=== PATIENT | male | born 1955 | race Two or more races ===

== ENCOUNTER 2020-12-28 08:35 | Outpatient (REF) | payer MEDICARE, MEDICAID, SELFPAY ==
--- NOTE | ~2020-12-28 | US_ITS ---
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 COMPARISON: Ultrasound abdomen 01/13/2020, 06/21/2017 TECHNIQUE: Real-time imaging of the abdominal viscera. Noninvasive ultrasound liver fibrosis assessment is performed using Marvel ElastPQ point quantification shear wave elastography (pSWE) with a 5 MHz transducer. Multiple elastography samples are obtained. FINDINGS: PANCREAS: The visualized pancreas is normal in size and echogenicity. There is no pancreatic ductal distention or retroperitoneal effusion. Portion distal body and tail are obscured by bowel gas and not completely imaged. ABDOMINAL AORTA: The proximal, middle, and distal aortic segments are normal in caliber. INFERIOR VENA CAVA: Visualized portions are normal. LIVER: The liver is normal in size and smooth in contour. There is mild coarsening of the hepatic parenchymal echotexture. There is mild increased hepatic parenchymal echogenicity consistent with mild hepatic steatosis. No focal hepatic parenchymal lesion or intrahepatic ductal dilatation. The right lobe measures 11.1 cm in length. The left lobe measures 9.1 cm in length. Portal flow is towards the liver (hepatopetal). Shear wave liver elastography median stiffness is 2.07 m/s (reference: normal median stiffness is 1.3 m/s or less). IQR/median stiffness to assess sampling precision is 0.29 (reference: optimal IQR/median stiffness is 0.15 or less). GALLBLADDER: The gallbladder is distended normally. There is no intraluminal stone or sludge or focal wall thickening. A few small echogenic foci are seen within the gallbladder wall with twinkling artifact on color Doppler suggesting mild cholesterolosis. COMMON BILE DUCT: Normal in caliber measuring 0.3 cm in diameter. RIGHT KIDNEY: Normal. No hydronephrosis. No renal calculi or focal parenchymal lesions. The kidney measures 10.0 cm in maximum dimension. LEFT KIDNEY: Normal. No hydronephrosis. No renal calculi or focal parenchymal lesions. The kidney measures 10.9 cm in maximum dimension. Small left renal cyst noted on prior exam is not demonstrated on current study. SPLEEN: Normal. The spleen measures 9.2 cm in maximum dimension. There is an incidental 1 cm splenule left upper quadrant. FREE FLUID: None. US/US abdomen comp w elastography IMPRESSION: 1. Liver normal in size. Mild hepatic steatosis. No focal parenchymal lesion. Portal flow towards the liver. Spleen normal in size. No ascites. 2. Liver elastography: Although measurements are consistent with compensated advanced chronic liver disease, there is statistical variability of the sampling which decreases accuracy. 3. Bowel gas obscures portions of distal body and tail pancreas. 4. Mild cholesterolosis gallbladder. No intraluminal stone, wall thickening, or sludge. No ductal dilatation.
== END 2020-12-28 08:36 | disposition home or self-care (01) ==
LOC: HO.US 08:35
PROVIDERS: PCP Internal Medicine; Visit Provider Internal Medicine
DX: K70.30 Alcoholic cirrhosis of liver without ascites (principal)
CPT/HCPCS: 76705; 76981

== ENCOUNTER 2021-07-23 08:31 | Outpatient (REF) | payer MEDICARE, MEDICAID, SELFPAY ==
--- NOTE | ~2021-07-23 | US_ITS ---
EXAMINATION: US ABDOMEN COMPLETE CLINICAL INFORMATION: Cirrhosis. COMPARISON: Ultrasound abdomen complete dated 01/13/2020 and 06/21/2017. TECHNIQUE: Real-time imaging of the abdominal viscera. FINDINGS: PANCREAS: Not well visualized. ABDOMINAL AORTA: Abdominal aorta is not well visualized. The proximal and distal abdominal aorta is normal in caliber. INFERIOR VENA CAVA: Visualized portions are normal. LIVER: The echotexture is heterogeneous and the contour of the liver is slightly irregular or scalloped suggestive of cirrhosis. No focal liver lesion is seen. There is no biliary duct dilatation. GALLBLADDER: Normal. The gallbladder is physiologically distended without evidence of stones, sludge, polyps, wall thickening or pericholecystic fluid. COMMON BILE DUCT: Normal in caliber measuring 0.35 cm in diameter. RIGHT KIDNEY: Normal. No hydronephrosis. No renal calculi or focal parenchymal lesions. The kidney measures 10.0 cm in maximum dimension. LEFT KIDNEY: Normal. No hydronephrosis. No renal calculi or focal parenchymal lesions. The kidney measures 10.4 cm in maximum dimension. SPLEEN: There is a 1 cm splenule. The spleen measures 9.3 cm in maximum dimension. FREE FLUID: None. US/US abdomen complete IMPRESSION: Mild cirrhotic changes of the liver. No focal liver lesion seen. Limited visualization of the pancreas and aorta.
== END 2021-07-23 08:32 | disposition home or self-care (01) ==
LOC: HO.US 08:31
PROVIDERS: PCP Internal Medicine; Visit Provider Internal Medicine
DX: R25.2 Cramp and spasm (principal); K70.30 Alcoholic cirrhosis of liver without ascites
CPT/HCPCS: 76700

== ENCOUNTER 2021-07-30 07:52 | Outpatient (REF) | payer MEDICARE, SELFPAY ==
[2021-07-30 09:28] LABS: MANUAL DIFF FLAG NO
[2021-07-30 09:30] LABS: Basophils Absolute Auto 0.1 X10*3/uL (0.0-0.2); Basophils Percent Auto 0.8 % (0-2); Eosinophils Absolute Auto 0.1 X10*3/uL (0.0-0.4); Eosinophils Percent Auto 1.2 % (0-4); Hematocrit 30.7 % (42-52); Hemoglobin 8.5 g/dl (14.0-18.0); Imm Gran Abs Auto 0.02 X10*3/uL (0.00-0.03); Imm Gran Pct Auto 0.3 % (0.0-0.4); Lymphocytes Absolute Auto 1.4 X10*3/uL (1.2-4.9); Lymphocytes Percent Auto 23.8 % (20-40); Mean Corpuscular HGB Conc 27.7 g/dl (31.0-36.0); Mean Corpuscular Hemoglobin 19.5 pg (27.0-33.0); Mean Corpuscular Volume 70.4 fL (80-98); Mean Platelet Volume 9.7 fL (9.4-12.4); Monocytes Absolute Auto 0.7 X10*3/uL (0.1-1.2); Neutrophils Absolute Auto 3.7 X10*3/uL (2.0-8.3); Neutrophils Percent Auto 62.9 % (45-73); Platelet Count 304 X10*3/uL (160-400); Red Blood Count 4.36 X10*6/uL (4.60-5.80); Red Cell Distribution Width 24.2 % (11.0-16.0); White Blood Count 5.9 X10*3/uL (4.8-10.8)
[2021-07-30 09:36] LABS: Ammonia 25 umol/L (13-55)
[2021-07-30 09:46] LABS: Alanine Aminotransferase 9 U/L (0-40); Albumin Level 4.4 g/dL (3.5-5.0); Alkaline Phosphatase 58 U/L (39-117); Anion Gap 11 (12-20); Aspartate Amino Transferase 16 U/L (5-37); Bilirubin Total 0.6 mg/dL (0.0-1.0); Blood Urea Nitrogen 7 mg/dL (9-16); Calcium 9.9 mg/dL (8.4-10.2); Carbon Dioxide 26 mmol/L (22-29); Chloride 108 mmol/L (96-108); Estimated Glomerular Filt Rate > 60; Glucose Random 101 mg/dL (60-115); Potassium 5.3 mmol/L (3.3-5.1); Sodium 140 mmol/L (135-145); Total Protein 7.2 g/dL (6.5-8.0)
[2021-07-30 10:08] LABS: Ferritin 20 ng/mL (20-250); HBS Num1 5.19 mIU/mL (0-7.99); HBc Num1 0.19 S/CO (0.00-0.79); HBsAGNum1 0.38 S/CO (0.00-0.99); HIV AB/AG Nonreactive (Nonreactive); HIV Num 1 0.17 S/CO (0.00-0.99); Hepatitis A Antibody IgM 0.46 Index (0-0.79); Hepatitis B Core Antibody Nonreactive (Nonreactive); Hepatitis B Surface Antigen Negative (Negative); TSH reflex Free T4 1.29 uIU/mL (0.32-4.0); ~HepC Num1 0.28 S/CO (0.00-0.79); ~Hepatitis A Antibody IgM Nonreactive (Nonreactive); ~Hepatitis B Surface Antibody NONREACTIVE (Nonreactive); ~Hepatitis C Antibody Nonreactive (Nonreactive)
[2021-07-30 10:21] LABS: Folate 7.6 ng/mL (> or = 4.0); Vitamin B12 928 pg/mL (200-900)
[2021-08-02 13:26] LABS: Alpha Fetoprotein 2.6 ng/mL (<6.1)
[2021-08-02 15:31] LABS: Mitochondrial Antibodies NEGATIVE (NEGATIVE)
[2021-08-03 12:46] LABS: Anti Nuclear Antibody Screen POSITIVE (NEGATIVE)
[2021-08-03 12:52] LABS: ANA Pattern 2 Nuclear, Speckled; ANA Titer 2 1:40 titer; Anti Nuclear Antibody Titer 1:40 titer
[2021-08-04 00:41] LABS: Smooth Muscle Antibody <20 U (<20)
[2021-08-04 14:45] LABS: Vitamin D 25-OH, D2 <4 ng/mL; Vitamin D 25-OH, D3 17 ng/mL; Vitamin D 25-OH, Total 17 ng/mL (30-100)
== END 2021-07-30 07:53 | disposition home or self-care (01) ==
LOC: HO.LAB 07:52
PROVIDERS: PCP Internal Medicine; Visit Provider Nurse Practitioner
DX: Z01.84 Encounter for antibody response examination (principal); Z11.4 Encounter for screening for human immunodeficiency virus [HIV]; K74.60 Unspecified cirrhosis of liver; R63.4 Abnormal weight loss; R25.2 Cramp and spasm; R53.83 Other fatigue
CPT/HCPCS: 36415; 80053; 82105; 82140; 82306; 82607; 82728; 82746; 84443; 85025; 86038; 86039; 86255; 86256; 86704; 86706; 86709; 86803; 87340; 87389; Q3014

== ENCOUNTER → 2021-08-04 13:49 | Outpatient (BNV) | payer MEDICARE, SELFPAY | PROVIDERS: PCP Internal Medicine; Referring Provider Internal Medicine; Visit Provider Internal Medicine | DX: D50.9 Iron deficiency anemia, unspecified (principal) | CPT/HCPCS: 99203; 99212; 99213; 99214; G2211 ==

== ENCOUNTER 2021-08-10 08:33 | Outpatient (REF) | payer MEDICARE, SELFPAY | END 2021-08-10 08:34 | disposition home or self-care (01) | LOC: HO.MDS 08:33 | PROVIDERS: PCP Internal Medicine; Visit Provider Internal Medicine | DX: D50.9 Iron deficiency anemia, unspecified (principal) | CPT/HCPCS: 96365; 96366; J1200; J1750; Q0163 ==

== ENCOUNTER → 2021-09-10 08:50 | Outpatient (BNVA) | payer MEDICARE, SELFPAY | PROVIDERS: PCP Internal Medicine; Referring Provider Internal Medicine; Visit Provider Nurse Practitioner | DX: K74.60 Unspecified cirrhosis of liver (principal); R63.4 Abnormal weight loss; R53.83 Other fatigue | CPT/HCPCS: 99212 ==

== ENCOUNTER 2021-10-11 09:34 | Day surgery (SDC) | payer MEDICARE, SELFPAY ==
[2021-10-05 11:52] VITALS: BMI 18.9
--- NOTE | 2021-10-08 11:00 | HO.ANESPROP2 ---
Documented by User: Abby Kennedy NP 10/08/21 11:02 HPI - Anesthesia Eval Consult details Narrative: 66yo M for Colonoscopy ETOH cirrhosis, but no ETOH x 10years PMFSH Active Problems Active Problems: All Active Problems (Updated 10/05/21 @ 11:54 by Angela Medley RN) Cirrhosis (Acute) Weight loss (Acute) Leg cramps (Acute) Fatigue (Acute) Iron deficiency anemia (Acute) Past Medical History Medical History (Updated 10/05/21 @ 11:54 by Angela Medley RN) COPD (chronic obstructive pulmonary disease) HTN (hypertension) Iron deficiency anemia Family History Family History Sister HTN (hypertension) Surgical History Surgical History (Updated 10/05/21 @ 11:51 by Angela Medley RN) Hx of elbow surgery Hx of hernia repair Social History Social History (Updated 10/05/21 @ 11:50 by Angela Medley RN) Alcohol intake: former Patient Tobacco Use Status: Current everyday Tobacco user Tobacco use type: Cigarette Cigarettes Per Day: 7 Years Smoked: 51 Smoked in Last 30 Days: Yes Use of substances other than those prescribed or required for medical reasons: No Are you DNR?: No Advance Directives: No Advance Directives Information Provided: Yes Advance Directives on File: No Recently lost weight without trying: Yes How much weight loss: 2-13 pounds Poor oral hygiene: No Meds Allergies Allergy/AdvReac Type Severity Reaction Status Date / Time acetaminophen [From TYLENOL] Allergy Unknown LIVER Verified 10/05/21 11:48 PROBLEMS Home Medications Medication Instructions Recorded Confirmed Last Taken Type cyanocobalamin (vitamin B-12) 1,000 mcg PO DAILY 07/30/21 10/05/21 Unknown History 1,000 mcg tablet ipratropium 20 mcg-albuterol 100 1 puff INHALATION QID PRN 07/30/21 10/05/21 Unknown History mcg/actuation mist for inhalation (Combivent Respimat) omeprazole 20 mg capsule,delayed 20 mg PO BID 07/30/21 10/05/21 Unknown History release propranolol 10 mg tablet 10 mg PO BID 07/30/21 10/05/21 Unknown History Exam Exam Date and Time: October 08, 2021 1100 Height,Weight and Vital Signs: Height 5 ft 5 in Weight 51.71 kg Pertinent Lab Results Pertinent Lab Results: Laboratory Tests 07/30/21 08/04/21 09:18 14:42 WBC 6.2 Hgb 8.0 L Hct 28.8 L Plt Count 278 Sodium 140 Potassium 5.3 H Chloride 108 Carbon Dioxide 26 BUN 7 L Creatinine 1.13 Assessment and Plan Assessment Anesthesia Assessment: Chart Reviewed Documented by User: Caitlyn Boss MD 10/11/21 10:28 [facility] Past Medical History Medical History (Updated 10/05/21 @ 11:54 by Angela Medley RN) COPD (chronic obstructive pulmonary disease) HTN (hypertension) Iron deficiency anemia Family History Family History Sister HTN (hypertension) Family history of problems with anesthesia: No Surgical History Surgical History (Updated 10/05/21 @ 11:51 by Angela Medley RN) Hx of elbow surgery Hx of hernia repair History of Problems with Anesthesia: No Social History Social History (Updated 10/05/21 @ 11:50 by Angela Medley RN) Alcohol intake: former Patient Tobacco Use Status: Current everyday Tobacco user Tobacco use type: Cigarette Cigarettes Per Day: 7 Years Smoked: 51 Smoked in Last 30 Days: Yes Use of substances other than those prescribed or required for medical reasons: No Are you DNR?: No Advance Directives: No Advance Directives Information Provided: Yes Advance Directives on File: No Recently lost weight without trying: Yes How much weight loss: 2-13 pounds Poor oral hygiene: No Meds Allergies Allergy/AdvReac Type Severity Reaction Status Date / Time acetaminophen [From TYLENOL] Allergy Unknown LIVER Verified 10/05/21 11:48 PROBLEMS Home Medications Medication Instructions Recorded Confirmed Last Taken Type cyanocobalamin (vitamin B-12) 1,000 mcg PO DAILY 07/30/21 10/05/21 Unknown History 1,000 mcg tablet ipratropium 20 mcg-albuterol 100 1 puff INHALATION QID PRN 07/30/21 10/05/21 Unknown History mcg/actuation mist for inhalation (Combivent Respimat) omeprazole 20 mg capsule,delayed 20 mg PO BID 07/30/21 10/05/21 Unknown History release propranolol 10 mg tablet 10 mg PO BID 07/30/21 10/05/21 Unknown History Exam Airway Mallampati Class: II Neck ROM: Full Denture: Upper Loose/Missing/Broken Teeth: Yes (Missing multiple teeth, denies any loose, poor dentition) Heart: rrr Lungs: cta Assessment and Plan Assessment Anesthesia Assessment: Anesthesia Plan Discussed and Chart Reviewed Final Anesthetic Review Family History of Problems with Anesthesia: No History of Problems with Anesthesia: No NPO: Yes (Sip water with med) ASA Class: III Final Preanesthetic Review: No Changes in Pt Med Stat, Meds/Allgs Chart Reviewed and Consent Obtained/Reviewed Patient Risk: Intermediate Procedure Risk: Intermediate Anesthetic Plan Anesthetic Plan: MAC: Disposition: Standard PACU
--- NOTE | 2021-10-11 10:37 | MHC.SHP ---
Pre-Procedural Eval Section A Date of Service: 10/11/21 The patient is an INPATIENT: No The History & Physical has been completed within 30 days and I have reviewed it.: No Section B Chief Complaint: Colon cancer screening, iron def anemia, cirrhosis Details of Present Illness: Colon cancer screening, EVERETT Relevant Family History (Specify if Yes): No Relevant Social History: Tobacco Use Present Medications: see Short Stay Collaborative assessment Medical History: Significant History (Iron deficiency anemia, cirrhosis) History of Previous Operations: Relevant previous surgery/procedure and date(s) (Hx of elbow surgery Hx of hernia repair) Allergies: Allergies Allergy/AdvReac Type Severity Reaction Status Date / Time acetaminophen [From TYLENOL] Allergy Unknown LIVER Verified 10/05/21 11:48 PROBLEMS Review of Systems Sugical H&P ROS: Negative: Constitution, Cardiovascular, Respiratory and Gastrointestinal Exam Surgical H&P Exam: Normal: Heart, Normal: Lungs, Normal: Extremities and Normal: Abdomen Plan Diagnosis/Plan: Change (Add EGD for evaluation of EVERETT) I have reviewed the history and physical and performed a pertinent physical examination on my patient. No changes have occurred unless specified.
[2021-10-11 10:40] VITALS: BP 116/58; PULSE 58; RESP 18; TEMP 36.4; O2SAT 100
[2021-10-11] MEDS: Lactated Ringers 1,000 ML 100 ML IVCONT (10:45)
--- NOTE | 2021-10-11 10:50 | P.BOP_ITS ---
Brief Operative Note Date of Service: 10/11/21 Pre-op diagnosis: Colon cancer screening, iron deficiency anemia Post-op diagnosis: other (Gastritis, hiatal hernia, duodenal AVM) Procedure: FLEXIBLE TRANSORAL UPPER GASTROINTESTINAL ENDOSCOPY WITH BIOPSIES AND APC OF DUODENAL AVM AND COLONOSCOPY TILL CECUM WITH SNARE POLYPECTOMY AND SUBMUCOSAL INJECTION UPPER ENDOSCOPY Consent: Indications for the procedure and potential complications of bleeding, perforation, reaction to medications and missed diagnosis were discussed with the patient and informed consent was obtained. Instrument: Olympus GIF H 190 mid size upper endoscope Monitoring: Vital signs and clinical assessment, continuous EKG monitoring, Pulse oximetry, Carbon Dioxide monitoring and blood pressure monitoring were done throughout the procedure. Procedure: The patient was placed in the left lateral decubitis position and pre-procedure medications were administered and a bite block was placed. The endoscope was inserted into the mouth and advanced under direct vision to the third part of duodenum. A careful inspection was made as the upper endoscope was withdrawn including a retroflexed examination of the proximal stomach; Findings and interventions are described below. Findings: Larynx: Normal Esophagus: GE junction at 36 cms, small hiatal hernia 36 to 38 cms. No esophagitis or Napoles's. Stomach: Moderate diffuse gastric erythema with nodular appearing mucosa in the body and fundus. One small erosion in the antrum. Biopsies were obtained. Grade 2 flap valve on retroflexed examination of the cardia. Duodenum: Normal bulb and descending duodenum. Biopsies were obtained from 3rd part of duodenum to check for celiac sprue. 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 Intervention: Biopsies as noted above COLONOSCOPY PROCEDURE NOTE Consent: Indications for the procedure and potential complications of bleeding, perforation, reaction to medications and missed diagnosis were discussed with the patient and informed consent was obtained. Instrument: Olympus PCF H 190 L variable stiffness pediatric colonoscope Monitoring: Vital signs and clinical assessment, intermittent blood pressure monitoring, continuous EKG monitoring, Pulse oximetry and Carbon Dioxide monitoring were done throughout the procedure. Colon withdrawl time was 21 minutes. Procedure: The patient was placed in the left lateral decubitis position and pre-procedure medications were administered. After a digital rectal examination of the ano-rectum, the video colonoscope was inserted into the rectum and advanced through the colon to the cecum. The colonoscope was slowly withdrawn in a retrograde panoramic fashion and the colon mucosa was carefully examined including a retroflexed view of the rectum. Findings and interventions are described below. Procedure Difficulty: : Without difficulty Findings: Terminal Ileum: Not evaluated Cecum: Normal Ascending Colon: Normal Transverse Colon: Two 10 to 15 mm sessile polyps removed with a hot snare. A 2 cms sessile polyp raised with 4 cc of normal saline and removed with a hot snare. Descending Colon: Normal Sigmoid Colon: A 10-12 mm sessile polyp removed with a hot snare. Mild diverticulosis Rectum: Normal Ano-rectum: Large non-bleeding internal hemorrhoids Colon preparation: Good Impression and Post Procedure Diagnosis: Endoscopy Findings: ESOPHAGUS: Small hiatal hernia STOMACH: Moderate diffuse gastric erythema with nodular appearing mucosa in the body and fundus. One small erosion in the antrum DUODENUM: Biopsies were obtained from 3rd part of duodenum to check for celiac sprue. 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 Colonoscopy Findings: Four medium sized polyps removed Mild diverticulosis seen in the sigmoid colon Large hemorrhoids on retroflexed exam. 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 Plan: Await pathology results Patient has an appointment on 10/25/21 in the GI Clinic with Mable Morgan NP. If patient has continued anemia, consider further evaluation with Capsule Endoscopy to check for additional small bowel AVMs. Repeat Colonoscopy interval based on path results - in 3 years if polyps are adenomatous and 10 years if polyps are hyperplastic. Above findings were reviewed with the patient and hiatal hernia, colon polyps and hemorrhoids handouts were given in the discharge area Surgeon: Giulia Acevedo MD Anesthesia: MAC (Debby Fernandez CRNA) Was an Heating And Blending Supervisor used for this Procedure?: Yes Heating And Blending Supervisor: Regi Bernal Estimated blood loss (mL): 0 Pathology: other (A. small bowel biopsies, R/O sprue B. gastric antrum biopsies, R/O H. pylori C. gastric body biopsies, R/O gastritis D. transverse colon polyps (3) E. sigmoid polyp) Condition: stable Disposition: PACU
--- NOTE | 2021-10-11 10:52 | W.PM.OPN ---
Operative Note Operative Note Date of Service: 10/11/21 Narrative: Pre-op diagnosis:?Colon cancer screening, iron deficiency anemia Post-op diagnosis:?other (Gastritis, hiatal hernia, duodenal AVM) Procedure:? FLEXIBLE TRANSORAL UPPER GASTROINTESTINAL ENDOSCOPY WITH BIOPSIES AND APC OF DUODENAL AVM AND COLONOSCOPY TILL CECUM WITH SNARE POLYPECTOMY AND SUBMUCOSAL INJECTION UPPER ENDOSCOPY Consent:?Indications for the procedure and potential complications of bleeding, perforation, reaction to medications and missed diagnosis were discussed with the patient and informed consent was obtained. Instrument:?Olympus GIF H 190 mid size upper endoscope Monitoring: Vital signs and clinical assessment, continuous EKG monitoring, Pulse oximetry, Carbon Dioxide monitoring and blood pressure monitoring were done throughout the procedure. Procedure:?The patient was placed in the left lateral decubitis position and pre-procedure medications were administered and a bite block was placed. The endoscope was inserted into the mouth and advanced under direct vision to the third part of duodenum. A careful inspection was made as the upper endoscope was withdrawn including a retroflexed examination of the proximal stomach; Findings and interventions are described below. Findings: Larynx:? Normal Esophagus:?GE junction at 36 cms, small hiatal hernia 36 to 38 cms. No esophagitis or Napoles's. Stomach:?Moderate diffuse gastric erythema with nodular appearing mucosa in the body and fundus. One small erosion in the antrum.? Biopsies were obtained. Grade 2 flap valve on retroflexed examination of the cardia. Duodenum:?Normal bulb and descending duodenum.? Biopsies were obtained from 3rd part of duodenum to check for celiac sprue. 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 Intervention:?Biopsies as noted above COLONOSCOPY PROCEDURE NOTE Consent:?Indications for the procedure and potential complications of bleeding, perforation, reaction to medications and missed diagnosis were discussed with the patient and informed consent was obtained. Instrument:?Olympus PCF H 190 L variable stiffness pediatric colonoscope Monitoring:?Vital signs and clinical assessment, intermittent blood pressure monitoring, continuous EKG monitoring, Pulse oximetry and Carbon Dioxide monitoring were done throughout the procedure. Colon withdrawl time was 21 minutes. Procedure:?The patient was placed in the left lateral decubitis position and pre-procedure medications were administered. After a digital rectal examination of the ano-rectum, the video colonoscope was inserted into the rectum and advanced through the colon to the cecum. The colonoscope was slowly withdrawn in a retrograde panoramic fashion and the colon mucosa was carefully examined including a retroflexed view of the rectum. Findings and interventions are described below. Procedure Difficulty:?: Without difficulty Findings: Terminal Ileum: Not evaluated Cecum:? Normal Ascending Colon:? Normal Transverse Colon:? Two 10 to 15 mm sessile polyps removed with a hot snare. A 2 cms sessile polyp raised with 4 cc of normal saline and removed with a hot snare. Descending Colon:? Normal Sigmoid Colon:? A 10-12 mm sessile polyp removed with a hot snare. Mild diverticulosis Rectum:? Normal Ano-rectum:? Large non-bleeding internal hemorrhoids Colon preparation:? Good? Impression and Post Procedure Diagnosis: Endoscopy Findings: ESOPHAGUS: Small hiatal hernia STOMACH: Moderate diffuse gastric erythema with nodular appearing mucosa in the body and fundus. One small erosion in the antrum DUODENUM:??Biopsies were obtained from 3rd part of duodenum to check for celiac sprue.? 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 Colonoscopy Findings: Four medium sized polyps removed Mild diverticulosis seen in the sigmoid colon Large hemorrhoids on retroflexed exam. 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 Plan: Await pathology results Patient has an appointment on 10/25/21 in the GI Clinic with? Mable Morgan NP. If patient has continued anemia, consider further evaluation with Capsule Endoscopy to check for additional small bowel AVMs. Repeat Colonoscopy interval based on path results - in 3 years if polyps are adenomatous and 10 years if polyps are hyperplastic. Above findings were reviewed with the patient and hiatal hernia, colon polyps and hemorrhoids handouts were given in the discharge area Surgeon:?Giulia Acevedo MD Anesthesia:?MAC (Debby Fernandez CRNA) Was an High School Library Media Specialist used for this Procedure?:?Yes High School Library Media Specialist:?Regi Bernal Estimated blood loss (mL):?0 Pathology:?other (A. small bowel biopsies, R/O sprue? B. gastric antrum biopsies, R/O H. pylori? C. gastric body biopsies, R/O gastritis? D. transverse colon polyps (3)? E. sigmoid polyp) Condition:?stable Disposition:?PACU
[2021-10-11 11:51] VITALS: BP 85/44; PULSE 59; RESP 16; TEMP 36.4; O2SAT 100
[2021-10-11 12:06] VITALS: BP 105/59; PULSE 58; RESP 17; TEMP 36.4; O2SAT 98
== END 2021-10-11 12:50 | disposition home or self-care (01) ==
PROVIDERS: PCP Internal Medicine; Visit Provider Internal Medicine Gastroenterology
PROC: 0DJD8ZZ Inspection of Lower Intestinal Tract, Via Natural or Artificial Opening Endoscopic (ICD-10-PCS; CPT 45378; principal; 2021-10-11 12:50)
DX: Z12.11 Encounter for screening for malignant neoplasm of colon (principal); D12.3 Benign neoplasm of transverse colon; D12.5 Benign neoplasm of sigmoid colon; K57.30 Diverticulosis of large intestine without perforation or abscess without bleeding; K64.8 Other hemorrhoids; D50.9 Iron deficiency anemia, unspecified; K74.60 Unspecified cirrhosis of liver; K31.819 Angiodysplasia of stomach and duodenum without bleeding; I10 Essential (primary) hypertension; J44.9 Chronic obstructive pulmonary disease, unspecified; K29.50 Unspecified chronic gastritis without bleeding; K44.9 Diaphragmatic hernia without obstruction or gangrene; R25.2 Cramp and spasm; R53.83 Other fatigue; R63.4 Abnormal weight loss; Z68.1 Body mass index [BMI] 19.9 or less, adult
CPT/HCPCS: 45385; 45381; 43270; 43239; 88305; 88342

== ENCOUNTER → 2021-10-25 12:33 | Outpatient (BNVA) | payer MEDICARE, SELFPAY | PROVIDERS: PCP Internal Medicine; Referring Provider Internal Medicine; Visit Provider Nurse Practitioner | DX: D12.6 Benign neoplasm of colon, unspecified (principal) | CPT/HCPCS: 99212 ==

== ENCOUNTER 2022-06-23 08:28 | Outpatient (REF) | payer MEDICARE, SELFPAY ==
--- NOTE | ~2022-06-23 | US_ITS ---
EXAMINATION: US ABDOMEN COMPLETE CLINICAL INFORMATION: Alcoholic cirrhosis. COMPARISON: Ultrasound abdomen complete 07/23/2021 and 12/28/2020. TECHNIQUE: Real-time imaging of the abdominal viscera. FINDINGS: PANCREAS: Visualized portions of the pancreas demonstrate heterogeneous echotexture nonspecific. The tail is not well visualized. ABDOMINAL AORTA: Atherosclerotic calcifications of the distal aorta. The remaining segments are unremarkable. INFERIOR VENA CAVA: Visualized portions are normal. LIVER: Calcification in the right hepatic lobe measuring 2 mm. Liver demonstrates a nodular contour with heterogeneous echotexture suggesting cirrhotic morphology. The liver is normal in size. No focal hepatic lesion. There is no intrahepatic biliary duct dilatation seen. GALLBLADDER: Gallbladder is mildly contracted with a region of focal thickening measuring up to 7 mm with twinkle artifact nonspecific though may represent an element of adenomyomatosis the proper clinical setting. No evidence of calculi, pericholecystic fluid. Sonographic Harper sign is negative. COMMON BILE DUCT: Normal in caliber measuring 0.4 cm in diameter. RIGHT KIDNEY: Normal. No hydronephrosis. No renal calculi or focal parenchymal lesions. The kidney measures 10.3 cm in maximum dimension. LEFT KIDNEY: Normal. No hydronephrosis. No renal calculi or focal parenchymal lesions. The kidney measures 10.3 cm in maximum dimension. SPLEEN: Splenule noted measuring up to 1.0 cm. The spleen measures 10.5 cm in maximum dimension. FREE FLUID: None. US/US abdomen complete IMPRESSION: 1. Calcification in the right hepatic lobe measuring 2 mm. 2. Liver demonstrates a nodular contour with heterogeneous echotexture suggesting cirrhotic morphology. 3. Gallbladder is mildly contracted with a region of focal thickening measuring up to 7 mm with twinkle artifact nonspecific though may represent an element of adenomyomatosis in the proper clinical setting. 4. Splenule noted measuring up to 1.0 cm.
== END 2022-06-23 08:29 | disposition home or self-care (01) ==
LOC: HO.US 08:28
PROVIDERS: Visit Provider Internal Medicine
DX: K70.30 Alcoholic cirrhosis of liver without ascites (principal)
CPT/HCPCS: 76700

== ENCOUNTER 2022-07-19 11:27 | Outpatient (REF) | payer OTHER, SELFPAY | END 2022-07-19 11:28 | disposition home or self-care (01) | LOC: HO.MDS 11:27 | PROVIDERS: Visit Provider Internal Medicine | DX: D50.9 Iron deficiency anemia, unspecified (principal) | CPT/HCPCS: 96365; J1756 ==

== ENCOUNTER 2022-07-29 09:32 | Outpatient (REF) | payer OTHER, SELFPAY | END 2022-07-29 09:33 | disposition home or self-care (01) | LOC: HO.MDS 09:32 | PROVIDERS: Visit Provider Internal Medicine | DX: D50.9 Iron deficiency anemia, unspecified (principal) | CPT/HCPCS: 96365; J1756 ==

== ENCOUNTER 2022-08-04 08:28 | Outpatient (REF) | payer OTHER, SELFPAY | END 2022-08-04 08:29 | disposition home or self-care (01) | LOC: HO.MDS 08:28 | PROVIDERS: Visit Provider Internal Medicine | DX: D50.9 Iron deficiency anemia, unspecified (principal) | CPT/HCPCS: 96365; J1756 ==

== ENCOUNTER → 2022-12-07 08:34 | Outpatient (BNVA) | payer OTHER, SELFPAY | PROVIDERS: Visit Provider Surgery | DX: R10.32 Left lower quadrant pain (principal) | CPT/HCPCS: 99202 ==

== ENCOUNTER 2023-02-23 08:26 | Outpatient (REF) | payer OTHER, SELFPAY | END 2023-02-23 08:27 | disposition home or self-care (01) | LOC: HO.MDS 08:26 | PROVIDERS: Visit Provider Internal Medicine | DX: D50.9 Iron deficiency anemia, unspecified (principal) | CPT/HCPCS: 96365; J1756 ==

== ENCOUNTER 2023-03-02 09:05 | Outpatient (REF) | payer OTHER, SELFPAY | END 2023-03-02 09:06 | disposition home or self-care (01) | LOC: HO.MDS 09:05 | PROVIDERS: Visit Provider Internal Medicine | DX: D50.9 Iron deficiency anemia, unspecified (principal) | CPT/HCPCS: 96365; J1756 ==

== ENCOUNTER 2023-03-09 08:26 | Outpatient (REF) | payer OTHER, SELFPAY | END 2023-03-09 08:27 | disposition home or self-care (01) | LOC: HO.MDS 08:26 | PROVIDERS: Visit Provider Internal Medicine | DX: D50.9 Iron deficiency anemia, unspecified (principal) | CPT/HCPCS: 96365; J1756 ==

== ENCOUNTER 2023-04-20 11:17 | Outpatient (REF) | payer OTHER, SELFPAY ==
[2023-04-20 11:28] LABS: MANUAL DIFF FLAG NO
[2023-04-20 12:47] LABS: Basophils Absolute Auto 0.1 X10*3/uL (0.0-0.2); Basophils Percent Auto 0.9 % (0-2); Eosinophils Absolute Auto 0.1 X10*3/uL (0.0-0.4); Eosinophils Percent Auto 1.5 % (0-4); Hemoglobin 12.2 g/dl (14.0-18.0); Imm Gran Abs Auto 0.01 X10*3/uL (0.00-0.03); Imm Gran Pct Auto 0.1 % (0.0-0.4); Lymphocytes Percent Auto 25.3 % (20-40); Mean Corpuscular HGB Conc 32.1 g/dl (31.0-36.0); Mean Corpuscular Hemoglobin 25.7 pg (27.0-33.0); Mean Platelet Volume 11.3 fL (9.4-12.4); Monocytes Absolute Auto 0.8 X10*3/uL (0.1-1.2); Monocytes Percent Auto 10.4 % (2-11); Neutrophils Absolute Auto 4.9 x10*3/uL (2.0-8.3); Neutrophils Percent Auto 61.8 % (45-73); Platelet Count 191 X10*3/uL (160-400); Red Blood Count 4.75 X10*6/uL (4.60-5.80); Red Cell Distribution Width 18.6 % (11.0-16.0); White Blood Count 7.9 X10*3/uL (4.8-10.8)
[2023-04-20 13:16] LABS: Alanine Aminotransferase 11 U/L (0-40); Albumin Level 4.4 g/dL (3.5-5.0); Alkaline Phosphatase 63 U/L (39-117); Anion Gap 12 (12-20); Aspartate Amino Transferase 17 U/L (5-37); Bilirubin Total 0.6 mg/dL (0.0-1.0); Blood Urea Nitrogen 4 mg/dL (9-16); Calcium 9.6 mg/dL (8.4-10.2); Carbon Dioxide 27 mmol/L (22-29); Chloride 103 mmol/L (96-108); Cholesterol 127 mg/dL; Estimated Glomerular Filt Rate > 60; Glucose Fasting 81 mg/dL (60-99); HDL Cholesterol 39 mg/dL; LDL Cholesterol Calculated 71 mg/dl; Potassium 4.1 mmol/L (3.3-5.1); Sodium 138 mmol/L (135-145); Total Protein 7.6 g/dL (6.5-8.0); Triglycerides 88 mg/dL
[2023-04-20 13:33] LABS: Vitamin D 25-OH Total 12.4 ng/mL (>30)
== END 2023-04-20 11:18 | disposition home or self-care (01) ==
LOC: HO.LAB 11:17
PROVIDERS: PCP Internal Medicine; Visit Provider Internal Medicine
DX: I10 Essential (primary) hypertension (principal); D50.9 Iron deficiency anemia, unspecified; E55.9 Vitamin D deficiency, unspecified; E78.00 Pure hypercholesterolemia, unspecified
CPT/HCPCS: 36415; 80053; 80061; 82306; 85025

== ENCOUNTER 2023-04-28 09:25 | Outpatient (REF) | payer OTHER, SELFPAY ==
[2023-04-28 10:55] LABS: Appearance Urine Clear; Color Urine Yellow; Glucose Urine UA Negative (Negative); Leukocyte Esterase Urine Negative (Negative); Nitrite Urine Negative (Negative); Specific Gravity - Urine <= 1.005 (1.005-1.025); Urine Blood Negative (Negative); Urine Ketones Negative (Negative); Urine Protein Negative (Neg-Trace)
== END 2023-04-28 09:26 | disposition home or self-care (01) ==
LOC: HO.LAB 09:25
PROVIDERS: PCP Internal Medicine; Visit Provider Internal Medicine
DX: R30.0 Dysuria (principal)
CPT/HCPCS: 81003

== ENCOUNTER 2023-07-25 10:26 | Outpatient (REF) | payer OTHER, SELFPAY ==
[2023-07-25 10:52] LABS: MANUAL DIFF FLAG NO
[2023-07-25 11:52] LABS: Basophils Absolute Auto 0.1 X10*3/uL (0.0-0.2); Basophils Percent Auto 1.3 % (0-2); Eosinophils Absolute Auto 0.1 X10*3/uL (0.0-0.4); Eosinophils Percent Auto 1.7 % (0-4); Hematocrit 35.1 % (42.0-52.0); Hemoglobin 11.3 g/dl (14.0-18.0); Imm Gran Abs Auto 0.02 X10*3/uL (0.00-0.03); Imm Gran Pct Auto 0.4 % (0.0-0.4); Lymphocytes Absolute Auto 1.9 X10*3/uL (1.2-4.9); Lymphocytes Percent Auto 35.2 % (20-40); Mean Corpuscular HGB Conc 32.2 g/dl (31.0-36.0); Mean Corpuscular Hemoglobin 25.8 pg (27.0-33.0); Mean Corpuscular Volume 80.1 fL (80.0-98.0); Mean Platelet Volume 11.2 fL (9.4-12.4); Monocytes Absolute Auto 0.6 X10*3/uL (0.1-1.2); Monocytes Percent Auto 11.1 % (2-11); Neutrophils Absolute Auto 2.7 x10*3/uL (2.0-8.3); Neutrophils Percent Auto 50.3 % (45-73); Platelet Count 205 X10*3/uL (160-400); Red Blood Count 4.38 X10*6/uL (4.60-5.80); White Blood Count 5.3 X10*3/uL (4.8-10.8)
[2023-07-25 11:55] LABS: Appearance Urine Clear; Color Urine Yellow; Glucose Urine UA Negative (Negative); Leukocyte Esterase Urine Negative (Negative); Nitrite Urine Negative (Negative); PH 6.5 (5.0-9.0); Specific Gravity - Urine 1.015 (1.005-1.025); Urine Blood Negative (Negative); Urine Ketones Negative (Negative); Urine Protein Negative (Neg-Trace)
[2023-07-25 14:50] LABS: Alanine Aminotransferase 10 U/L (0-40); Albumin Level 4.2 g/dL (3.5-5.0); Alkaline Phosphatase 58 U/L (39-117); Anion Gap 8 (12-20); Aspartate Amino Transferase 16 U/L (5-37); Bilirubin Total 0.6 mg/dL (0.0-1.0); Blood Urea Nitrogen 7 mg/dL (9-16); Calcium 9.4 mg/dL (8.4-10.2); Carbon Dioxide 28 mmol/L (22-29); Chloride 106 mmol/L (96-108); Cholesterol 187 mg/dL (<200); Estimated Glomerular Filt Rate > 60; Glucose Fasting 84 mg/dL (60-99); HDL Cholesterol 31 mg/dL (>40); LDL Cholesterol Calculated 135 mg/dL (<100); Potassium 4.4 mmol/L (3.3-5.1); Sodium 138 mmol/L (135-145); Total Protein 7.4 g/dL (6.5-8.0); Triglycerides 107 mg/dL (<150)
[2023-07-25 14:52] LABS: TSH reflex Free T4 1.64 uIU/mL (0.32-4.0); Vitamin D 25-OH Total 17.9 ng/mL (>30)
== END 2023-07-25 10:27 | disposition home or self-care (01) ==
LOC: HO.LAB 10:26
PROVIDERS: PCP Internal Medicine; Visit Provider Internal Medicine
DX: D50.9 Iron deficiency anemia, unspecified (principal); I10 Essential (primary) hypertension; E55.9 Vitamin D deficiency, unspecified; R30.0 Dysuria; E78.00 Pure hypercholesterolemia, unspecified
CPT/HCPCS: 36415; 80053; 80061; 81003; 82306; 84443; 85025

== ENCOUNTER 2023-07-26 10:37 | Outpatient (AMB) | payer OTHER, SELFPAY ==
--- NOTE | 2023-07-26 10:45 | A.OFFPC_ITS ---
Vital Signs 07/26/23 10:46 Height 5 ft 5 in Weight 117 lb 2 oz BMI 19.5 BP 110/78 Blood Pressure Location Lt brachial Position Sitting Pulse 57 Pulse Source Pulse Oximeter Pulse Oximetry (%) 98 Oxygen Delivery Method Room Air Intake Visit Reasons: hyperlipidemia, anemia, GI bleed Sheet Ironworker Required: No Accompanied by: Self / Same As Patient Allergies iron Adverse Reaction (Severe, Verified 07/26/23 11:21) abdominal pain and severe constipation acetaminophen [From TYLENOL] Adverse Reaction (Unknown, Verified 07/26/23 11:21) Liver problems Medication List - Last Reconciled 07/26/23 by Scar Espinoza MD cyanocobalamin (vitamin B-12) 1,000 mcg PO DAILY ipratropium-albuterol 20-100 mcg/actuation (Combivent Respimat) 1 puff inhalation QID PRN omeprazole 20 mg PO BID propranolol 10 mg PO BID rosuvastatin 5 mg PO DAILY Tobacco use date assessed: 07/26/23 Fall risk assessment: No Falls in past year Last assessed Fall Risk: 07/26/23 Dental Screening Dental Screen Date: 07/26/23 Did you have a dental visit in the last 12 months?: No Did you have a dental problem in the last 6 months where you did not have access to dental care?: No Was dental information given to patient?: No HPI hyperlipidemia, anemia, GI bleed HPI Details Patient comes in today for his follow up visit States that he feels okay Relates that he has been out of his Rosuvastatin Rx for over a week now; states that he tried to call in for his refill but that it did not sound like the person he talked to on the phone understood which medicine he needed refills on He denies any headaches or dizziness Denies any chest pains, no SOB No nausea/vomiting, no abdominal pain No change in bowel habits noted He continues to follow up with Dr. Ventura for his anemia (iron deficiency) and gets IV iron infusion as needed Had his follow up labs done yesterday - to discuss his results Patient was also recently seen reportedly by an insurance health intensive care ambulance paramedic and was advised to speak with his PCP about some screening procedures and to get his vaccinations updated - these include a low dose CT lung screening as well as his influenza and pneumonia and flu vaccinations [facility] Medical History (Updated 07/26/23 @ 11:50 by Scar Espinoza MD) Benign essential hypertension COPD (chronic obstructive pulmonary disease) Duodenal arteriovenous malformation Gastritis HTN (hypertension) Influenza vaccination given (~10/19/22) Iron deficiency anemia Left inguinal pain Pure hypercholesterolemia Smoker Vitamin D deficiency Surgical History (Updated 07/26/23 @ 11:45 by Scar Espinoza MD) History of colonoscopy (~10/11/21) History of esophagogastroduodenoscopy (EGD) (~10/11/21) Hx of elbow surgery Hx of hernia repair Family History Sister HTN (hypertension) Social History Household Members: [facility] Are you a primary health care coach to a significant other at home: No Do you presently have visiting nurse or other home services: No Alcohol intake: former Patient Tobacco Use Status: Current everyday Tobacco user Tobacco use type: Cigarette Years Smoked: 51 e-Cigarette/Vaping Use: Never Used service: No Current occupational status: disabled Cognitive needs: No Hearing needs: No Vision needs: No Questionnaire PHQ-9 Over the last 2 weeks, how often have you been bothered by any of the following problems? 1. Little interest or pleasure in doing things: not at all 2. Feeling down, depressed, or hopeless: not at all 3. Trouble falling or staying asleep, or sleeping too much: not at all 4. Feeling tired or having little energy: not at all 5. Poor appetite or overeating: not at all 6. Feeling bad about yourself - or that you are a failure or have let yourself or your family down: not at all 7. Trouble concentrating on things, such as reading the newspaper or watching television: not at all 8. Moving or speaking so slowly that other people could have noticed. Or the opposite - being so fidgety or restless that you have been moving around a lot more than usual: not at all 9. Thoughts that you would be better off or of hurting yourself in some way: not at all Total score: 0 Depression Screening Interpretation: Negative 00533 - PHQ-9 Billing: Yes Source: Developed by Drs. Abdirashid Nava, Cara Benson, Qamar Kan and colleagues, with an educational atif from [employer]. Thrive Questionnaire Date Thrive assessed: 07/26/23 I am a: Patient What is your living situation today?: I have a steady place to live Within the past 12 months, did the food you bought not last and you didn't have the money to get more?: Never true Within the past 12 months, did you worry whether your food would run out before you got money to buy more?: Never true Do you have trouble paying for medicines?: No Do you have trouble getting transportation to medical appointments?: No Do you have trouble paying your heating and electricity bill?: No Do you have trouble taking care of your child, family member or friend?: No Do you have trouble with day-to-day activities such as bathing, preparing meals, shopping, managing finances, etc.?: No Are you currently unemployed and looking for a job?: No Are you interested in more education?: No Please select the resources that you would like help with: None Currently or been in a relationship where the following occur: no concerns reported AUDIT C Alcohol Use Questionnaire (AUDIT-C) 1. How often do you have a drink containing alcohol?: Never 3. How often do you have six or more drinks on one occasion?: Never Total Score: 0 Score Reviewed/Action Taken: Yes CHACHO-7 AMB Questionnaire CHACHO-7 Date CHACHO - 7 assessed: 07/26/23 Feeling nervous, anxious, or on edge: 0 = Not at all Not being able to stop or control worryin = Not at all Worrying too much about different things: 0 = Not at all Trouble relaxin = Not at all Being so restless that it is hard to sit still: 0 = Not at all Becoming easily annoyed or irritable: 0 = Not at all Feeling afraid as if something awful might happen: 0 = Not at all Total CHACHO-7 score (0-4 normal; 5-9 mild; 10-14 moderate; 15-21 severe): 0 Source: Developed by Drs. Abdirashid Nava, Cara Benson, Qamar Kan and colleagues, with an educational atif from [employer]. Review of Systems Const Denies chills, Denies fatigue, Denies fever(s) and Denies headache(s) ENT Denies dysphagia, Denies dizziness, Denies otalgia, Denies headache(s), Denies neck pain, Denies odynophagia and Denies sore throat Card Denies chest pain, Denies palpitations and Denies dyspnea Resp Denies cough and Denies dyspnea GI Denies abdominal pain, Denies constipation, Denies dysphagia, Denies heartburn, Denies diarrhea, Denies nausea, Denies odynophagia and Denies vomiting Denies dysuria, Denies nocturia and Denies urinary frequency Musc Denies neck pain Skin/Breast Denies rash Neuro Denies dizziness and Denies headache(s) Endo Denies fatigue and Denies palpitations Physical exam (Primary Care) Vital Signs: Last Vital Signs Pulse 57 07/26/23 10:46 BP 110/78 07/26/23 10:46 Pulse Ox 98 07/26/23 10:46 Oxygen Delivery Method Room Air 07/26/23 10:46 BMI result Body Mass Index 19.5 Tobacco/Smoking Status: Tobacco use Status Tobacco use date assessed 07/26/23 07/26/23 10:50 Patient Tobacco Use Status Current everyday Tobacco 07/26/23 10:50 Tobacco use type Cigarette 07/26/23 10:50 e-Cigarette/Vaping Use Never Used 07/26/23 10:50 PHQ-9: PHQ-9 Score PHQ-9: Total score 0 07/26/23 11:23 Depression Screening Interpretation: Negative Thrive Assessment: Date of Thrive Assessment Date Thrive assessed 07/26/23 07/26/23 10:50 Currently or been in a relationship where the following occur: no concerns reported Const General: no acute distress and alert HENMT Ears: TM's normal bilaterally and EAC's normal Throat: Yes posterior oropharynx normal and Yes tonsils normal (no TP congestion) Neck Neck: Yes no lymphadenopathy and Yes supple Resp Auscultation: clear to auscultation bilaterally, no rales and no wheezes Cardio Rate: regular rate Rhythm: regular rhythm Heart sounds: no murmurs GI Palpation (GI): Soft to palpation, nontender and No hepatosplenomegaly present Skin General skin exam: no rashes or lesions noted Extrem General: Yes no clubbing, cyanosis or edema Immunizations pneumoc 20-aspen conj-dip cr(PF) Performing Provider: Scar Espinoza MD Administered by: NOMI Harrell on 07/26/23 11:48 Dose Route Admin Location Lot Number Expiration Date [facility] Team Driver 0.5 mL IM Right Deltoid [id number] 09/08/24 1141-9907-97 WYETH/PFIZER VIS Given Date VIS Provided VIS Publication Date 07/26/23 Single Vaccine 21 Eligibility Eligibility Date Funding Source Not VFC Eligible 07/26/23 Private tetanus-diphtheria toxoids-Td Performing Provider: Scar Espinoza MD Administered by: NOMI Harrell on 07/26/23 11:46 Dose Route Admin Location Lot Number Expiration Date [facility] Team Driver 0.5 mL IM Left Deltoid [id number] 03/25/24 [address]-7 [employer] VIS Given Date VIS Provided VIS Publication Date 07/26/23 Single Vaccine 21 Eligibility Eligibility Date Funding Source Not VFC Eligible 07/26/23 State funds Results Reviewed Results Reviewed: Laboratory Tests 02/03/23 07/25/23 07/25/23 08:46 10:50 10:50 WBC 5.3 Hgb 11.3 L Hct 35.1 L Plt Count 205 Sodium Potassium Creatinine Estimated GFR Fasting Glucose Calcium Iron 22 L TIBC 321 % Saturation 7 L AST ALT Triglycerides Cholesterol LDL Cholesterol, Calc HDL Cholesterol 25-OH Vitamin D Total TSH Ur Specific [place] 1.015 Urine Protein Negative Urine Glucose (UA) Negative Urine Blood Negative 07/25/23 10:50 WBC Hgb Hct Plt Count Sodium 138 Potassium 4.4 Creatinine 1.11 Estimated GFR > 60 Fasting Glucose 84 Calcium 9.4 Iron TIBC % Saturation AST 16 ALT 10 Triglycerides 107 Cholesterol 187 LDL Cholesterol, Calc 135 H HDL Cholesterol 31 L 25-OH Vitamin D Total 17.9 TSH 1.64 Ur Specific [place] Urine Protein Urine Glucose (UA) Urine Blood Assessment and Plan Assessment & Plan (1) Pure hypercholesterolemia: Code(s): E78.00 - Pure hypercholesterolemia, unspecified Plan: Results of his labs done yesterday reviewed and discussed with patient - cautioned that his cholesterol level has increased significantly from previous Patient states that he has been out of his Rx for about a week or so and needs this refilled VANESSA - Rx refill sent to pharmacy Reinforced low cholesterol diet; will start back on/continue Rosuvastatin 5 mg QD Will recheck his fasting lipids and labs again in 3 months for follow up (2) Benign essential hypertension: Code(s): I10 - Essential (primary) hypertension Plan: Reinforced low sodium diet - goal is systolic BP of 120 to 130 mm or less Continue Propranolol 10 mg BID (3) COPD (chronic obstructive pulmonary disease): Code(s): J44.9 - Chronic obstructive pulmonary disease, unspecified Qualifiers: COPD type: unspecified COPD Qualified Code(s): J44.9 - Chronic obstructive pulmonary disease, unspecified Plan: Currently appears stable Continue Combivent Respimat 20-100 mcg 1 inhalation QID (4) Gastritis: Comment: EGD in September 2021 revealed (+) gastric erosion and erythema Code(s): K29.70 - Gastritis, unspecified, without bleeding Qualifiers: Gastritis type: unspecified gastritis Chronicity: chronic Gastritis bleeding: without bleeding Qualified Code(s): K29.50 - Unspecified chronic gastritis without bleeding Plan: Continue Omeprazole 20 mg BID Follow up with GI as scheduled (5) Duodenal arteriovenous malformation: Comment: seen on EGD done in September 2021 - s/p ablation with APC Code(s): K31.819 - Angiodysplasia of stomach and duodenum without bleeding Plan: (+) Hx of GI bleed due to AVMs Has had no issues with GI bleeding lately Follow up with GI as scheduled (6) Iron deficiency anemia: Code(s): D50.9 - Iron deficiency anemia, unspecified Qualifiers: Iron deficiency anemia type: unspecified iron deficiency Qualified Code(s): D50.9 - Iron deficiency anemia, unspecified Plan: Is unable to tolerate oral iron tablets/supplements due to abdominal pain and severe constipation Has been receiving IV iron infusion when needed Follow up with hematology (Dr. Ventura) as scheduled (7) Vitamin D deficiency: Code(s): E55.9 - Vitamin D deficiency, unspecified Plan: Advised that his Vitamin D level was very low on his recent labs Will start him on Vitamin D3 2000 units QD (8) Smoker: Code(s): F17.200 - Nicotine dependence, unspecified, uncomplicated Plan: Counseled on smoking cessation Will refer to thoracic surgery for low dose CT lung cancer screening Plan He will also be given his Td booster and pneumovax-23 in the office today Is advised to try getting his flu shot at his local pharmacy as soon as he can, as we currently do not have the flu vaccine in the office yet; advised that he can also call back to find out when we have the vaccine and he can get it here when it is available Follow up in 3 months Orders: Orders Comprehensive [place]. Panel Fast 3 Months E78.00 - Pure hypercholesterolemia, unspecified Lipid Panel 3 Months E78.00 - Pure hypercholesterolemia, unspecified Vitamin D 25-OH Total 3 Months E55.9 - Vitamin D deficiency, unspecified Pneumococcal 20 Immunization Today Z23 - Encounter for immunization Td State Immunization Today Z23 - Encounter for immunization Vitamin B12 and Folate 3 Months E53.8 - Deficiency of other specified B group vitamins Complete Blood Count Auto Diff 3 Months I10 - Essential (primary) hypertension UA CC w/rflx Micro + Cult 3 Months R30.0 - Dysuria Referrals Thoracic Surgery Referral Z12.2 - Encounter for screening for malignant neoplasm of respiratory organs Medications: New cholecalciferol (vitamin D3) 50 mcg PO DAILY 90 caps 3RF 90 days E55.9 - Vitamin D deficiency, unspecified Changed From rosuvastatin 5 mg PO DAILY To rosuvastatin 5 mg PO DAILY 90 tabs 1RF 90 days Coding Level of Care Code Est Pt Level 4 (65493) Diagnoses Pure hypercholesterolemia E78.00 Benign essential hypertension I10 COPD (chronic obstructive pulmonary disease) J44.9 COPD type: unspecified COPD Gastritis K29.50 Gastritis type: unspecified gastritis Chronicity: chronic Gastritis bleeding: without bleeding Duodenal arteriovenous malformation K31.819 Iron deficiency anemia D50.9 Iron deficiency anemia type: unspecified iron deficiency Vitamin D deficiency E55.9 Smoker F17.200
[2023-07-26 10:46] VITALS: BP 110/78; PULSE 57; O2SAT 98; BMI 19.5
== END 2023-07-26 11:43 | disposition home or self-care (01) ==
PROVIDERS: PCP Internal Medicine; Visit Provider Internal Medicine
DX: I10 Essential (primary) hypertension (principal); J44.9 Chronic obstructive pulmonary disease, unspecified; K29.50 Unspecified chronic gastritis without bleeding; E55.9 Vitamin D deficiency, unspecified; Z23 Encounter for immunization; E78.00 Pure hypercholesterolemia, unspecified; K31.819 Angiodysplasia of stomach and duodenum without bleeding; D50.9 Iron deficiency anemia, unspecified; F17.200 Nicotine dependence, unspecified, uncomplicated
CPT/HCPCS: 90471; 90472; 90677; 90714; 99214

== ENCOUNTER 2023-09-22 12:31 | Outpatient (AMB) | payer OTHER, SELFPAY ==
--- NOTE | 2023-09-22 10:04 | MHC.OFFVIS ---
Intake Intake Visit Reasons: LDCT SD Allergies iron Adverse Reaction (Severe, Verified 07/26/23 11:21) abdominal pain and severe constipation acetaminophen [From TYLENOL] Adverse Reaction (Unknown, Verified 07/26/23 11:21) Liver problems HPI LDCT SD HPI Details Initial visit for this 67yo smoker with a 25+PYH. Patient has been smoking since age 14 for 53 years at 1/2ppd. . Denies marijuana use. Denies second hand smoke exposure. Denies exposure to chemicals or substances like asbestos. . Denies known family history of lung cancer. Denies personal history of cancers. . Denies chest CT in last year. Prior chest CT done 11/12/18 noted centrilobular emphysema, tree-in-bud appearance in RML, healing right 9th/10 rib fractures. No suspicious nodules. . Denies recent travel outside the [place]. Denies recent respiratory illness or recent hospitalization for respiratory issues. Denies testing positive for COVID. Admits receiving COVID Vaccine. x 3 . Denies fever, chills, new/worsening cough, hemoptysis, hoarseness or dysphagia. Denies significant chest pain, significant dyspnea or unintentional weight loss. Patient Lung Cancer Screening Questionnaire reviewed with patient by provider. . Shared Decision Making Completed. Patient meets criteria. Discussed in detail with patient, the risk vs benefit of LDCT screening. Patient consents to proceed with scan. Discussed smoking cessation. [facility] Medical History (Updated 09/22/23 @ 13:24 by Jackie Haq PA-C) Benign essential hypertension Pure hypercholesterolemia COPD (chronic obstructive pulmonary disease) Nicotine dependence, cigarettes, uncomplicated Iron deficiency anemia Vitamin D deficiency Duodenal arteriovenous malformation Gastritis Tubular adenoma of colon (~2020) Left inguinal pain Influenza vaccination given (~10/19/22) Surgical History (Updated 09/22/23 @ 13:21 by Jackie Haq PA-C) History of elbow surgery History of left inguinal hernia repair (~2009) History of esophagogastroduodenoscopy (EGD) (~2020) History of colonoscopy (~2020) Family History Sister HTN (hypertension) Social History (Updated 09/22/23 @ 13:24 by Jackie Haq PA-C) Household Members: [facility] Are you a primary career and transition teacher to a significant other at home: No Do you presently have visiting nurse or other home services: No Alcohol intake: former Patient Tobacco Use Status: Current everyday Tobacco user Tobacco use type: Cigarette Cigarette Packs Per Day: 0.5 Years Smoked: (onset 14yo, 1/2ppd x 53yrs, 25+PYH) e-Cigarette/Vaping Use: Never Used service: No Current occupational status: disabled Cognitive needs: No Hearing needs: No Vision needs: No Assessment & Plan Assessment & Plan (1) Nicotine dependence, cigarettes, uncomplicated: Comment: (current smoker - onset 14yo, 1/2ppd x 53yrs, 25+PYH) Code(s): F17.210 - Nicotine dependence, cigarettes, uncomplicated Plan: - SDM visit completed today in office. - Patient meets criteria for LDCT for lung cancer screening purposes and is asymptomatic. - Smoking cessation counseling offered. Patients can always call [phone]. - Will arrange for a LDCT scan of the chest for screening purposes at [facility]. - Risks, benefits, and alternatives were discussed in detail and the patient agrees to proceed. - Risks discussed include but are not limited to: radiation exposure, anxiety during testing and while awaiting results, false negatives, false positives and possibility of additional intervention such as further imaging or surgical procedures for benign disease. - Benefits are obviously detection of lung cancer at an early stage which can lead to improved outcomes. - Discussed the importance of screening program compliance with adherence to yearly LDCT scan as scheduled - or sooner interval scans for personalized screening regimen. - Discussed follow up plan. Our office will send a letter discussing results and if needed set up phone call and office visit based on CT findings. - Patient educated on results categorization and the management decisions for suspicious findings potentially found on the screening LDCT scan. Any patient with a Lung RADS score of 3 or 4 will be reviewed by a multidisciplinary team at [facility] to form a plan of action in regards to scan findings. - If further work up is warranted for a suspicious lung finding this will be followed by the Lung Cancer Screening program in conjunction with the Thoracic Surgery Department at [facility]. - A copy of the office note and LDCT will be sent to the patient's PCP - as well as documentation on any associated further plans of care. - Incidental findings on LDCT are the PCP's responsibility. These findings are indicated with an S finding on the LDCT Assessment. A note discussing the findings will be sent to the PCP who is then responsible for further management. - All questions answered.? Coding Level of Care Code Lung Cancer Screening [id number] Diagnoses Nicotine dependence, cigarettes, uncomplicated F17.210
== END 2023-09-22 14:42 | disposition home or self-care (01) ==
PROVIDERS: PCP Internal Medicine; Referring Provider Internal Medicine; Visit Provider Physician Assistant Medical
DX: F17.210 Nicotine dependence, cigarettes, uncomplicated (principal)
CPT/HCPCS: G0296

== ENCOUNTER 2023-09-22 13:23 | Outpatient (REF) | payer OTHER, SELFPAY ==
--- NOTE | ~2023-09-22 | CT_ITS ---
EXAMINATION: CT CHEST SCREENING CLINICAL INFORMATION: Current smoker. 53 pack year history. COMPARISON: Previous chest CT October 2018 and chest x-ray September 2019 TECHNIQUE: Multidetector volumetric CT imaging of the chest is performed without contrast using low dose technique. Additional 2D coronal and sagittal reformatted images and axial 3D maximum intensity projection (MIP) images are generated on the CT workstation. This CT examination was performed using dose optimization techniques as appropriate, variously including the following: *Automated exposure control *Adjustment of mA and/or kV according to patient size (this includes techniques or standardized protocols for targeted exams where dose is matched to indication/reason for exam; i.e. extremities or head) *Use of iterative reconstruction technique DLP: 40 mGy-cm FINDINGS: LUNGS: There is mild paraseptal emphysema. There is a 5 mm peripheral or subpleural nodule adjacent at the right lateral lung apex axial image 80 series 5. This is similar to 2018 exam. There are scattered areas of increased attenuation and increased markings throughout the lungs. Majority of these areas appear peripheral or subpleural.It is uncertain whether this could represent post infectious or inflammatory scarring, early interstitial lung disease or possibly airways disease. The lungs are otherwise clear. No bronchiectasis. No endobronchial or endotracheal lesion. MEDIASTINUM: Small partially calcified mediastinal lymph nodes similar to previous exam. No enlarged lymph nodes. Normal heart size. No pericardial effusion. Normal caliber thoracic aorta. CORONARY ARTERY CALCIFICATION: Mild PLEURA: No pleural effusion. AXILLA: No lymphadenopathy. UPPER ABDOMEN: Small liver calcification probably related to old granulomatous disease. Small right renal stone. OSSEOUS STRUCTURES: Unremarkable. CT/CT lung screening IMPRESSION: Mild emphysema. Stable 5 mm right upper lobe nodule from 2018. Scattered faint areas of increased markings and attenuation throughout the lungs, question postinfectious or inflammatory scarring, early interstitial lung disease or airways disease. ASSESSMENT: Lung-RADS category 2: Benign RECOMMENDATION: Annual low-dose chest CT follow-up in one year recommended
== END 2023-09-22 13:24 | disposition home or self-care (01) ==
LOC: HO.CT 13:23
PROVIDERS: PCP Internal Medicine; Visit Provider Physician Assistant Medical
DX: Z12.2 Encounter for screening for malignant neoplasm of respiratory organs (principal); F17.210 Nicotine dependence, cigarettes, uncomplicated
CPT/HCPCS: 71271; G0296

== ENCOUNTER 2023-11-09 10:03 | Outpatient (AMB) | payer OTHER, SELFPAY ==
[2023-11-09 10:19] VITALS: BP 126/84; PULSE 60; O2SAT 98; BMI 20.2
--- NOTE | 2023-11-09 10:19 | A.OFFPC_ITS ---
Vital Signs 11/09/23 10:19 Height 5 ft 5 in Weight 121 lb 2 oz BMI 20.2 BP 126/84 Blood Pressure Location Lt brachial Position Sitting Pulse 60 Pulse Source Pulse Oximeter Pulse Oximetry (%) 98 Oxygen Delivery Method Room Air Intake Visit Reasons: Annual Physical Info Print Press Operator Required: No Accompanied by: Self / Same As Patient Allergies iron Adverse Reaction (Severe, Verified 11/09/23 11:27) abdominal pain and severe constipation acetaminophen [From TYLENOL] Adverse Reaction (Unknown, Verified 11/09/23 11:27) Liver problems Medication List - Last Reconciled 11/09/23 by Scar Espinoza MD cholecalciferol (vitamin D3) 50 mcg PO DAILY 90 days cyanocobalamin (vitamin B-12) 1,000 mcg PO DAILY ipratropium-albuterol 20-100 mcg/actuation (Combivent Respimat) 1 puff inhalation QID PRN omeprazole 20 mg PO BID propranolol 10 mg PO BID rosuvastatin 5 mg PO DAILY 90 days Tobacco use date assessed: 11/09/23 Fall risk assessment: No Falls in past year Last assessed Fall Risk: 11/09/23 Dental Screening Dental Screen Date: 11/09/23 Did you have a dental visit in the last 12 months?: No Did you have a dental problem in the last 6 months where you did not have access to dental care?: No Was dental information given to patient?: No HPI Annual Physical HPI Details Patient comes in today for his annual physical examination States that he has been experiencing recurrent cramping pain in the toes of both his feet (but more commonly on the left foot) for a few months now and he has been having trouble sleeping at night because of his cramps Adds that he has also been experiencing urinary frequency, especially at night, for months now; he denies any pain or burning sensation on urination States that he feels okay otherwise He denies any headaches or dizziness Denies any chest pains, no shortness of breath No nausea / vomiting, no abdominal pain No change in bowel habits noted Had his last colonoscopy done a couple of years ago in [address] Acevedo - he had some tubular adenomas removed and was recommended to have a repeat colonoscopy done in 3 years (2023) Needs all of his Rx refilled PFSH Medical History Benign essential hypertension Pure hypercholesterolemia COPD (chronic obstructive pulmonary disease) Nicotine dependence, cigarettes, uncomplicated Iron deficiency anemia Vitamin D deficiency Duodenal arteriovenous malformation Gastritis Tubular adenoma of colon (~2020) Left inguinal pain Influenza vaccination given (~10/19/22) Surgical History History of elbow surgery History of left inguinal hernia repair (~2009) History of esophagogastroduodenoscopy (EGD) (~2020) History of colonoscopy (~2020) Family History Sister HTN (hypertension) Social History Household Members: Family [facility] Are you a primary college and career counselor to a significant other at home: No Do you presently have visiting nurse or other home services: No Alcohol intake: former Patient Tobacco Use Status: Current everyday Tobacco user Tobacco use type: Cigarette Cigarette Packs Per Day: 0.5 Years Smoked: (onset 14yo, 1/2ppd x 53yrs, 25+PYH) e-Cigarette/Vaping Use: Never Used service: No Current occupational status: disabled Cognitive needs: No Hearing needs: No Vision needs: No Questionnaire PHQ-9 Over the last 2 weeks, how often have you been bothered by any of the following problems? 1. Little interest or pleasure in doing things: not at all 2. Feeling down, depressed, or hopeless: not at all 3. Trouble falling or staying asleep, or sleeping too much: not at all 4. Feeling tired or having little energy: not at all 5. Poor appetite or overeating: not at all 6. Feeling bad about yourself - or that you are a failure or have let yourself or your family down: not at all 7. Trouble concentrating on things, such as reading the newspaper or watching television: not at all 8. Moving or speaking so slowly that other people could have noticed. Or the opposite - being so fidgety or restless that you have been moving around a lot more than usual: not at all 9. Thoughts that you would be better off or of hurting yourself in some way: not at all Total score: 0 Depression Screening Interpretation: Negative Depression Screening Done: Yes [id number] - PHQ-9 Billing: Yes Source: Developed by Drs. Abdirashid Nava, Cara Benson, Qamar Kan and colleagues, with an educational atif from [employer]. Thrive Questionnaire Date Thrive assessed: 11/09/23 I am a: Patient What is your living situation today?: I have a steady place to live Within the past 12 months, did the food you bought not last and you didn't have the money to get more?: Never true Within the past 12 months, did you worry whether your food would run out before you got money to buy more?: Never true Do you have trouble paying for medicines?: No Do you have trouble getting transportation to medical appointments?: No Do you have trouble paying your heating and electricity bill?: No Do you have trouble taking care of your child, family member or friend?: No Do you have trouble with day-to-day activities such as bathing, preparing meals, shopping, managing finances, etc.?: No Are you currently unemployed and looking for a job?: No Are you interested in more education?: No Please select the resources that you would like help with: None Currently or been in a relationship where the following occur: no concerns reported AUDIT C Alcohol Use Questionnaire (AUDIT-C) 1. How often do you have a drink containing alcohol?: Never 3. How often do you have six or more drinks on one occasion?: Never Total Score: 0 Score Reviewed/Action Taken: Yes CHACHO-7 AMB Questionnaire CHACHO-7 Date CHACHO - 7 assessed: 11/09/23 Feeling nervous, anxious, or on edge: 0 = Not at all Not being able to stop or control worryin = Not at all Worrying too much about different things: 0 = Not at all Trouble relaxin = Not at all Being so restless that it is hard to sit still: 0 = Not at all Becoming easily annoyed or irritable: 0 = Not at all Feeling afraid as if something awful might happen: 0 = Not at all Total CHACHO-7 score (0-4 normal; 5-9 mild; 10-14 moderate; 15-21 severe): 0 Source: Developed by Cara Garcia B.W. Marcelino, Qamar Kan and colleagues, with an educational atif from [employer]. Review of Systems Const Denies chills, Reports difficulty sleeping, Denies fatigue, Denies fever(s), Denies headache(s), Denies malaise and Denies weakness Eyes Denies blurry vision, Denies change in vision, Denies irritation and Denies itchy eyes ENT Denies dysphagia, Denies dizziness, Denies otalgia, Denies headache(s), Denies nasal congestion, Denies neck pain, Denies odynophagia and Denies sore throat Card Denies chest pain, Denies rapid heart rate, Denies irregular heart rhythm, Denies palpitations and Denies dyspnea Resp Denies chest congestion, Denies cough, Denies dyspnea and Denies wheezing GI Denies abdominal pain, Denies bloating, Denies constipation, Denies dysphagia, Denies heartburn, Denies diarrhea, Denies nausea, Denies odynophagia and Denies vomiting Denies hematuria, Denies difficulty urinating, Denies dysuria, Reports nocturia, Reports urinary frequency and Denies urinary urgency Musc Denies back pain, Denies arthralgias, Denies joint swelling, Reports muscle cramps (in toes of both feet at night, worse on left side), Denies muscle weakness and Denies neck pain Skin/Breast Denies change in pigmentation, Denies lesions, Denies rash and Denies unusual bruising Neuro Denies dizziness, Denies headache(s), Denies paresthesias and Denies weakness Endo Denies fatigue and Denies palpitations Aller/Immun Denies itchy eyes and Denies wheezing Physical exam (Primary Care) Vital Signs: Last Vital Signs Pulse 60 11/09/23 10:19 BP 126/84 11/09/23 10:19 Pulse Ox 98 11/09/23 10:19 Oxygen Delivery Method Room Air 11/09/23 10:19 BMI result Body Mass Index 20.2 Tobacco/Smoking Status: Tobacco use Status Tobacco use date assessed 11/09/23 11/09/23 10:23 Patient Tobacco Use Status Current everyday Tobacco 11/09/23 10:23 Tobacco use type Cigarette 11/09/23 10:23 e-Cigarette/Vaping Use Never Used 11/09/23 10:23 PHQ-9: PHQ-9 Score PHQ-9: Total score 0 11/09/23 11:29 Depression Screening Interpretation: Negative Thrive Assessment: Date of Thrive Assessment Date Thrive assessed 11/09/23 11/09/23 10:23 Currently or been in a relationship where the following occur: no concerns reported Const General: no acute distress, alert and awake Orientation/consciousness: patient oriented x3 HENMT Head: Yes normocephalic and Yes atraumatic Ears: external ears normal, TM's normal bilaterally and EAC's normal General nose exam: No nasal discharge present Face and sinus: Yes normal facial exam and Yes sinuses nontender Teeth and gingiva: dentition normal Throat: Yes posterior oropharynx normal and Yes tonsils normal (no TP congestion) Eyes Eyelids: Yes eyelids normal Conjunctivae: conjunctivae normal Pupils: Equal, round and reactive pupils present EOM: EOMs intact bilaterally Neck Neck: Yes no lymphadenopathy and Yes supple Thyroid: Thyroid normal Resp Auscultation: clear to auscultation bilaterally, no rales and no wheezes Cardio Rate: regular rate Rhythm: regular rhythm Heart sounds: no murmurs GI Palpation (GI): Soft to palpation, nontender and No hepatosplenomegaly present Auscultation: normal bowel sounds General: Yes no CVA tenderness Back/Spine/Pelvis Back: no CVA tenderness Thoracic/Lumbar Spine: thoracic and lumbar spine normal to inspection Skin Lesions: no lesions Rashes: no rashes Neuro General: patient oriented x3, moves all extremities, no focal motor deficits and CN's II-XI intact bilaterally Cranial nerves: Yes Equal, round and reactive pupils present Cognition (Neuro): normal cognition Gait exam (Neuro): Normal gait present Extrem General: Yes no clubbing, cyanosis or edema Assessment and Plan Assessment & Plan (1) Annual physical exam: Code(s): Z00.00 - Encounter for general adult medical examination without abnormal findings Plan: Check labs Patient is up-to-date with his cancer screenings; will be due for repeat colonoscopy in the fall of 2023 (2) Leg cramps: Code(s): R25.2 - Cramp and spasm Plan: Will send patient for some labs VANESSA for further evaluation Advised that certain conditions, like anemia, are sometimes associated with nocturnal leg cramping Will start him for now on Baclofen 20 mg Q HS PRN (3) Iron deficiency anemia: Code(s): D50.9 - Iron deficiency anemia, unspecified Qualifiers: Iron deficiency anemia type: unspecified iron deficiency Qualified Code(s): D50.9 - Iron deficiency anemia, unspecified Plan: He has been receiving IV iron infusion when needed Is unable to tolerate oral iron tablets/supplements due to abdominal pain and severe constipation Follow up with hematology (Dr. Ventura) as scheduled (4) Gastritis: Comment: (EGD in September 2021 revealed (+) gastric erosion and erythema) Code(s): K29.70 - Gastritis, unspecified, without bleeding Qualifiers: Gastritis type: unspecified gastritis Chronicity: chronic Gastritis bleeding: without bleeding Qualified Code(s): K29.50 - Unspecified chronic gastritis without bleeding Plan: Continue Omeprazole 20 mg BID Follow up with GI as scheduled (5) Duodenal arteriovenous malformation: Comment: (seen on EGD done 09/2021 - s/p ablation with APC) Code(s): K31.819 - Angiodysplasia of stomach and duodenum without bleeding Plan: (+) Hx of GI bleed due to AVMs Has had no issues with GI bleeding lately Follow up with GI as scheduled (6) Pure hypercholesterolemia: Code(s): E78.00 - Pure hypercholesterolemia, unspecified Plan: Will recheck his fasting lipids VANESSA Reinforced low cholesterol diet Continue Rosuvastatin 5 mg QD Will recheck his fasting lipids and labs again in 3 months for follow up (7) Benign essential hypertension: Code(s): I10 - Essential (primary) hypertension Plan: Reinforced low sodium diet - goal is systolic BP of 120 to 130 mm or less Continue Propranolol 10 mg BID (8) COPD (chronic obstructive pulmonary disease): Code(s): J44.9 - Chronic obstructive pulmonary disease, unspecified Qualifiers: COPD type: unspecified COPD Qualified Code(s): J44.9 - Chronic obstructive pulmonary disease, unspecified Plan: Currently appears stable Continue Combivent Respimat 20-100 mcg 1 inhalation QID (9) Vitamin D deficiency: Code(s): E55.9 - Vitamin D deficiency, unspecified Plan: Continue Vitamin D3 2000 units QD Will recheck his Vitamin D level VANESSA for follow up (10) Smoker: Code(s): F17.200 - Nicotine dependence, unspecified, uncomplicated Plan: Counseled on smoking cessation Low dose lung CT done last month (for lung cancer screening) came out normal/negative Plan Follow up in 3 months Orders: Orders IRON PROFILE 11/09/23 D50.9 - Iron deficiency anemia, unspecified Prostate Specific Antigen 11/09/23 N40.0 - Benign prostatic hyperplasia without lower urinary tract symptoms Comprehensive [place]. Panel Fast 3 Months E78.00 - Pure hypercholesterolemia, unspecified UA CC w/rflx Micro + Cult 3 Months R30.0 - Dysuria Lipid Panel 3 Months E78.00 - Pure hypercholesterolemia, unspecified Vitamin D 25-OH Total 3 Months E55.9 - Vitamin D deficiency, unspecified Medications: New baclofen 20 mg PO BEDTIME 30 days 30 tabs 2RF muscle cramps ipratropium-albuterol 20-100 mcg/actuation (Combivent Respimat) 1 puff inhalation QID PRN 4 grams 5RF Wheezing Refilled rosuvastatin 5 mg PO DAILY 90 days 90 tabs 1RF propranolol 10 mg PO BID 180 tabs 1RF cyanocobalamin (vitamin B-12) 1,000 mcg PO DAILY 90 tabs 1RF cholecalciferol (vitamin D3) 50 mcg PO DAILY 90 days 90 caps 3RF E55.9 - Vitamin D deficiency, unspecified omeprazole 20 mg PO BID 180 caps 1RF K29.50 - Unspecified chronic gastritis without bleeding Coding Level of Care Code Est Pt Prev Care >65y(74097) Diagnoses Annual physical exam Z00.00 Leg cramps R25.2 Iron deficiency anemia, unspecified iron deficiency anemia type D50.9 Iron deficiency anemia type: unspecified iron deficiency Chronic gastritis without bleeding, unspecified gastritis type K29.50 Gastritis type: unspecified gastritis Chronicity: chronic Gastritis bleeding: without bleeding Duodenal arteriovenous malformation K31.819 Pure hypercholesterolemia E78.00 Benign essential hypertension I10 Chronic obstructive pulmonary disease, unspecified COPD type J44.9 COPD type: unspecified COPD Vitamin D deficiency E55.9 Smoker F17.200
== END 2023-11-09 11:37 | disposition home or self-care (01) ==
PROVIDERS: PCP Internal Medicine; Visit Provider Internal Medicine
DX: Z00.00 Encounter for general adult medical examination without abnormal findings (principal); J44.9 Chronic obstructive pulmonary disease, unspecified; R25.2 Cramp and spasm; F17.210 Nicotine dependence, cigarettes, uncomplicated; D50.9 Iron deficiency anemia, unspecified; K29.50 Unspecified chronic gastritis without bleeding; K31.819 Angiodysplasia of stomach and duodenum without bleeding; E78.00 Pure hypercholesterolemia, unspecified; I10 Essential (primary) hypertension; E55.9 Vitamin D deficiency, unspecified
CPT/HCPCS: 99397

== ENCOUNTER 2023-11-09 11:41 | Outpatient (REF) | payer OTHER, SELFPAY ==
[2023-11-09 12:24] LABS: MANUAL DIFF FLAG NO
[2023-11-09 13:42] LABS: Basophils Absolute Auto 0.1 X10*3/uL (0.0-0.2); Basophils Percent Auto 0.9 % (0-2); Eosinophils Absolute Auto 0.1 X10*3/uL (0.0-0.4); Eosinophils Percent Auto 1.7 % (0-4); Hematocrit 31.7 % (42.0-52.0); Hemoglobin 9.8 g/dl (14.0-18.0); Imm Gran Abs Auto 0.02 X10*3/uL (0.00-0.03); Imm Gran Pct Auto 0.3 % (0.0-0.4); Lymphocytes Absolute Auto 2.1 X10*3/uL (1.2-4.9); Lymphocytes Percent Auto 30.3 % (20-40); Mean Corpuscular HGB Conc 30.9 g/dl (31.0-36.0); Mean Corpuscular Hemoglobin 23.7 pg (27.0-33.0); Mean Corpuscular Volume 76.8 fL (80.0-98.0); Mean Platelet Volume 11.3 fL (9.4-12.4); Monocytes Absolute Auto 0.9 X10*3/uL (0.1-1.2); Monocytes Percent Auto 12.6 % (2-11); Neutrophils Absolute Auto 3.8 x10*3/uL (2.0-8.3); Neutrophils Percent Auto 54.2 % (45-73); Platelet Count 245 X10*3/uL (160-400); Red Blood Count 4.13 X10*6/uL (4.60-5.80); Red Cell Distribution Width 14.4 % (11.0-16.0)
[2023-11-09 14:18] LABS: Alanine Aminotransferase 13 U/L (0-40); Albumin Level 4.5 g/dL (3.5-5.0); Alkaline Phosphatase 63 U/L (39-117); Anion Gap 12 (12-20); Aspartate Amino Transferase 20 U/L (5-37); Bilirubin Total 0.4 mg/dL (0.0-1.0); Blood Urea Nitrogen 5 mg/dL (9-16); Calcium 9.5 mg/dL (8.4-10.2); Carbon Dioxide 24 mmol/L (22-29); Chloride 108 mmol/L (96-108); Cholesterol 120 mg/dL (<200); Estimated Glomerular Filt Rate > 60; Glucose Fasting 88 mg/dL (60-99); HDL Cholesterol 38 mg/dL (>40); Iron 24 mcg/dL (45-160); LDL Cholesterol Calculated 65 mg/dL (<100); Percent Iron Saturation 7 % (15-50); Potassium 4.7 mmol/L (3.3-5.1); Sodium 139 mmol/L (135-145); Total Iron Binding Capacity 330 mcg/dL (228-428); Total Protein 7.7 g/dL (6.5-8.0); Triglycerides 87 mg/dL (<150); Unsaturated Iron Binding 306 ug/dL
[2023-11-09 14:39] LABS: Vitamin D 25-OH Total 9.2 ng/mL (>30)
[2023-11-09 15:05] LABS: Prostate Specific Antigen 1.37 ng/mL (<0.05-4.0); Vitamin B12 1875 pg/mL (200-900)
[2023-11-09 15:24] LABS: Appearance Urine Clear; Color Urine Yellow; Glucose Urine UA Negative (Negative); Leukocyte Esterase Urine Negative (Negative); Nitrite Urine Negative (Negative); PH 7.5 (5.0-9.0); Specific Gravity - Urine <= 1.005 (1.005-1.025); Urine Blood Negative (Negative); Urine Ketones Negative (Negative); Urine Protein Negative (Neg-Trace)
== END 2023-11-09 11:42 | disposition home or self-care (01) ==
LOC: HO.LAB 11:41
PROVIDERS: PCP Internal Medicine; Visit Provider Internal Medicine
DX: Z12.5 Encounter for screening for malignant neoplasm of prostate (principal); R30.0 Dysuria; D50.9 Iron deficiency anemia, unspecified; N40.0 Benign prostatic hyperplasia without lower urinary tract symptoms; E55.9 Vitamin D deficiency, unspecified; I10 Essential (primary) hypertension; E53.8 Deficiency of other specified B group vitamins; E78.00 Pure hypercholesterolemia, unspecified
CPT/HCPCS: 36415; 80053; 80061; 81003; 82306; 82607; 82746; 83540; 84153; 85025

== ENCOUNTER 2024-01-12 08:30 | Outpatient (REF) | payer OTHER, SELFPAY | END 2024-01-12 08:31 | disposition home or self-care (01) | LOC: HO.MDS 08:30 | PROVIDERS: Visit Provider Internal Medicine | DX: D50.9 Iron deficiency anemia, unspecified (principal) | CPT/HCPCS: 96365; J1756 ==

== ENCOUNTER 2024-01-16 07:36 | Outpatient (REF) | payer OTHER, SELFPAY ==
[2024-01-16 07:54] VITALS: BP 129/63; PULSE 62; RESP 18; TEMP 36.6; O2SAT 100
[2024-01-16 07:56] VITALS: BMI 42.9
[2024-01-16] MEDS: Iron Sucrose Complex 200 MG in 0.9 % Sodium Chloride 100 ML 440 MG IV (08:08)
== END 2024-01-16 07:37 | disposition home or self-care (01) ==
LOC: HO.MDS 07:36
PROVIDERS: Visit Provider Internal Medicine
DX: D50.9 Iron deficiency anemia, unspecified (principal)
CPT/HCPCS: 96374; J1756

== ENCOUNTER 2024-01-23 07:47 | Outpatient (REF) | payer OTHER, SELFPAY ==
[2024-01-23 07:55] VITALS: BP 144/63; PULSE 64; RESP 18; TEMP 36.4
[2024-01-23] MEDS: Iron Sucrose Complex 200 MG in 0.9 % Sodium Chloride 100 ML 440 MG IV (08:03)
== END 2024-01-23 07:48 | disposition home or self-care (01) ==
LOC: HO.MDS 07:47
PROVIDERS: Visit Provider Internal Medicine
DX: D50.9 Iron deficiency anemia, unspecified (principal)
CPT/HCPCS: 96365; J1756

== ENCOUNTER 2024-01-30 07:41 | Outpatient (REF) | payer OTHER, SELFPAY ==
[2024-01-30 07:57] VITALS: BP 131/63; PULSE 57; RESP 18; TEMP 36.8; O2SAT 100
[2024-01-30] MEDS: Iron Sucrose Complex 200 MG in 0.9 % Sodium Chloride 100 ML 440 MG IV (08:04)
== END 2024-01-30 07:42 | disposition home or self-care (01) ==
LOC: HO.MDS 07:41
PROVIDERS: Visit Provider Internal Medicine
DX: D50.9 Iron deficiency anemia, unspecified (principal)
CPT/HCPCS: 96365; J1756

== ENCOUNTER 2024-02-06 07:46 | Outpatient (REF) | payer OTHER, SELFPAY ==
[2024-02-06 07:49] VITALS: BP 131/54; PULSE 57; RESP 16; TEMP 36.2; O2SAT 100
[2024-02-06] MEDS: Iron Sucrose Complex 200 MG in 0.9 % Sodium Chloride 100 ML 440 MG IV (08:01)
== END 2024-02-06 07:47 | disposition home or self-care (01) ==
LOC: HO.MDS 07:46
PROVIDERS: Visit Provider Internal Medicine
DX: D50.9 Iron deficiency anemia, unspecified (principal)
CPT/HCPCS: 96374; J1756

== ENCOUNTER 2024-05-01 08:33 | Outpatient (AMB) | payer OTHER, SELFPAY ==
[2024-05-01 08:36] VITALS: BP 112/62; PULSE 54; O2SAT 97; BMI 19.5
--- NOTE | 2024-05-01 08:36 | A.OFFPC_ITS ---
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 Allergies iron Adverse Reaction (Severe, Verified 05/01/24 09:48) abdominal pain and severe constipation acetaminophen [From TYLENOL] Adverse Reaction (Unknown, Verified 05/01/24 09:48) Liver problems Medication List - Last Reconciled 05/01/24 by Scar Espinoza MD baclofen 20 mg PO BEDTIME 30 days cholecalciferol (vitamin D3) 50 mcg PO DAILY 90 days cyanocobalamin (vitamin B-12) 1,000 mcg PO DAILY ipratropium-albuterol 20-100 mcg/actuation (Combivent Respimat) 1 puff inhalation QID PRN omeprazole 20 mg PO BID propranolol 10 mg PO BID rosuvastatin 5 mg PO DAILY 90 days Tobacco use date assessed: 05/01/24 Fall risk assessment: No Falls in past year Last assessed Fall Risk: 05/01/24 Dental Screening Dental Screen Date: 05/01/24 Did you have a dental visit in the last 12 months?: No Did you have a dental problem in the last 6 months where you did not have access to dental care?: No HPI 3 month follow up - see comments HPI Details Patient comes in today for his follow up visit States that he continues to experience frequent and recurrent bilateral leg and feet cramping States that his Baclofen Q HS helps with his symptoms temporarily Relates that he feels okay otherwise Is currently receiving IV iron infusion through Dr. Ventura and his anemia has been improving - he cannot tolerate oral iron supplements as they cause abdominal pain and severe constipation for him He denies any headaches or dizziness Denies any chest pains, no SOB No nausea/vomiting, no abdominal pain No change in bowel habits noted [facility] Medical History (Updated 05/01/24 @ 10:01 by Scar Espinoza MD) Benign essential hypertension Pure hypercholesterolemia COPD (chronic obstructive pulmonary disease) Nicotine dependence, cigarettes, uncomplicated Iron deficiency anemia Vitamin D deficiency Duodenal arteriovenous malformation Gastritis Tubular adenoma of colon (~2020) Left inguinal pain Influenza vaccination given (~10/19/22) Surgical History History of elbow surgery History of left inguinal hernia repair (~2009) History of esophagogastroduodenoscopy (EGD) (~2020) History of colonoscopy (~2020) Family History Sister HTN (hypertension) Social History Household Members: Family Housing: Condominium Are you a primary personal care assistant to a significant other at home: No Do you presently have visiting nurse or other home services: No Alcohol intake: former Patient Tobacco Use Status: Current everyday Tobacco user Tobacco use type: Cigarette Cigarette Packs Per Day: 0.5 Years Smoked: (onset 14yo, 1/2ppd x 53yrs, 25+PYH) e-Cigarette/Vaping Use: Never Used service: No Current occupational status: disabled Cognitive needs: No Hearing needs: No Vision needs: No Questionnaire PHQ-9 Over the last 2 weeks, how often have you been bothered by any of the following problems? 1. Little interest or pleasure in doing things: not at all 2. Feeling down, depressed, or hopeless: not at all 3. Trouble falling or staying asleep, or sleeping too much: not at all 4. Feeling tired or having little energy: not at all 5. Poor appetite or overeating: not at all 6. Feeling bad about yourself - or that you are a failure or have let yourself or your family down: not at all 7. Trouble concentrating on things, such as reading the newspaper or watching television: not at all 8. Moving or speaking so slowly that other people could have noticed. Or the opposite - being so fidgety or restless that you have been moving around a lot more than usual: not at all 9. Thoughts that you would be better off or of hurting yourself in some way: not at all Total score: 0 Depression Screening Interpretation: Negative Depression Screening Done: Yes 14675 - PHQ-9 Billing: Yes Source: Developed by Drs. Abdirashid Nava, Cara Benson, Qamar Kan and colleagues, with an educational atif from [employer]. Thrive Questionnaire Date Thrive assessed: 05/01/24 I am a: Patient What is your living situation today?: I have a steady place to live Within the past 12 months, did the food you bought not last and you didn't have the money to get more?: Never true Within the past 12 months, did you worry whether your food would run out before you got money to buy more?: Never true Do you have trouble paying for medicines?: No Do you have trouble getting transportation to medical appointments?: No Do you have trouble paying your heating and electricity bill?: No Do you have trouble taking care of your child, family member or friend?: No Do you have trouble with day-to-day activities such as bathing, preparing meals, shopping, managing finances, etc.?: No Are you currently unemployed and looking for a job?: No Are you interested in more education?: No Please select the resources that you would like help with: None Currently or been in a relationship where the following occur: no concerns reported THRIVE Score: 0 AUDIT C Alcohol Use Questionnaire (AUDIT-C) 1. How often do you have a drink containing alcohol?: Never 3. How often do you have six or more drinks on one occasion?: Never Total Score: 0 Score Reviewed/Action Taken: Yes CHACHO-7 AMB Questionnaire CHACHO-7 Date CHACHO - 7 assessed: 05/01/24 Feeling nervous, anxious, or on edge: 0 = Not at all Not being able to stop or control worryin = Not at all Worrying too much about different things: 0 = Not at all Trouble relaxin = Not at all Being so restless that it is hard to sit still: 0 = Not at all Becoming easily annoyed or irritable: 0 = Not at all Feeling afraid as if something awful might happen: 0 = Not at all Total CHACHO-7 score (0-4 normal; 5-9 mild; 10-14 moderate; 15-21 severe): 0 Source: Developed by Drs. Abdirashid Nava, Cara Benson, Qamar Kan and colleagues, with an educational atif from [employer]. Review of Systems Const Denies chills, Reports difficulty sleeping, Denies fatigue, Denies fever(s) and Denies headache(s) ENT Denies dysphagia, Denies dizziness, Denies otalgia, Denies headache(s), Denies neck pain, Denies odynophagia and Denies sore throat Card Denies chest pain, Denies irregular heart rhythm, Denies palpitations and Denies dyspnea Resp Denies cough, Denies dyspnea and Denies wheezing GI Denies abdominal pain, Denies constipation, Denies dysphagia, Denies heartburn, Denies diarrhea, Denies nausea, Denies odynophagia and Denies vomiting Denies difficulty urinating, Denies dysuria, Reports nocturia and Reports urinary frequency Musc Denies back pain, Denies arthralgias, Reports muscle cramps (in both legs but especially in toes of both feet, worse at night) and Denies neck pain Skin/Breast Denies rash Neuro Denies dizziness, Denies headache(s) and Denies paresthesias Endo Denies fatigue and Denies palpitations Aller/Immun Denies wheezing Physical exam (Primary Care) Vital Signs: Last Vital Signs Pulse 54 05/01/24 08:36 BP 112/62 05/01/24 08:36 Pulse Ox 97 05/01/24 08:36 Oxygen Delivery Method Room Air 05/01/24 08:36 BMI result Body Mass Index 19.5 Tobacco/Smoking Status: Tobacco use Status Tobacco use date assessed 05/01/24 05/01/24 08:37 Patient Tobacco Use Status Current everyday Tobacco 05/01/24 08:37 Tobacco use type Cigarette 05/01/24 08:37 e-Cigarette/Vaping Use Never Used 05/01/24 08:37 PHQ-9: PHQ-9 Score PHQ-9: Total score 0 05/01/24 09:16 Depression Screening Interpretation: Negative Thrive Assessment: Date of Thrive Assessment Date Thrive assessed 05/01/24 05/01/24 08:37 Currently or been in a relationship where the following occur: no concerns reported Const General: no acute distress and alert HENMT Ears: TM's normal bilaterally and EAC's normal Throat: Yes posterior oropharynx normal and Yes tonsils normal (no TP congestion) Neck Neck: Yes no lymphadenopathy and Yes supple Thyroid: Thyroid normal Resp Auscultation: clear to auscultation bilaterally, no rales and no wheezes Cardio Rate: regular rate Rhythm: regular rhythm Heart sounds: no murmurs GI Palpation (GI): Soft to palpation and nontender Auscultation: normal bowel sounds General: Yes no CVA tenderness Back/Spine/Pelvis Back: no CVA tenderness Skin Rashes: no rashes Extrem General: Yes no clubbing, cyanosis or edema Assessment and Plan Assessment & Plan (1) Bilateral leg cramps: Code(s): R25.2 - Cramp and spasm Plan: Continue Baclofen 20 mg Q HS for now Will send patient for some labs VANESSA for further evaluation, including serum electrolytes and magnesium level Is advised that we will check back with him with further recommendations or Rx once his lab results are available and we have more information on what may be causing his issues (2) Iron deficiency anemia: Code(s): D50.9 - Iron deficiency anemia, unspecified Qualifiers: Iron deficiency anemia type: unspecified iron deficiency Qualified Code(s): D50.9 - Iron deficiency anemia, unspecified Plan: Improving - he has been receiving IV iron infusion when needed as he is unable to tolerate oral iron tablets/supplements due to abdominal pain and severe constipation Follow up with hematology (Dr. Ventura) as scheduled (3) Gastritis: Comment: (EGD in September 2021 revealed (+) gastric erosion and erythema) Code(s): K29.70 - Gastritis, unspecified, without bleeding Qualifiers: Gastritis type: unspecified gastritis Chronicity: chronic Gastritis bleeding: without bleeding Qualified Code(s): K29.50 - Unspecified chronic gastritis without bleeding Plan: Continue Omeprazole 20 mg BID Follow up with GI as scheduled (4) Duodenal arteriovenous malformation: Comment: (seen on EGD done 09/2021 - s/p ablation with APC) Code(s): K31.819 - Angiodysplasia of stomach and duodenum without bleeding Plan: (+) Hx of GI bleed due to AVMs He has had no issues with GI bleeding for a few months now Follow up with GI as scheduled (5) Pure hypercholesterolemia: Code(s): E78.00 - Pure hypercholesterolemia, unspecified Plan: Reinforced low cholesterol diet Continue Rosuvastatin 5 mg QD Will recheck his fasting lipids and labs in 3 months for follow up (6) Benign essential hypertension: Code(s): I10 - Essential (primary) hypertension Plan: Reinforced low sodium diet - goal is systolic BP of 120 to 130 mm or less Continue Propranolol 10 mg BID although his Propranolol was initially prescribed more for his liver than his BP (7) COPD (chronic obstructive pulmonary disease): Comment: CT lung (screening) in 09/2023 revealed (+) findings of mild emphysema Code(s): J44.9 - Chronic obstructive pulmonary disease, unspecified Qualifiers: COPD type: unspecified COPD Qualified Code(s): J44.9 - Chronic obstructive pulmonary disease, unspecified Plan: Currently appears stable CT lung scan in September 2023 revealed (+) findings of mild emphysema Continue Combivent Respimat 20-100 mcg 1 inhalation QID (8) Vitamin D deficiency: Code(s): E55.9 - Vitamin D deficiency, unspecified Plan: Continue Vitamin D3 2000 units QD Will recheck his Vitamin D level in 3 months for follow up (9) Smoker: Code(s): F17.200 - Nicotine dependence, unspecified, uncomplicated Plan: Counseled on smoking cessation Low dose lung CT done in September 2023 (for lung cancer screening) came out negative for malignancy Plan Follow up in 3 months Orders: Orders Magnesium Today E83.42 - Hypomagnesemia, M79.10 - Myalgia, unspecified site, R25.2 - Cramp and spasm MORE Reflex Titer and Pattern Today M79.10 - Myalgia, unspecified site, R25.2 - Cramp and spasm Comprehensive [place]. Panel Fast 3 Months E78.00 - Pure hypercholesterolemia, unspecified C Reactive Protein Today R25.2 - Cramp and spasm Comprehensive Met. Panel Today M79.10 - Myalgia, unspecified site, R25.2 - Cramp and spasm Erythrocyte Sedimentation Rate Today M79.10 - Myalgia, unspecified site, R25.2 - Cramp and spasm CK, Total+Isoenzymes, Serum Today M79.10 - Myalgia, unspecified site, R25.2 - Cramp and spasm Complete Blood Count Auto Diff 3 Months D64.9 - Anemia, unspecified Lipid Panel 3 Months E78.00 - Pure hypercholesterolemia, unspecified Coding Level of Care Code Est Pt Level 4 (29482) Complex EM visit Add On [id number] Diagnoses Bilateral leg cramps R25.2 Iron deficiency anemia, unspecified iron deficiency anemia type D50.9 Iron deficiency anemia type: unspecified iron deficiency Chronic gastritis without bleeding, unspecified gastritis type K29.50 Gastritis type: unspecified gastritis Chronicity: chronic Gastritis bleeding: without bleeding Duodenal arteriovenous malformation K31.819 Pure hypercholesterolemia E78.00 Benign essential hypertension I10 Chronic obstructive pulmonary disease, unspecified COPD type J44.9 COPD type: unspecified COPD Vitamin D deficiency E55.9 Smoker F17.200
== END 2024-05-01 09:57 | disposition home or self-care (01) ==
PROVIDERS: PCP Internal Medicine; Visit Provider Internal Medicine
DX: J44.9 Chronic obstructive pulmonary disease, unspecified (principal); R25.2 Cramp and spasm; D50.9 Iron deficiency anemia, unspecified; K29.50 Unspecified chronic gastritis without bleeding; K31.819 Angiodysplasia of stomach and duodenum without bleeding; E78.00 Pure hypercholesterolemia, unspecified; I10 Essential (primary) hypertension; E55.9 Vitamin D deficiency, unspecified; F17.200 Nicotine dependence, unspecified, uncomplicated
CPT/HCPCS: 99214; G2211

== ENCOUNTER 2024-05-01 10:00 | Outpatient (REF) | payer OTHER, SELFPAY ==
[2024-05-01 11:31] LABS: Alanine Aminotransferase 12 U/L (0-40); Albumin Level 4.2 g/dL (3.5-5.0); Alkaline Phosphatase 63 U/L (39-117); Anion Gap 11 (12-20); Aspartate Amino Transferase 13 U/L (5-37); Bilirubin Total 0.3 mg/dL (0.0-1.0); Blood Urea Nitrogen 5 mg/dL (9-16); C Reactive Protein < 0.10 mg/dL (< or = 0.50); Calcium 9.8 mg/dL (8.4-10.2); Carbon Dioxide 27 mmol/L (22-29); Chloride 106 mmol/L (96-108); Cholesterol 113 mg/dL (<200); Estimated Glomerular Filt Rate > 60; Glucose Fasting 71 mg/dL (60-99); Glucose Random 71 mg/dL (60-115); HDL Cholesterol 33 mg/dL (>40); LDL Cholesterol Calculated 65 mg/dL (<100); Magnesium 2.2 mg/dL (1.6-2.6); Sodium 140 mmol/L (135-145); Total Protein 7.1 g/dL (6.5-8.0); Triglycerides 77 mg/dL (<150)
[2024-05-01 11:47] LABS: Vitamin D 25-OH Total 52.7 ng/mL (>30)
[2024-05-01 11:50] LABS: Erythrocyte Sedimentation Rate 23 MM/HR (0-15)
[2024-05-05 17:59] LABS: CK-BB None Detected (None Detected); CK-MB 0 % (<5); CK-MM 100 % (95-100); Creatine Kinase,Total,Serum 65 U/L (44-196)
[2024-05-07 13:24] LABS: Anti Nuclear Antibody Pattern Nuclear, Homogeneous; Anti Nuclear Antibody Screen POSITIVE (NEGATIVE); Anti Nuclear Antibody Titer 1:40 titer
== END 2024-05-01 10:01 | disposition home or self-care (01) ==
LOC: HO.LAB 10:00
PROVIDERS: PCP Internal Medicine; Visit Provider Internal Medicine
DX: M79.10 Myalgia, unspecified site (principal); R25.2 Cramp and spasm; E83.42 Hypomagnesemia; E78.00 Pure hypercholesterolemia, unspecified
CPT/HCPCS: 36415; 80053; 80061; 82306; 82552; 83735; 85652; 86038; 86039; 86140

== ENCOUNTER 2024-08-01 09:37 | Outpatient (REF) | payer OTHER, SELFPAY ==
[2024-08-01 10:01] LABS: MANUAL DIFF FLAG NO
[2024-08-01 11:04] LABS: Appearance Urine Clear; Color Urine Yellow; Glucose Urine UA Negative (Negative); Leukocyte Esterase Urine Negative (Negative); Nitrite Urine Negative (Negative); PH 6.5 (5.0-9.0); Specific Gravity - Urine <= 1.005 (1.005-1.025); Urine Blood Negative (Negative); Urine Ketones Negative (Negative); Urine Protein Negative (Neg-Trace)
[2024-08-01 11:21] LABS: Basophils Absolute Auto 0.1 X10*3/uL (0.0-0.2); Basophils Percent Auto 1.1 % (0-2); Eosinophils Absolute Auto 0.1 X10*3/uL (0.0-0.4); Eosinophils Percent Auto 1.9 % (0-4); Hematocrit 30.9 % (42.0-52.0); Hemoglobin 9.6 g/dl (14.0-18.0); Imm Gran Abs Auto 0.01 X10*3/uL (0.00-0.03); Imm Gran Pct Auto 0.2 % (0.0-0.4); Lymphocytes Absolute Auto 1.5 X10*3/uL (1.2-4.9); Lymphocytes Percent Auto 26.7 % (20-40); Mean Corpuscular HGB Conc 31.1 g/dl (31.0-36.0); Mean Corpuscular Hemoglobin 23.4 pg (27.0-33.0); Mean Corpuscular Volume 75.2 fL (80.0-98.0); Mean Platelet Volume 11.3 fL (9.4-12.4); Monocytes Absolute Auto 0.7 X10*3/uL (0.1-1.2); Monocytes Percent Auto 12.2 % (2-11); Neutrophils Absolute Auto 3.3 x10*3/uL (2.0-8.3); Neutrophils Percent Auto 57.9 % (45-73); Platelet Count 201 X10*3/uL (160-400); Red Blood Count 4.11 X10*6/uL (4.60-5.80); Red Cell Distribution Width 14.3 % (11.0-16.0); White Blood Count 5.7 X10*3/uL (4.8-10.8)
[2024-08-01 11:38] LABS: Alanine Aminotransferase 14 U/L (0-40); Albumin Level 4.3 g/dL (3.5-5.0); Alkaline Phosphatase 61 U/L (39-117); Anion Gap 10 (12-20); Aspartate Amino Transferase 20 U/L (5-37); Bilirubin Total 0.3 mg/dL (0.0-1.0); Blood Urea Nitrogen 8 mg/dL (9-16); Calcium 9.7 mg/dL (8.4-10.2); Carbon Dioxide 28 mmol/L (22-29); Chloride 106 mmol/L (96-108); Cholesterol 109 mg/dL (<200); Estimated Glomerular Filt Rate > 60; Glucose Fasting 85 mg/dL (60-99); HDL Cholesterol 37 mg/dL (>40); LDL Cholesterol Calculated 57 mg/dL (<100); Potassium 4.9 mmol/L (3.3-5.1); Sodium 139 mmol/L (135-145); Total Protein 7.3 g/dL (6.5-8.0); Triglycerides 78 mg/dL (<150)
== END 2024-08-01 09:38 | disposition home or self-care (01) ==
LOC: HO.LAB 09:37
PROVIDERS: PCP Internal Medicine; Visit Provider Internal Medicine
DX: D64.9 Anemia, unspecified (principal); E78.00 Pure hypercholesterolemia, unspecified
CPT/HCPCS: 36415; 80053; 80061; 81003; 85025

== ENCOUNTER 2024-08-28 09:33 | Outpatient (AMB) | payer OTHER, SELFPAY ==
[2024-08-28 09:49] VITALS: BP 110/76; PULSE 66; O2SAT 99; BMI 19.5
--- NOTE | 2024-08-28 09:49 | A.OFFPC_ITS ---
Vital Signs 08/28/24 09:49 Height 5 ft 5 in Weight 117 lb 6 oz BMI 19.5 BP 110/76 Blood Pressure Location Lt brachial Position Sitting Pulse 66 Pulse Source Pulse Oximeter Pulse Oximetry (%) 99 Oxygen Delivery Method Room Air Intake Visit Reasons: 3mth f/u Security Installer Required: No Accompanied by: Self / Same As Patient Allergies iron Adverse Reaction (Severe, Verified 08/28/24 11:44) abdominal pain and severe constipation acetaminophen [From TYLENOL] Adverse Reaction (Unknown, Verified 08/28/24 11:44) Liver problems Medication List - Last Reconciled 08/28/24 by Scar Espinoza MD amoxicillin 500 mg PO Q8H 7 days baclofen 20 mg PO BEDTIME 30 days cholecalciferol (vitamin D3) 50 mcg PO DAILY 90 days cyanocobalamin (vitamin B-12) 1,000 mcg PO DAILY ipratropium-albuterol 20-100 mcg/actuation (Combivent Respimat) 1 puff inhalation QID PRN omeprazole 20 mg PO BID propranolol 10 mg PO BID ropinirole 0.5 mg PO BEDTIME 30 days rosuvastatin 5 mg PO DAILY 90 days Tobacco use date assessed: 08/28/24 Fall risk assessment: No Falls in past year Last assessed Fall Risk: 08/28/24 Dental Screening Dental Screen Date: 08/28/24 Did you have a dental visit in the last 12 months?: No Did you have a dental problem in the last 6 months where you did not have access to dental care?: No Was dental information given to patient?: No HPI 3mth f/u HPI Details Patient comes in today for his follow up visit States that he continues to experience frequent and recurrent bilateral leg and feet cramping, especially at night Relates that his bedtime dose of Baclofen helps with his symptoms but only temporarily He has also been experiencing increased pain over the base of one of his right lower molars, which appear to be falling off and is shelter out of its socket States that he has not yet contacted a dentist (as he is afraid of injections) and also does not know who to call locally He is also still receiving IV iron infusion as needed through Dr. Ventura for his anemia as he cannot tolerate oral iron supplements, which cause abdominal pain and severe constipation States that he feels okay otherwise He denies any headaches or dizziness Denies any chest pains, no SOB No nausea/vomiting, no abdominal pain No change in bowel habits noted He had his follow up labs done last month - to discuss his results Adds that he also received a letter from GI recently informing him that it is time for his repeat colonoscopy and for him to call them up to schedule his appt [facility] Medical History (Updated 08/28/24 @ 12:10 by Scar Espinoza MD) Smoker Benign essential hypertension Pure hypercholesterolemia COPD (chronic obstructive pulmonary disease) Nicotine dependence, cigarettes, uncomplicated Iron deficiency anemia Vitamin D deficiency Duodenal arteriovenous malformation Gastritis Tubular adenoma of colon (~2020) Left inguinal pain Surgical History History of elbow surgery History of left inguinal hernia repair (~2009) History of esophagogastroduodenoscopy (EGD) (~2020) History of colonoscopy (~2020) Family History Sister HTN (hypertension) Social History Household Members: [facility] Are you a primary neonatal intensive care nurse to a significant other at home: No Do you presently have visiting nurse or other home services: No Alcohol intake: former Patient Tobacco Use Status: Current everyday Tobacco user Tobacco use type: Cigarette Cigarette Packs Per Day: 0.5 Years Smoked: (onset 14yo, 1/2ppd x 53yrs, 25+PYH) e-Cigarette/Vaping Use: Never Used service: No Current occupational status: disabled Cognitive needs: No Hearing needs: No Vision needs: No Questionnaire PHQ-9 Over the last 2 weeks, how often have you been bothered by any of the following problems? 1. Little interest or pleasure in doing things: not at all 2. Feeling down, depressed, or hopeless: not at all 3. Trouble falling or staying asleep, or sleeping too much: not at all 4. Feeling tired or having little energy: not at all 5. Poor appetite or overeating: not at all 6. Feeling bad about yourself - or that you are a failure or have let yourself or your family down: not at all 7. Trouble concentrating on things, such as reading the newspaper or watching television: not at all 8. Moving or speaking so slowly that other people could have noticed. Or the opposite - being so fidgety or restless that you have been moving around a lot more than usual: not at all 9. Thoughts that you would be better off or of hurting yourself in some way: not at all Total score: 0 Depression Screening Interpretation: Negative Depression Screening Done: Yes 26594 - PHQ-9 Billing: Yes Source: Developed by Drs. Abdirashid Nava, Cara Benson, Qamar Kan and colleagues, with an educational atif from [employer]. Thrive Questionnaire Date Thrive assessed: 08/28/24 I am a: Patient What is your living situation today?: I have a steady place to live Within the past 12 months, did the food you bought not last and you didn't have the money to get more?: Never true Within the past 12 months, did you worry whether your food would run out before you got money to buy more?: Never true Do you have trouble paying for medicines?: No Do you have trouble getting transportation to medical appointments?: No Do you have trouble paying your heating and electricity bill?: No Do you have trouble taking care of your child, family member or friend?: No Do you have trouble with day-to-day activities such as bathing, preparing meals, shopping, managing finances, etc.?: No Are you currently unemployed and looking for a job?: No Are you interested in more education?: No Please select the resources that you would like help with: None Currently or been in a relationship where the following occur: No concerns reported THRIVE Score: 0 AUDIT C Alcohol Use Questionnaire (AUDIT-C) 1. How often do you have a drink containing alcohol?: Never 3. How often do you have six or more drinks on one occasion?: Never Total Score: 0 Score Reviewed/Action Taken: Yes CHACHO-7 AMB Questionnaire CHACHO-7 Date CHACHO - 7 assessed: 08/28/24 Feeling nervous, anxious, or on edge: 0 = Not at all Not being able to stop or control worryin = Not at all Worrying too much about different things: 0 = Not at all Trouble relaxin = Not at all Being so restless that it is hard to sit still: 0 = Not at all Becoming easily annoyed or irritable: 0 = Not at all Feeling afraid as if something awful might happen: 0 = Not at all Total CHACHO-7 score (0-4 normal; 5-9 mild; 10-14 moderate; 15-21 severe): 0 Source: Developed by Drs. Abdirashid Nava, Cara Benson, Qamar Kan and colleagues, with an educational atif from [employer]. Review of Systems Const Denies chills, Reports difficulty sleeping, Denies fatigue, Denies fever(s) and Denies headache(s) ENT Reports dental pain (see HPI), Denies dysphagia, Denies dizziness, Denies otalgia, Denies headache(s), Denies neck pain, Denies odynophagia and Denies sore throat Card Denies chest pain, Denies irregular heart rhythm, Denies palpitations and Denies dyspnea Resp Denies chest congestion, Denies cough and Denies dyspnea GI Denies abdominal pain, Denies constipation, Denies dysphagia, Denies heartburn, Denies diarrhea, Denies nausea, Denies odynophagia and Denies vomiting Denies difficulty urinating, Denies dysuria, Reports nocturia and Reports urinary frequency Musc Denies back pain, Denies arthralgias, Reports muscle cramps (in both legs but especially in toes of both feet, worse at night) and Denies neck pain Skin/Breast Denies rash Neuro Denies dizziness, Denies headache(s) and Denies paresthesias Endo Denies fatigue and Denies palpitations Physical exam (Primary Care) Vital Signs: Last Vital Signs Pulse 66 08/28/24 09:49 BP 110/76 08/28/24 09:49 Pulse Ox 99 08/28/24 09:49 Oxygen Delivery Method Room Air 08/28/24 09:49 BMI result Body Mass Index 19.5 Tobacco/Smoking Status: Tobacco use Status Tobacco use date assessed 08/28/24 08/28/24 09:51 Patient Tobacco Use Status Current everyday Tobacco 08/28/24 09:51 Tobacco use type Cigarette 08/28/24 09:51 e-Cigarette/Vaping Use Never Used 08/28/24 09:51 PHQ-9: PHQ-9 Score PHQ-9: Total score 0 08/28/24 09:51 Depression Screening Interpretation: Negative Thrive Assessment: Date of Thrive Assessment Date Thrive assessed 08/28/24 08/28/24 09:51 Currently or been in a relationship where the following occur: No concerns reported Const General: no acute distress and alert HENMT Ears: TM's normal bilaterally and EAC's normal Teeth and gingiva: edentulous (patient does have one remaining R lower molar th at is shelter out of gum) Throat: Yes posterior oropharynx normal and Yes tonsils normal (no TP congestion) Neck Neck: Yes no lymphadenopathy and Yes supple Thyroid: Thyroid normal Resp Auscultation: clear to auscultation bilaterally, no rales and no wheezes Cardio Rate: regular rate Rhythm: regular rhythm Heart sounds: no murmurs GI Palpation (GI): Soft to palpation and nontender Auscultation: normal bowel sounds General: Yes no CVA tenderness Back/Spine/Pelvis Back: no CVA tenderness Skin Rashes: no rashes Extrem General: Yes no clubbing, cyanosis or edema Office Procedures Flu Questionnaire Does the patient have a severe egg allergy?: No Does the patient have severe life threatening allergies?: No Does the patient have a fever or illness today?: No Has the patient ever had Guillain-[place] Syndrome?: No Has the patient ever had any past reaction to a flu shot?: No Immunizations Fluarix Triv [id number] (PF) 45 mcg (15 mcg x 3)/0.5 mL IM syringe Performing Provider: Scar Espinoza MD [facility] Documented (not given) by: NOMI Stewart on 08/28/24 09:52 Reason Not Given: Received Previously Results Reviewed Results Reviewed: Laboratory Tests 08/01/24 08/01/24 09:45 10:00 WBC 5.7 Hgb 9.6 L D Hct 30.9 L Plt Count 201 Sodium 139 Potassium 4.9 D Creatinine 1.10 Estimated GFR > 60 Fasting Glucose 85 Calcium 9.7 AST 20 ALT 14 Triglycerides 78 Cholesterol 109 LDL Cholesterol, Calc 57 HDL Cholesterol 37 L Ur Specific [place] <= 1.005 Urine Protein Negative Urine Glucose (UA) Negative Urine Blood Negative Urine Nitrite Negative Ur Leukocyte Esterase Negative Coding Level of Care Code Est Pt Level 4 (60116) Diagnoses Iron deficiency anemia, unspecified iron deficiency anemia type D50.9 Iron deficiency anemia type: unspecified iron deficiency Bilateral leg cramps R25.2 Chronic gastritis without bleeding, unspecified gastritis type K29.50 Gastritis type: unspecified gastritis Chronicity: chronic Gastritis bleeding: without bleeding Duodenal arteriovenous malformation K31.819 Pure hypercholesterolemia E78.00 Benign essential hypertension I10 Chronic obstructive pulmonary disease, unspecified COPD type J44.9 COPD type: unspecified COPD Vitamin D deficiency E55.9 Dental implant pain, sequela T85.848S Encounter type: sequela Smoker F17.200 Assessment & Plan Assessment & Plan (1) Iron deficiency anemia: Code(s): D50.9 - Iron deficiency anemia, unspecified Category: Medical Qualifiers: Iron deficiency anemia type: unspecified iron deficiency Qualified Code(s): D50.9 - Iron deficiency anemia, unspecified Plan: Have advised patient that his H/H have again dropped from previous - H/H is now at 9.6/30.9 He has been receiving IV iron infusion when needed as he is unable to tolerate oral iron tablets/supplements due to abdominal pain and severe constipation Follow up with hematology (Dr. Ventura) as scheduled - has appointment scheduled for next month (2) Bilateral leg cramps: Code(s): R25.2 - Cramp and spasm Category: Medical Plan: He was on Baclofen previously but he states that they only help temporarily and partially Have advised patient that anemia is one of the conditions that can contribute to leg cramping and pain, especially at night Will try him now on Ropinirole 0.5 mg Q HS (3) Gastritis: Comment: (EGD in September 2021 revealed (+) gastric erosion and erythema) Code(s): K29.70 - Gastritis, unspecified, without bleeding Category: Medical Qualifiers: Gastritis type: unspecified gastritis Chronicity: chronic Gastritis bleeding: without bleeding Qualified Code(s): K29.50 - Unspecified chronic gastritis without bleeding Plan: Continue Omeprazole 20 mg BID Follow up with GI as scheduled (4) Duodenal arteriovenous malformation: Comment: (seen on EGD done 09/2021 - s/p ablation with APC) Code(s): K31.819 - Angiodysplasia of stomach and duodenum without bleeding Category: Medical Plan: (+) Hx of GI bleed due to AVMs He's had no issues with GI bleeding for several months now Follow up with GI as scheduled (5) Pure hypercholesterolemia: Code(s): E78.00 - Pure hypercholesterolemia, unspecified Category: Medical Plan: Results of his labs done last month reviewed and discussed with patient Reinforced low cholesterol diet Continue Rosuvastatin 5 mg QD Will recheck his fasting lipids and labs in 3 months for follow up (6) Benign essential hypertension: Code(s): I10 - Essential (primary) hypertension Category: Medical Plan: Reinforced low sodium diet - goal is systolic BP of 120 to 130 mm or less Continue Propranolol 10 mg BID although Propranolol was initially prescribed more for his liver (portal hypertension) than his BP (7) COPD (chronic obstructive pulmonary disease): Comment: CT lung (screening) in 09/2023 revealed (+) findings of mild emphysema Code(s): J44.9 - Chronic obstructive pulmonary disease, unspecified Category: Medical Qualifiers: COPD type: unspecified COPD Qualified Code(s): J44.9 - Chronic obstructive pulmonary disease, unspecified Plan: Currently appears stable CT lung scan in September 2023 revealed (+) findings of mild emphysema Continue Combivent Respimat 20-100 mcg 1 inhalation QID (8) Vitamin D deficiency: Code(s): E55.9 - Vitamin D deficiency, unspecified Category: Medical Plan: Continue Vitamin D3 2000 units QD (9) Dental implant pain: Code(s): T85.848A - Pain due to other internal prosthetic devices, implants and grafts, initial encounter Category: Medical Qualifiers: Encounter type: sequela Qualified Code(s): T85.848S - Pain due to other internal prosthetic devices, implants and grafts, sequela Plan: Patient is advised that he really needs to see a dentist to have his loose tooth removed and the front office should be able to provide him with some phone numbers of local dentists to call for appointment Will start him for now on Amoxicillin 500 mg Q 8 hours x 7 days but reminded that this will only help temporarily and that he needs to have his affected tooth extracted by a dentist VANESSA (10) Smoker: Code(s): F17.200 - Nicotine dependence, unspecified, uncomplicated Category: Social Hx Plan: Patient is counseled again on smoking cessation Plan Follow up in 3 months Orders: Orders Influenza [id number] Immunization Today Z23 - Encounter for immunization Lipid Panel 3 Months E78.00 - Pure hypercholesterolemia, unspecified Complete Blood Count Auto Diff 4 Months D64.9 - Anemia, unspecified UA CC w/rflx Micro + Cult 3 Months R30.0 - Dysuria Comprehensive [place]. Panel Fast 3 Months E78.00 - Pure hypercholesterolemia, unspecified Ammonia 3 Months K76.82 - Hepatic encephalopathy Medications: New ropinirole administer 1-3 hours before bedtime 0.5 mg PO BEDTIME 30 days 30 tabs 2RF nocturnal leg cramps amoxicillin 500 mg PO Q8H 7 days 21 caps 0RF
== END 2024-08-28 10:40 | disposition home or self-care (01) ==
PROVIDERS: PCP Internal Medicine; Visit Provider Internal Medicine
DX: J44.9 Chronic obstructive pulmonary disease, unspecified (principal); D50.9 Iron deficiency anemia, unspecified; R25.2 Cramp and spasm; K29.50 Unspecified chronic gastritis without bleeding; K31.819 Angiodysplasia of stomach and duodenum without bleeding; E78.00 Pure hypercholesterolemia, unspecified; I10 Essential (primary) hypertension; E55.9 Vitamin D deficiency, unspecified; T85.848S Pain due to other internal prosthetic devices, implants and grafts, sequela; F17.200 Nicotine dependence, unspecified, uncomplicated

== ENCOUNTER → 2024-08-28 09:33 | Outpatient (BNVA) | payer OTHER, SELFPAY | PROVIDERS: PCP Internal Medicine; Visit Provider Internal Medicine | DX: D50.9 Iron deficiency anemia, unspecified (principal); R25.2 Cramp and spasm; K29.50 Unspecified chronic gastritis without bleeding; K31.819 Angiodysplasia of stomach and duodenum without bleeding; E78.00 Pure hypercholesterolemia, unspecified; I10 Essential (primary) hypertension; J44.9 Chronic obstructive pulmonary disease, unspecified; E55.9 Vitamin D deficiency, unspecified; F17.200 Nicotine dependence, unspecified, uncomplicated; Z71.6 Tobacco abuse counseling | CPT/HCPCS: 90471; 96127; 99212 ==

== ENCOUNTER 2024-10-09 09:28 | Outpatient (REF) | payer OTHER, SELFPAY | END 2024-10-09 09:29 | disposition home or self-care (01) | LOC: HO.CT 09:28 | PROVIDERS: PCP Internal Medicine; Visit Provider Physician Assistant Medical | DX: Z12.2 Encounter for screening for malignant neoplasm of respiratory organs (principal); F17.210 Nicotine dependence, cigarettes, uncomplicated | CPT/HCPCS: 71271 ==

== ENCOUNTER → 2024-10-09 09:30 | Outpatient (BNV) | payer OTHER, SELFPAY | PROVIDERS: PCP Internal Medicine; Visit Provider Radiology Diagnostic Radiology | DX: R91.1 Solitary pulmonary nodule (principal) | CPT/HCPCS: 71271 ==

== ENCOUNTER 2024-11-21 09:30 | Outpatient (RCR) | payer OTHER, SELFPAY ==
[2024-10-29 09:39] VITALS: BP 116/61; PULSE 63; RESP 14; TEMP 36.5; O2SAT 100
[2024-10-29] MEDS: 0.9 % Sodium Chloride Flush 10 ML SYRINGE 5 ML IVFLUSH (10:11)
[2024-11-07 08:36] VITALS: BP 122/61; PULSE 55; RESP 16; TEMP 36.2; O2SAT 97
[2024-11-14 08:32] VITALS: BP 143/52; PULSE 56; RESP 16; TEMP 36.1; O2SAT 97
[2024-11-21 08:36] VITALS: BP 134/69; PULSE 58; RESP 16; TEMP 36.2; O2SAT 95
== END 2025-06-04 10:03 | disposition home or self-care (01) ==
LOC: HO.INF 09:30
PROVIDERS: PCP Internal Medicine; Visit Provider Internal Medicine
DX: D50.9 Iron deficiency anemia, unspecified (principal)
CPT/HCPCS: 96374; J1756

== ENCOUNTER 2024-12-18 09:32 | Outpatient (AMB) | payer OTHER, SELFPAY ==
--- NOTE | 2024-12-18 10:19 | MHC.PC.OV ---
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: No Accompanied by: Self / Same As Patient Allergies iron Adverse Reaction (Severe, Verified 12/18/24 11:07) abdominal pain and severe constipation ferrous fumarate Adverse Reaction (Intermediate, Verified 12/18/24 11:13) Constipation acetaminophen [From TYLENOL] Adverse Reaction (Unknown, Verified 12/18/24 11:07) Liver problems Medication List - Last Reconciled 12/18/24 by Scar Espinoza MD baclofen 20 mg PO BEDTIME 30 days cholecalciferol (vitamin D3) 50 mcg PO DAILY 90 days cyanocobalamin (vitamin B-12) 1,000 mcg PO DAILY ipratropium-albuterol 20-100 mcg/actuation (Combivent Respimat) 1 puff inhalation QID PRN omeprazole 20 mg PO BID propranolol 10 mg PO BID ropinirole 0.5 mg PO BEDTIME 30 days rosuvastatin 5 mg PO DAILY 90 days Tobacco use date assessed: 12/18/24 Fall risk assessment: No Falls in past year Last assessed Fall Risk: 12/18/24 Dental Screening Dental Screen Date: 12/18/24 Did you have a dental visit in the last 12 months?: No Did you have a dental problem in the last 6 months where you did not have access to dental care?: No Was dental information given to patient?: No HPI PE HPI Details Patient comes in today for his annual physical examination States that he feels okay He denies any headaches or dizziness Denies any chest pains, no shortness of breath No nausea/vomiting, no abdominal pain No change in bowel habits noted He denies any acute urinary symptoms He was not able to get his follow-up labs done prior to his appointment today - states that he can go and get them done as soon as he leaves the office today He had his last colonoscopy done in September of 2021 and he is now due for repeat colonoscopy - was on a 3 year recall [facility] Medical History Benign essential hypertension Pure hypercholesterolemia COPD (chronic obstructive pulmonary disease) Nicotine dependence, cigarettes, uncomplicated Iron deficiency anemia Vitamin D deficiency Duodenal arteriovenous malformation Gastritis Tubular adenoma of colon (~2020) Left inguinal pain Surgical History History of elbow surgery History of left inguinal hernia repair (~2009) History of esophagogastroduodenoscopy (EGD) (~2020) History of colonoscopy (~2020) Family History Sister HTN (hypertension) Social History Household Members: Family Housing: Condominium Are you a primary childcare center director to a significant other at home: No Do you presently have visiting nurse or other home services: No Alcohol intake: former Patient Tobacco Use Status: Current everyday Tobacco user Tobacco use type: Cigarette Cigarette Packs Per Day: 0.5 Years Smoked: (onset 14yo, 1/2ppd x 53yrs, 25+PYH) e-Cigarette/Vaping Use: Never Used service: No Current occupational status: disabled Cognitive needs: No Hearing needs: No Vision needs: No Questionnaire PHQ-9 Over the last 2 weeks, how often have you been bothered by any of the following problems? 1. Little interest or pleasure in doing things: not at all 2. Feeling down, depressed, or hopeless: not at all 3. Trouble falling or staying asleep, or sleeping too much: not at all 4. Feeling tired or having little energy: not at all 5. Poor appetite or overeating: not at all 6. Feeling bad about yourself - or that you are a failure or have let yourself or your family down: not at all 7. Trouble concentrating on things, such as reading the newspaper or watching television: not at all 8. Moving or speaking so slowly that other people could have noticed. Or the opposite - being so fidgety or restless that you have been moving around a lot more than usual: not at all 9. Thoughts that you would be better off or of hurting yourself in some way: not at all Total score: 0 Depression Screening Interpretation: Negative Depression Screening Done: Yes 03392 - PHQ-9 Billing: Yes Source: Developed by Drs. Abdirashid Nava, Cara Benson, Qamar Kan and colleagues, with an educational atif from [employer]. Thrive Questionnaire Date Thrive assessed: 12/18/24 I am a: Patient What is your living situation today?: I choose not to answer this question Within the past 12 months, did the food you bought not last and you didn't have the money to get more?: I choose not to answer this question Within the past 12 months, did you worry whether your food would run out before you got money to buy more?: I choose not to answer this question Do you have trouble paying for medicines?: I choose not to answer this question Do you have trouble getting transportation to medical appointments?: I choose not to answer this question Do you have trouble paying your heating and electricity bill?: I choose not to answer this question Do you have trouble taking care of your child, family member or friend?: I choose not to answer this question Do you have trouble with day-to-day activities such as bathing, preparing meals, shopping, managing finances, etc.?: I choose not to answer this question Are you currently unemployed and looking for a job?: I choose not to answer this question Are you interested in more education?: I choose not to answer this question Please select the resources that you would like help with: None Currently or been in a relationship where the following occur: I choose not to answer THRIVE Score: 0 AUDIT C Alcohol Use Questionnaire (AUDIT-C) 1. How often do you have a drink containing alcohol?: Never Total Score: 0 CHACHO-7 AMB Questionnaire CHACHO-7 Date CHACHO - 7 assessed: 12/18/24 Feeling nervous, anxious, or on edge: 0 = Not at all Not being able to stop or control worryin = Not at all Worrying too much about different things: 0 = Not at all Trouble relaxin = Not at all Being so restless that it is hard to sit still: 0 = Not at all Becoming easily annoyed or irritable: 0 = Not at all Feeling afraid as if something awful might happen: 0 = Not at all Total CHACHO-7 score (0-4 normal; 5-9 mild; 10-14 moderate; 15-21 severe): 0 Source: Developed by Yony Garciaet B.W. Marcelino, Qamar Kan and colleagues, with an educational atif from [employer]. Review of Systems Const Denies chills, Reports difficulty sleeping, Denies fatigue, Denies fever(s) and Denies headache(s) Eyes Denies blurry vision, Denies change in vision, Denies irritation and Denies itchy eyes ENT Denies dysphagia, Denies dizziness, Denies otalgia, Denies headache(s), Denies neck pain, Denies odynophagia and Denies sore throat Card Denies chest pain, Denies irregular heart rhythm, Denies palpitations and Denies dyspnea Resp Denies chest congestion, Denies cough, Denies dyspnea and Denies wheezing GI Denies abdominal pain, Denies constipation, Denies dysphagia, Denies heartburn, Denies diarrhea, Denies nausea, Denies odynophagia and Denies vomiting Denies difficulty urinating, Denies dysuria, Reports nocturia and Reports urinary frequency Musc Denies back pain, Denies arthralgias, Reports muscle cramps (in both legs but especially in toes of both feet, worse at night) and Denies neck pain Skin/Breast Denies rash Neuro Denies dizziness, Denies headache(s) and Denies paresthesias Endo Denies fatigue and Denies palpitations Aller/Immun Denies itchy eyes and Denies wheezing Physical exam (Primary Care) Vital Signs: Last Vital Signs Pulse 59 12/18/24 10:20 BP 110/78 12/18/24 10:20 Pulse Ox 99 12/18/24 10:20 Oxygen Delivery Method Room Air 12/18/24 10:20 BMI result Body Mass Index 19.5 Tobacco/Smoking Status: Tobacco use Status Tobacco use date assessed 12/18/24 12/18/24 10:23 Patient Tobacco Use Status Current everyday Tobacco 12/18/24 10:23 Tobacco use type Cigarette 12/18/24 10:23 e-Cigarette/Vaping Use Never Used 12/18/24 10:23 PHQ-9: PHQ-9 Score PHQ-9: Total score 0 12/18/24 11:09 Depression Screening Interpretation: Negative Thrive Assessment: Date of Thrive Assessment Date Thrive assessed 12/18/24 12/18/24 10:23 Currently or been in a relationship where the following occur: I choose not to answer Const General: no acute distress and alert Orientation/consciousness: patient oriented x3 HENMT Head: Yes normocephalic and Yes atraumatic Ears: TM's normal bilaterally and EAC's normal General nose exam: No nasal discharge present Face and sinus: Yes normal facial exam and Yes sinuses nontender Teeth and gingiva: edentulous (patient does have one remaining R lower molar that is assisted out of gum) Throat: Yes posterior oropharynx normal and Yes tonsils normal (no TP congestion) Eyes Eyelids: Yes eyelids normal Conjunctivae: conjunctivae normal Pupils: Equal, round and reactive pupils present EOM: EOMs intact bilaterally Neck Neck: Yes no lymphadenopathy and Yes supple Thyroid: Thyroid normal Resp Auscultation: clear to auscultation bilaterally, no rales and no wheezes Cardio Rate: regular rate Rhythm: regular rhythm Heart sounds: no murmurs GI Palpation (GI): Soft to palpation and nontender Auscultation: normal bowel sounds General: Yes no CVA tenderness Back/Spine/Pelvis Back: no CVA tenderness Thoracic/Lumbar Spine: thoracic and lumbar spine normal to inspection Skin Lesions: no lesions Rashes: no rashes Neuro General: patient oriented x3, moves all extremities, no focal motor deficits and CN's II-XI intact bilaterally Cranial nerves: Yes Equal, round and reactive pupils present Cognition (Neuro): normal cognition Gait exam (Neuro): Normal gait present Extrem General: Yes no clubbing, cyanosis or edema Coding Level of Care Code Est Pt Prev Care >65y(71604) Diagnoses Annual physical exam Z00.00 Iron deficiency anemia, unspecified iron deficiency anemia type D50.9 Iron deficiency anemia type: unspecified iron deficiency Bilateral leg cramps R25.2 Chronic gastritis without bleeding, unspecified gastritis type K29.50 Gastritis type: unspecified gastritis Chronicity: chronic Gastritis bleeding: without bleeding Duodenal arteriovenous malformation K31.819 Pure hypercholesterolemia E78.00 Benign essential hypertension I10 Chronic obstructive pulmonary disease, unspecified COPD type J44.9 COPD type: unspecified COPD Vitamin D deficiency E55.9 Smoker F17.200 Additional Codes PHQ-9 - 66486 - PHQ-9 Billing: Yes ([id number]) Assessment & Plan Assessment & Plan (1) Annual physical exam: Code(s): Z00.00 - Encounter for general adult medical examination without abnormal findings Category: Medical Plan: Patient was not able to get his follow up labs done prior to his appointment today - states that he can go over to the lab and get them done as soon as he leaves the office today He is now due for his repeat colonoscopy - was last done in 06/2021 and he is on a 3 year recall due to tubular adenomas (2) Iron deficiency anemia: Code(s): D50.9 - Iron deficiency anemia, unspecified Category: Medical Qualifiers: Iron deficiency anemia type: unspecified iron deficiency Qualified Code(s): D50.9 - Iron deficiency anemia, unspecified Plan: His H/H was most recently at 7.5/26.2 last month He has been receiving IV iron infusion when needed as he is unable to tolerate oral iron tablets/supplements due to abdominal pain and severe constipation Will have him go and get his CBC rechecked VANESSA Follow up with hematology (Dr. Ventura) as scheduled (3) Bilateral leg cramps: Code(s): R25.2 - Cramp and spasm Category: Medical Plan: He was on Baclofen previously but he states that they only helped temporarily and partially Have advised patient that anemia is one of the conditions that can contribute to leg cramping and pain, especially at night He was then started on a trial of Ropinirole 0.5 mg Q HS at his last visit - patient states that this has helped better than Baclofen did - (?) possible RLS (4) Gastritis: Comment: (EGD in September 2021 revealed (+) gastric erosion and erythema) Code(s): K29.70 - Gastritis, unspecified, without bleeding Category: Medical Qualifiers: Gastritis type: unspecified gastritis Chronicity: chronic Gastritis bleeding: without bleeding Qualified Code(s): K29.50 - Unspecified chronic gastritis without bleeding Plan: Continue Omeprazole 20 mg BID Follow up with GI as scheduled (5) Duodenal arteriovenous malformation: Comment: (seen on EGD done 09/2021 - s/p ablation with APC) Code(s): K31.819 - Angiodysplasia of stomach and duodenum without bleeding Category: Medical Plan: (+) Hx of GI bleed due to AVMs He's had no issues with GI bleeding for several months now Follow up with GI as scheduled (6) Pure hypercholesterolemia: Code(s): E78.00 - Pure hypercholesterolemia, unspecified Category: Medical Plan: Will have patient go and get his labs done VANESSA Reinforced low cholesterol diet Continue Rosuvastatin 5 mg QD Will recheck his fasting lipids and labs again in 3 months for follow up (7) Benign essential hypertension: Code(s): I10 - Essential (primary) hypertension Category: Medical Plan: Reinforced low sodium diet - goal is systolic BP of 120 to 130 mm or less Continue Propranolol 10 mg BID although Propranolol was initially prescribed more for his liver (portal hypertension) than his BP (8) COPD (chronic obstructive pulmonary disease): Comment: CT lung (screening) in 09/2023 revealed (+) findings of mild emphysema Code(s): J44.9 - Chronic obstructive pulmonary disease, unspecified Category: Medical Qualifiers: COPD type: unspecified COPD Qualified Code(s): J44.9 - Chronic obstructive pulmonary disease, unspecified Plan: Currently appears stable CT lung scan in September 2023 revealed (+) findings of mild emphysema Continue Combivent Respimat 20-100 mcg 1 inhalation QID (9) Vitamin D deficiency: Code(s): E55.9 - Vitamin D deficiency, unspecified Category: Medical Plan: Continue Vitamin D3 2000 units QD (10) Smoker: Code(s): F17.200 - Nicotine dependence, unspecified, uncomplicated Category: Social Hx Plan: Patient is counseled again on smoking cessation Plan Follow up in 3 months Orders: Orders Prostate Specific Antigen 12/18/24 N40.0 - Benign prostatic hyperplasia without lower urinary tract symptoms, Z00.00 - Encounter for general adult medical examination without abnormal findings Vitamin D 25-OH Total 3 Months E55.9 - Vitamin D deficiency, unspecified, Z00.00 - Encounter for general adult medical examination without abnormal findings Comprehensive [place]. Panel Fast 3 Months E78.00 - Pure hypercholesterolemia, unspecified Vitamin B12 and Folate 4 Months E53.8 - Deficiency of other specified B group vitamins, Z00.00 - Encounter for general adult medical examination without abnormal findings Complete Blood Count Auto Diff 3 Months D64.9 - Anemia, unspecified Lipid Panel 3 Months E78.00 - Pure hypercholesterolemia, unspecified
[2024-12-18 10:20] VITALS: BP 110/78; PULSE 59; O2SAT 99; BMI 19.5
--- OUTSIDE RECORDS SUMMARY | 2024-12-18 11:05 | XMS_ITS | Encounter Summary ---
Author Organization [employer] Address [address] [facility] [address] [place] [address] Care Team Providers Care Crop Farm Workers Name Role Phone Leyla Cruz Primary Care Provider [phone] Jagdish Reyna Primary Care Provider Unavail able Encounter Details Date Type Department Care Team (Late st Contact Info) Description 03/21/2023 Orders Only [facility] [address] [place], [place] [id number] Debbie Melissa LPN Social History Tobacco Use Types Packs/Day Years Used Date Smoking Tobacco: Never Assessed Sex and Gender Information Value Date Recorded Sex Assigned at Male 09/19/2022 10:17 AM EDT Legal Sex Male 10:17 AM EDT Gender Identity Male 09/19/2022 10:17 AM EDT Sexual Orientation Don't know 09/19/2022 10 :17 AM EDT documented as of this encounter Plan of Treatment Not on file documented as of this encounter Visit Diagnoses Not on filedocumented in this encounter Care Teams Crop Farm Workers Relationship Specialty Start Date End Date Leyla Cruz FNP [address] [place] [address] PCP - General Family Medicine 10/19/22 04/20/23 Jagdish Reyna AGNP [address] [place] [address] PCP - General Family Medicine 04/21/23 06/13/23 documented as of this encounter
--- OUTSIDE RECORDS SUMMARY | 2024-12-18 11:05 | XMS_ITS | Encounter Summary ---
Author Organization [employer] Address [address] [facility] 7[address] [place] [address] Care Team Providers Care Supervisor Hydrochloric Area Name Role Phone Unavailable Primary Care Provider Unavailabl e Reason for Visit * Reason Comments Med Refill Encounter Details Date Type Department Care Team (Late st Contact Info) Description 06/28/2023 Refill [facility] [address] [place] [address] Leyla Cruz FNP [address] [place] [address] Social History Tobacco Use Types Packs/Day Years [...]
--- OUTSIDE RECORDS SUMMARY | 2024-12-18 11:05 | XMS_ITS | Encounter Summary ---
Author Organization [employer] Address [address] [facility] [address] [place] [address] Care Team Providers Care Reconcilement Clerk Name Role Phone Unavailable Primary Care Provider Unavailabl e Reason for Visit * Reason Comments Med Refill Encounter Details Date Type Department Care Team (Late st Contact Info) Description 06/15/2023 Refill [facility] [address] [place] [address] Leyla Cruz FNP [address] [place], [place] [phone] Gastroesophageal reflux disease, unspecified whether esophagitis present Social History Tobacco Use Types Packs/Day Years [...] documented as of this encounter Visit Diagnoses Diagnosis Gastroesophageal reflux disease, unspecified whether esophagitis present documented in this encounter
--- OUTSIDE RECORDS SUMMARY | 2024-12-18 11:05 | XMS_ITS | Clinical Summary ---
Author Organization [employer] Address [address] [facility] [address] [place] [address] Care Team Providers Care Equipment Service Associate Name Role Phone Unavailable Primary Care Provider Unavailabl e Medications omeprazole (PriLOSEC) [address] Jimenez ns:Gastroesophag eal reflux disease, unspecified whether esophagitis present TAKE 1 CAPSULE (20 MG) BY MOUTH 2 TIMES DAILY. DO NOT CRUSH OR CHEW. 180 capsule 03/20/2023 Active cyanocobalamin (Vitamin B-12) 1000 MCG tablet TOME LUZ TABLETA TODOS LOS FINCH 90 tablet 03/21/2023 Active propranolol (Inderal) 10 MG tabletIndication s:Alcoholic cirrhosis, unspecified whether ascites present (CMS/HCC) TOME LUZ TABLETA DOS VECES AL ALBIN 180 tablet 09/11/2023 Active Social History Tobacco Use Types Packs/Day Years Used Date Smoking Tobacco: Never Assessed Sex and Gender Information Value Date Recorded Sex Assigned at Male 09/19/2022 10:17 AM EDT Legal Sex Male 10:17 AM EDT Gender Identity Male 09/19/2022 10:17 AM EDT Sexual Orientation Don't know 09/19/2022 10 :17 AM EDT Last Filed Vital Signs Vital Sign Reading Time Taken Comments Blood Pressure 144/88 11/09/2021 12:12 AM EST Pulse 60 11/09/2021 12:12 AM EST Temperature - - Respiratory Rate - - Oxygen Saturation - - Inhaled Oxygen Concentration - - Weight 54.1 kg (119 lb 3.2 oz) 11/09/2021 12:12 AM EST Height 162.6 cm (5' 4 ) 11/09/2021 12:12 AM EST Body Mass Index 20.46 11/09/2021 12:12 AM EST Plan of Treatment Health Maintenance Due Date Last Done Comments CT Colonography 1953 Colonoscopy 1953 Colorectal Cancer Screening 1953 Depression Screening 1953 FIT DNA/Cologuard 1953 FIT 1953 FOBT 1953 Sigmoidoscopy 1953 Alcohol/Substance Use Screening 1965 Tobacco Screening 1965 Zoster Vaccines (2 of 3) 12/21/2017 10/26/2017 DTaP/Tdap/Td Vaccines (2 - Td or Tdap) 08/07/2022 08/07/2012, 07/13/2004 COVID-19 Vaccine (5 - season) 2024 10/19/2022, 11/09/2021, 04/01/2021, Additional history exists Influenza Vaccine (#1) 2024 2, 09/08/2021, 10/22/2020, Additional history exists Lipid Panel 03/29/2027 03/29/2022, 12/08/2020 RSV Patients and Patients Aged 60 years or older (1 - 1-dose 75+ series) 2028 Hepatitis A Vaccines Aged Out 10/25/2004, 09/28/20 04 No longer eligible based on patient's age to complete this topic Hepatitis B Vaccines Aged Out 11/25/2005, 11/04/2004, 09/28/2004 No longer eligible based on patient's age to complete this topic Pneumococcal Vaccine: 50+ Years Completed 07/13/2021, 03/19/2019, 09/12/2013 HIB Vaccines Aged Out No longer eligi ble based on patient's age to complete this topic HPV Vaccines Aged Out No longer eligi ble based on patient's age to complete this topic IPV Vaccines Aged Out No longer eligi ble based on patient's age to complete this topic Meningococcal Vaccine Aged Out No rafa kim eligible based on patient's age to complete this topic RSV under 20 months Aged Out No longe r eligible based on patient's age to complete this topic Rotavirus Vaccines Aged Out No longer eligible based on patient's age to complete this topic Procedures Procedure Name Priority Date/Time Associated Diagnosis Comments LIPID PANEL, STANDARD Routine 03/29/2022 12:00 AM EDT from Last 3 Months or Most Recently Relevant to Health Maintenance Results * (ABNORMAL) LIPID PANEL, STANDARD (03/29/2022 12:00 AM EDT) Chol/HDLC Ratio 6.4(H) <5.0 (calc) [facility] Cholesterol, Total 172 <200 mg/dL [facility] HDL Cholesterol 27(L) > OR = 40 mg/dL [facility] LDL Cholesterol 118(H) mg/dL (calc) [facility] Comment: Reference range: <100 ?? Desirable range <100 mg/dL for primary prevention; ?? <70 mg/dL for patients with CHD or diabetic patients ?? with > or = 2 CHD risk factors. ?? LDL-C is now calculated using the Lydia ?? calculation, which is a validated novel method providing ?? better accuracy than the Friedewald equation in the ?? estimation of LDL-C. ?? Austen GRIMM et al. RAMON. 2013;310(19): 8134-4942 ?? (http://education.Vipshop.com/faq/VTR789) Non-HDL Cholesterol 145(H) <130 mg/dL (calc) [facility] Comment: For patients with diabetes plus 1 major ASCVD risk ?? factor, treating to a non-HDL-C goal of <100 mg/dL ?? (LDL-C of <70 mg/dL) is considered a therapeutic ?? option. Triglycerides 154(H) <150 mg/dL [facility] 03/29/2022 us Demetris Romero MD LAB BLOOD ORDERABLES Final R esult [facility] [address] from Last 3 Months or Most Recently Relevant to Health Maintenance
== END 2024-12-18 11:17 | disposition home or self-care (01) ==
PROVIDERS: PCP Internal Medicine; Visit Provider Internal Medicine
DX: Z00.00 Encounter for general adult medical examination without abnormal findings (principal); J44.9 Chronic obstructive pulmonary disease, unspecified; D50.9 Iron deficiency anemia, unspecified; R25.2 Cramp and spasm; K29.50 Unspecified chronic gastritis without bleeding; K31.819 Angiodysplasia of stomach and duodenum without bleeding; E78.00 Pure hypercholesterolemia, unspecified; I10 Essential (primary) hypertension; E55.9 Vitamin D deficiency, unspecified; F17.200 Nicotine dependence, unspecified, uncomplicated

== ENCOUNTER 2024-12-18 09:32 | Outpatient (REF) | payer OTHER, SELFPAY ==
[2024-12-18 11:48] LABS: Ammonia 27 umol/L (13-55)
[2024-12-18 11:53] LABS: Basophils Absolute Auto 0.1 X10*3/uL (0.0-0.2); Basophils Percent Auto 0.9 % (0-2); Eosinophils Absolute Auto 0.2 X10*3/uL (0.0-0.4); Eosinophils Percent Auto 2.9 % (0-4); Hematocrit 34.9 % (42.0-52.0); Hemoglobin 10.9 g/dl (14.0-18.0); Imm Gran Abs Auto 0.01 X10*3/uL (0.00-0.03); Imm Gran Pct Auto 0.2 % (0.0-0.4); Lymphocytes Absolute Auto 1.7 X10*3/uL (1.2-4.9); Lymphocytes Percent Auto 31.3 % (20-40); Mean Corpuscular HGB Conc 31.2 g/dl (31.0-36.0); Mean Corpuscular Hemoglobin 24.4 pg (27.0-33.0); Mean Corpuscular Volume 78.3 fL (80.0-98.0); Mean Platelet Volume 10.4 fL (9.4-12.4); Monocytes Absolute Auto 0.6 X10*3/uL (0.1-1.2); Monocytes Percent Auto 10.1 % (2-11); Neutrophils Percent Auto 54.6 % (45-73); Platelet Count 186 X10*3/uL (160-400); Red Blood Count 4.46 X10*6/uL (4.60-5.80); White Blood Count 5.5 X10*3/uL (4.8-10.8)
[2024-12-18 11:57] LABS: MANUAL DIFF FLAG SCAN
[2024-12-18 12:03] LABS: Appearance Urine Clear; Color Urine Yellow; Glucose Urine UA Negative (Negative); Leukocyte Esterase Urine Negative (Negative); Nitrite Urine Negative (Negative); PH 6.5 (5.0-9.0); Urine Blood Negative (Negative); Urine Ketones Negative (Negative); Urine Protein Negative (Neg-Trace)
[2024-12-18 12:12] LABS: SLIDE REVIEW VERIFIED
[2024-12-18 12:48] LABS: Alanine Aminotransferase 19 U/L (0-40); Albumin Level 4.5 g/dL (3.5-5.0); Alkaline Phosphatase 59 U/L (39-117); Anion Gap 11 (12-20); Aspartate Amino Transferase 27 U/L (5-37); Bilirubin Total 0.3 mg/dL (0.0-1.0); Blood Urea Nitrogen 6 mg/dL (9-16); Calcium 9.6 mg/dL (8.4-10.2); Carbon Dioxide 26 mmol/L (22-29); Chloride 105 mmol/L (96-108); Cholesterol 123 mg/dL (<200); Estimated Glomerular Filt Rate > 60; Glucose Fasting 84 mg/dL (60-99); HDL Cholesterol 40 mg/dL (>40); LDL Cholesterol Calculated 62 mg/dL (<100); Potassium 4.3 mmol/L (3.3-5.1); Sodium 138 mmol/L (135-145); Total Protein 7.8 g/dL (6.5-8.0); Triglycerides 107 mg/dL (<150)
[2024-12-18 13:02] LABS: Prostate Specific Antigen 1.54 ng/mL (<0.05-4.0)
--- OUTSIDE RECORDS SUMMARY | 2024-12-18 13:42 | XMS_ITS | Clinical Summary ---
Author Organization [employer] Address [address] [facility] [address] [place] [address] Care Team Providers Care Forepart Rounder Name Role Phone Unavailable Primary Care Provider [...] ?? Austen GRIMM et al. RAMON. 2013;310(19): 8402-3715 ?? (http://education.mySBX.com/faq/YTI978) Non-HDL Cholesterol 145(H) <130 mg/dL (calc) [facility] Comment: For patients with diabetes plus 1 major ASCVD risk ?? factor, treating to a non-HDL-C goal of <100 mg/dL ?? (LDL-C of <70 mg/dL) is considered a therapeutic ?? option. Triglycerides 154(H) <150 mg/dL [facility] 03/29/2022 us Demetris Romero MD LAB BLOOD ORDERABLES Final R esult [facility] [address] from Last 3 Months or Most Recently Relevant to Health Maintenance
--- OUTSIDE RECORDS SUMMARY | 2024-12-18 13:42 | XMS_ITS | Encounter Summary ---
Author Organization [employer] Address [address] [facility] [address] [place] [address] Care Team Providers Care Hospital Administrator Name Role Phone Unavailable Primary Care Provider Unavailabl e Reason for Visit * Reason Comments Med Refill Encounter Details Date Type Department Care Team (Late st Contact Info) Description 06/28/2023 Refill [facility] [address] [place] [address] Leyla Cruz FNP [address] [place] [address] Social History Tobacco Use Types Packs/Day Years [...]
--- OUTSIDE RECORDS SUMMARY | 2024-12-18 13:43 | XMS_ITS | Encounter Summary ---
Author Organization [email or web address] Address [address] [facility] 7t [place] [address] Care Team Providers Care Sports Editor Name Role Phone Leyla Cruz Primary Care Provider [phone] Jagdish Reyna Primary Care Provider Unavail able Encounter Details Date Type Department Care Team (Late st Contact Info) Description 03/21/2023 Orders Only [facility] CHC MED & PEDS [address] [place], [place] [phone] Debbie Melissa LPN Social History Tobacco Use [...] on filedocumented in this encounter Care Teams Sports Editor Relationship Specialty Start Date End Date Leyla Cruz FNP [address] [place] [address] PCP - General Family Medicine 10/19/22 04/20/23 Jagdish Reyna AGNP [address] [place] [address] PCP - General Family Medicine 04/21/23 06/13/23 documented as of this encounter
--- OUTSIDE RECORDS SUMMARY | 2024-12-18 13:43 | XMS_ITS | Encounter Summary ---
Author Organization [employer] Address [address] [facility] 7t [place] [address] Care Team Providers Care Fish Cleaner Machine Tender Name Role Phone Unavailable Primary Care Provider Unavailabl e Reason for Visit * Reason Comments Med Refill Encounter Details Date Type Department Care Team (Late st Contact Info) Description 06/15/2023 Refill [facility] MEDICINE [address] [place] [address] Leyla Cruz FNP [address] [place], [place] [phone] Gastroesophageal reflux disease, unspecified whether esophagitis present [...]
== END 2024-12-18 09:33 | disposition home or self-care (01) ==
LOC: HO.LAB 09:32
PROVIDERS: PCP Internal Medicine; Visit Provider Internal Medicine
DX: Z00.00 Encounter for general adult medical examination without abnormal findings (principal); D50.9 Iron deficiency anemia, unspecified; R25.2 Cramp and spasm; K29.50 Unspecified chronic gastritis without bleeding; K31.819 Angiodysplasia of stomach and duodenum without bleeding; E78.00 Pure hypercholesterolemia, unspecified; I10 Essential (primary) hypertension; J44.9 Chronic obstructive pulmonary disease, unspecified; E55.9 Vitamin D deficiency, unspecified; F17.200 Nicotine dependence, unspecified, uncomplicated; Z79.899 Other long term (current) drug therapy; N40.0 Benign prostatic hyperplasia without lower urinary tract symptoms; Z12.5 Encounter for screening for malignant neoplasm of prostate
CPT/HCPCS: 36415; 80053; 80061; 81003; 82140; 84153; 85025; 96127; 99397

== ENCOUNTER 2025-03-21 09:27 | Outpatient (REF) | payer OTHER, SELFPAY ==
--- NOTE | ~2025-03-21 | XR_ITS ---
EXAMINATION: XR SHOULDER 2 OR MORE VIEWS LEFT HISTORY: M25.512 - Pain in left shoulder COMPARISON: There are no prior studies available for comparison. FINDINGS: Four views of the left shoulder are submitted. Osseous mineralization is normal. There is no fracture or dislocation. The glenohumeral joint is maintained. There is mild to moderate narrowing of the AC joint. The soft tissues are unremarkable. XR/XR shoulder LT min 2V IMPRESSION: Mild to moderate narrowing of the AC joint. Electronically signed by: Abdirashid Staley MD 03/21/2025 03:27 PM EDT
[2025-03-21 10:46] LABS: MANUAL DIFF FLAG NO
[2025-03-21 10:59] LABS: Basophils Absolute Auto 0.1 X10*3/uL (0.0-0.2); Eosinophils Absolute Auto 0.1 X10*3/uL (0.0-0.4); Hematocrit 32.2 % (42.0-52.0); Hemoglobin 10.1 g/dl (14.0-18.0); Imm Gran Abs Auto 0.01 X10*3/uL (0.00-0.03); Imm Gran Pct Auto 0.2 % (0.0-0.4); Lymphocytes Absolute Auto 1.6 X10*3/uL (1.2-4.9); Lymphocytes Percent Auto 33.5 % (20-40); Mean Corpuscular HGB Conc 31.4 g/dl (31.0-36.0); Mean Corpuscular Hemoglobin 24.2 pg (27.0-33.0); Mean Corpuscular Volume 77.2 fL (80.0-98.0); Mean Platelet Volume 10.6 fL (9.4-12.4); Monocytes Absolute Auto 0.5 X10*3/uL (0.1-1.2); Neutrophils Absolute Auto 2.6 x10*3/uL (2.0-8.3); Neutrophils Percent Auto 52.3 % (45-73); Platelet Count 215 X10*3/uL (160-400); Red Blood Count 4.17 X10*6/uL (4.60-5.80); Red Cell Distribution Width 13.8 % (11.0-16.0); White Blood Count 4.9 X10*3/uL (4.8-10.8)
--- OUTSIDE RECORDS SUMMARY | 2025-03-21 11:29 | XMS_ITS | Encounter Summary ---
Author Organization [employer] Address [address] [facility] 7t [place] [address] Care Team Providers Care Mural Painter Name Role Phone Unavailable Primary Care Provider Unavailabl e Reason for Visit * Reason Comments Med Refill Encounter Details Date Type Department Care Team (Late st Contact Info) Description 06/15/2023 Refill [facility] MEDICINE [address] [place] [address] Leyla Cruz FNP [address] [place], [place] [phone] Gastroesophageal reflux disease, unspecified whether esophagitis present [...]
--- OUTSIDE RECORDS SUMMARY | 2025-03-21 11:29 | XMS_ITS | Encounter Summary ---
Author Organization [employer] Address [address] [facility] [address] [place] [address] Care Team Providers Care Assistant Shift Supervisor Name Role Phone Unavailable Primary Care Provider Unavailabl e Reason for Visit * Reason Comments Med Refill Encounter Details Date Type Department Care Team (Late st Contact Info) Description 06/28/2023 Refill [facility] MEDICINE [address] [place] [address] Leyla Cruz FNP [address] [place] [address] Social History Tobacco Use Types Packs/Day Years [...]
--- OUTSIDE RECORDS SUMMARY | 2025-03-21 11:29 | XMS_ITS | Encounter Summary ---
Author Organization [employer] Address [address] [facility] 7t [place] [address] Care Team Providers Care Package Clerk Name Role Phone Leyla Cruz Primary Care Provider [phone] Jagdish Reyna Primary Care Provider Unavail able Encounter Details Date Type Department Care Team (Late st Contact Info) Description 03/21/2023 Orders Only [facility] CHC MED & PEDS [address] [place], [place] [phone] Debbie Melissa LPN Social History Tobacco Use [...] on filedocumented in this encounter Care Teams Package Clerk Relationship Specialty Start Date End Date Leyla Cruz FNP [address] [place] [address] PCP - General Family Medicine 10/19/22 04/20/23 Jagdish Reyna AGNP [address] [place] [address] PCP - General Family Medicine 04/21/23 06/13/23 documented as of this encounter
--- OUTSIDE RECORDS SUMMARY | 2025-03-21 11:29 | XMS_ITS | Clinical Summary ---
Author Organization [employer] Address [address] [facility] [address]t [place] [address] Care Team Providers Care Deicer Repairer Name Role Phone Unavailable Primary Care Provider [...] ?? Austen GRIMM et al. RAMON. 2013;310(19): 9249-8285 ?? (http://education.[email or web address].com/faq/AYD911) Non-HDL Cholesterol 145(H) <130 mg/dL (calc) [facility] Comment: For patients with diabetes plus 1 major ASCVD risk ?? factor, treating to a non-HDL-C goal of <100 mg/dL ?? (LDL-C of <70 mg/dL) is considered a therapeutic ?? option. Triglycerides 154(H) <150 mg/dL [facility] 03/29/2022 us Demetris Romero MD LAB BLOOD ORDERABLES Final R esult [facility] [address] from Last 3 Months or Most Recently Relevant to Health Maintenance
[2025-03-21 12:03] LABS: Alanine Aminotransferase 15 U/L (0-40); Albumin Level 4.5 g/dL (3.5-5.0); Alkaline Phosphatase 60 U/L (39-117); Anion Gap 10 (12-20); Aspartate Amino Transferase 22 U/L (5-37); Bilirubin Total 0.5 mg/dL (0.0-1.0); Blood Urea Nitrogen 7 mg/dL (9-16); Calcium 9.4 mg/dL (8.4-10.2); Carbon Dioxide 27 mmol/L (22-29); Chloride 106 mmol/L (96-108); Cholesterol 113 mg/dL (<200); Estimated Glomerular Filt Rate > 60; Glucose Fasting 89 mg/dL (60-99); HDL Cholesterol 37 mg/dL (>40); LDL Cholesterol Calculated 61 mg/dL (<100); Potassium 3.6 mmol/L (3.3-5.1); Sodium 139 mmol/L (135-145); Total Protein 7.6 g/dL (6.5-8.0); Triglycerides 78 mg/dL (<150); Vitamin D 25-OH Total 60.2 ng/mL (>30)
[2025-03-21 12:11] LABS: Folate 8.2 ng/mL (> or = 4.0); Vitamin B12 1490 pg/mL (200-900)
== END 2025-03-21 09:28 | disposition home or self-care (01) ==
LOC: HO.XRAY 09:27
PROVIDERS: PCP Internal Medicine; Visit Provider Internal Medicine
DX: D50.9 Iron deficiency anemia, unspecified (principal); R25.2 Cramp and spasm; K29.50 Unspecified chronic gastritis without bleeding; K31.819 Angiodysplasia of stomach and duodenum without bleeding; E78.00 Pure hypercholesterolemia, unspecified; I10 Essential (primary) hypertension; J44.9 Chronic obstructive pulmonary disease, unspecified; M25.512 Pain in left shoulder; E55.9 Vitamin D deficiency, unspecified; F17.200 Nicotine dependence, unspecified, uncomplicated; Z79.899 Other long term (current) drug therapy; Z00.00 Encounter for general adult medical examination without abnormal findings; D64.9 Anemia, unspecified; E53.8 Deficiency of other specified B group vitamins
CPT/HCPCS: 36415; 73030; 80053; 80061; 82306; 82607; 82746; 85025; 96127; 99212

== ENCOUNTER 2025-03-21 09:27 | Outpatient (AMB) | payer OTHER, SELFPAY ==
[2025-03-21 09:37] VITALS: BP 120/72; PULSE 65; O2SAT 98; BMI 19.4
--- NOTE | 2025-03-21 09:37 | A.OFFPC_ITS ---
Vital Signs 03/21/25 09:37 Height 5 ft 5 in Weight 116 lb 6 oz BMI 19.4 BP 120/72 Blood Pressure Location Lt brachial Position Sitting Pulse 65 Pulse Source Pulse Oximeter Pulse Oximetry (%) 98 Oxygen Delivery Method Room Air Intake Visit Reasons: hyperlipidemia, anemia - see comments Human Resources Vice President Required: No Accompanied by: Self / Same As Patient Allergies iron Adverse Reaction (Severe, Verified 03/21/25 10:09) abdominal pain and severe constipation ferrous fumarate Adverse Reaction (Intermediate, Verified 03/21/25 10:09) Constipation acetaminophen [From TYLENOL] Adverse Reaction (Unknown, Verified 03/21/25 10:09) Liver problems Medication List - Last Reconciled 03/21/25 by Scar Espinoza MD baclofen 20 mg PO BEDTIME 30 days cholecalciferol (vitamin D3) 50 mcg PO DAILY 90 days cyanocobalamin (vitamin B-12) 1,000 mcg PO DAILY ipratropium-albuterol 20-100 mcg/actuation (Combivent Respimat) 1 puff inhalation QID PRN omeprazole 20 mg PO BID propranolol 10 mg PO BID ropinirole 0.5 mg PO BEDTIME 30 days rosuvastatin 5 mg PO DAILY 90 days Tobacco use date assessed: 03/21/25 Fall risk assessment: No Falls in past year Last assessed Fall Risk: 03/21/25 Dental Screening Dental Screen Date: 03/21/25 Did you have a dental visit in the last 12 months?: Yes Did you have a dental problem in the last 6 months where you did not have access to dental care?: No Was dental information given to patient?: Patient has dentist HPI hyperlipidemia, anemia - see comments HPI Details Patient comes in today for his follow up visit States that he has been experiencing recurrent numbness and pain in his left arm for the past couple of weeks Also notes (+) on and off pain in the left shoulder at times He denies any recent injury or trauma to his left shoulder States that he feels okay otherwise He denies any headaches or dizziness Denies any chest pains, no shortness of breath No nausea/vomiting, no abdominal pain No change in bowel habits noted He is again not able to get his follow-up labs done prior to his appointment today [facility] Medical History Benign essential hypertension Pure hypercholesterolemia COPD (chronic obstructive pulmonary disease) Nicotine dependence, cigarettes, uncomplicated Iron deficiency anemia Vitamin D deficiency Duodenal arteriovenous malformation Gastritis Tubular adenoma of colon (~2020) Left inguinal pain Surgical History History of elbow surgery History of left inguinal hernia repair (~2009) History of esophagogastroduodenoscopy (EGD) (~2020) History of colonoscopy (~2020) Family History Sister HTN (hypertension) Social History Household Members: Family Housing: [facility] Are you a primary care tech to a significant other at home: No Do you presently have visiting nurse or other home services: No Alcohol intake: former Patient Tobacco Use Status: Current everyday Tobacco user Tobacco use type: Cigarette Cigarette Packs Per Day: 0.5 Years Smoked: (onset 14yo, 1/2ppd x 53yrs, 25+PYH) e-Cigarette/Vaping Use: Never Used service: No Current occupational status: disabled Cognitive needs: No Hearing needs: No Vision needs: No Questionnaire PHQ-9 Over the last 2 weeks, how often have you been bothered by any of the following problems? 1. Little interest or pleasure in doing things: not at all 2. Feeling down, depressed, or hopeless: not at all 3. Trouble falling or staying asleep, or sleeping too much: not at all 4. Feeling tired or having little energy: not at all 5. Poor appetite or overeating: not at all 6. Feeling bad about yourself - or that you are a failure or have let yourself or your family down: not at all 7. Trouble concentrating on things, such as reading the newspaper or watching television: not at all 8. Moving or speaking so slowly that other people could have noticed. Or the opposite - being so fidgety or restless that you have been moving around a lot more than usual: not at all 9. Thoughts that you would be better off or of hurting yourself in some way: not at all Total score: 0 Depression Screening Interpretation: Negative Depression Screening Done: Yes 97560 - PHQ-9 Billing: Yes Source: Developed by Drs. Abdirashid Nava, Cara Benson, Qamar Kan and colleagues, with an educational atif from [employer]. Thrive Questionnaire Date Thrive assessed: 03/21/25 I am a: Patient What is your living situation today?: I choose not to answer this question Within the past 12 months, did the food you bought not last and you didn't have the money to get more?: I choose not to answer this question Within the past 12 months, did you worry whether your food would run out before you got money to buy more?: I choose not to answer this question Do you have trouble paying for medicines?: I choose not to answer this question Do you have trouble getting transportation to medical appointments?: I choose not to answer this question Do you have trouble paying your heating and electricity bill?: I choose not to answer this question Do you have trouble taking care of your child, family member or friend?: I choose not to answer this question Do you have trouble with day-to-day activities such as bathing, preparing meals, shopping, managing finances, etc.?: I choose not to answer this question Are you currently unemployed and looking for a job?: I choose not to answer this question Are you interested in more education?: I choose not to answer this question Please select the resources that you would like help with: None Currently or been in a relationship where the following occur: I choose not to answer THRIVE Score: 0 AUDIT C Alcohol Use Questionnaire (AUDIT-C) 1. How often do you have a drink containing alcohol?: Never 3. How often do you have six or more drinks on one occasion?: Never Total Score: 0 Score Reviewed/Action Taken: Yes CHACHO-7 AMB Questionnaire CHACHO-7 Date CHACHO - 7 assessed: 03/21/25 Feeling nervous, anxious, or on edge: 0 = Not at all Not being able to stop or control worryin = Not at all Worrying too much about different things: 0 = Not at all Trouble relaxin = Not at all Being so restless that it is hard to sit still: 0 = Not at all Becoming easily annoyed or irritable: 0 = Not at all Feeling afraid as if something awful might happen: 0 = Not at all Total CHACHO-7 score (0-4 normal; 5-9 mild; 10-14 moderate; 15-21 severe): 0 Source: Developed by Drs. Abdirashid Nava, Cara Benson, Qamar Kan and colleagues, with an educational atif from [employer]. Review of Systems Const Denies chills, Reports difficulty sleeping, Denies fatigue, Denies fever(s) and Denies headache(s) ENT Denies dysphagia, Denies dizziness, Denies otalgia, Denies headache(s), Denies neck pain, Denies odynophagia and Denies sore throat Card Denies chest pain, Denies irregular heart rhythm, Denies palpitations and Denies dyspnea Resp Denies chest congestion, Denies cough and Denies dyspnea GI Denies abdominal pain, Denies constipation, Denies dysphagia, Denies heartburn, Denies diarrhea, Denies nausea, Denies odynophagia and Denies vomiting Denies difficulty urinating, Denies dysuria, Reports nocturia and Reports urinary frequency Musc Denies back pain, Reports arthralgias (on and off in the left shoulder lately), Reports muscle cramps (in both legs but especially in toes of both feet, worse at night), Denies neck pain and Reports numbness (on and off in the left arm) Skin/Breast Denies rash Neuro Denies dizziness, Denies headache(s), Reports numbness (on and off in the left arm) and Denies paresthesias Endo Denies fatigue and Denies palpitations Physical exam (Primary Care) Vital Signs: Last Vital Signs Pulse 65 03/21/25 09:37 BP 120/72 03/21/25 09:37 Pulse Ox 98 03/21/25 09:37 Oxygen Delivery Method Room Air 03/21/25 09:37 BMI result Body Mass Index 19.4 Tobacco/Smoking Status: Tobacco use Status Tobacco use date assessed 03/21/25 03/21/25 09:43 Patient Tobacco Use Status Current everyday Tobacco 03/21/25 09:43 Tobacco use type Cigarette 03/21/25 09:43 e-Cigarette/Vaping Use Never Used 03/21/25 09:43 PHQ-9: PHQ-9 Score PHQ-9: Total score 0 03/21/25 12:24 Depression Screening Interpretation: Negative Thrive Assessment: Date of Thrive Assessment Date Thrive assessed 03/21/25 03/21/25 09:43 Currently or been in a relationship where the following occur: I choose not to answer Const General: no acute distress and alert HENMT Ears: TM's normal bilaterally and EAC's normal Throat: Yes posterior oropharynx normal and Yes tonsils normal (no TP congestion) Neck Neck: Yes supple and No lymphadenopathy Thyroid: Thyroid normal Resp Auscultation: clear to auscultation bilaterally, no rales and no wheezes Cardio Rate: regular rate Rhythm: regular rhythm Heart sounds: no murmurs GI Palpation (GI): Soft to palpation and nontender Auscultation: normal bowel sounds General: Yes no CVA tenderness Back/Spine/Pelvis Back: no CVA tenderness Thoracic/Lumbar Spine: No lumbar spinal tenderness Skin Rashes: no rashes Extrem General: Yes no clubbing, cyanosis or edema Left upper extremity: shoulder/upper arm Details: tenderness Location: of the A- C joint and normal ROM; no swelling Results Reviewed Results Reviewed: Laboratory Tests 01/27/25 09:51 WBC 4.9 Hgb 10.7 L Hct 33.7 L Plt Count 218 Coding Level of Care Code Est Pt Level 4 (72994) Diagnoses Iron deficiency anemia, unspecified iron deficiency anemia type D50.9 Iron deficiency anemia type: unspecified iron deficiency Bilateral leg cramps R25.2 Chronic gastritis without bleeding, unspecified gastritis type K29.50 Chronicity: chronic Gastritis bleeding: without bleeding Gastritis type: unspecified gastritis Duodenal arteriovenous malformation K31.819 Pure hypercholesterolemia E78.00 Benign essential hypertension I10 Chronic obstructive pulmonary disease, unspecified COPD type J44.9 COPD type: unspecified COPD Left shoulder pain, unspecified chronicity M25.512 Chronicity: unspecified Vitamin D deficiency E55.9 Smoker F17.200 Additional Codes PHQ-9 - 22525 - PHQ-9 Billing: Yes ([id number]) Assessment & Plan Assessment & Plan (1) Iron deficiency anemia: Code(s): D50.9 - Iron deficiency anemia, unspecified Category: Medical Qualifiers: Iron deficiency anemia type: unspecified iron deficiency Qualified Code(s): D50.9 - Iron deficiency anemia, unspecified Plan: His H/H was most recently at 10.7/33.7 last month He has been receiving IV iron infusion when needed as he is unable to tolerate oral iron tablets/supplements due to abdominal pain and severe constipation Will have him go and get his CBC rechecked VANESSA Follow up with hematology (Dr. Ventura) as scheduled (2) Bilateral leg cramps: Code(s): R25.2 - Cramp and spasm Category: Medical Plan: He was on Baclofen previously but he states that they only helped temporarily and partially Have advised patient that anemia is one of the conditions that can contribute to leg cramping and pain, especially at night He was then started on a trial of Ropinirole 0.5 mg Q HS at his last visit - patient states that this has helped better than Baclofen did - (?) possible RLS (3) Gastritis: Comment: (EGD in September 2021 revealed (+) gastric erosion and erythema) Code(s): K29.70 - Gastritis, unspecified, without bleeding Category: Medical Qualifiers: Chronicity: chronic Gastritis bleeding: without bleeding Gastritis type: unspecified gastritis Qualified Code(s): K29.50 - Unspecified chronic gastritis without bleeding Plan: Continue Omeprazole 20 mg BID Follow up with GI as scheduled (4) Duodenal arteriovenous malformation: Comment: (seen on EGD done 09/2021 - s/p ablation with APC) Code(s): K31.819 - Angiodysplasia of stomach and duodenum without bleeding Category: Medical Plan: (+) Hx of GI bleed due to AVMs He's had no issues with GI bleeding for several months now Follow up with GI as scheduled (5) Pure hypercholesterolemia: Code(s): E78.00 - Pure hypercholesterolemia, unspecified Category: Medical Plan: Will have patient go and get his labs done VANESSA Reinforced low cholesterol diet Continue Rosuvastatin 5 mg QD Will recheck his fasting lipids and labs again in 3 months for follow up (6) Benign essential hypertension: Code(s): I10 - Essential (primary) hypertension Category: Medical Plan: Reinforced low sodium diet - goal is systolic BP of 120 to 130 mm or less Continue Propranolol 10 mg BID although Propranolol was initially prescribed more for his liver (portal hypertension) than his BP (7) COPD (chronic obstructive pulmonary disease): Comment: CT lung (screening) in 09/2023 revealed (+) findings of mild emphysema Code(s): J44.9 - Chronic obstructive pulmonary disease, unspecified Category: Medical Qualifiers: COPD type: unspecified COPD Qualified Code(s): J44.9 - Chronic obstructive pulmonary disease, unspecified Plan: Currently appears stable CT lung scan in September 2023 revealed (+) findings of mild emphysema Continue Combivent Respimat 20-100 mcg 1 inhalation QID (8) Left shoulder pain: Code(s): M25.512 - Pain in left shoulder Category: Medical Qualifiers: Chronicity: unspecified Qualified Code(s): M25.512 - Pain in left shoulder Plan: Will send patient for x-rays of the left shoulder for further evaluation (9) Vitamin D deficiency: Code(s): E55.9 - Vitamin D deficiency, unspecified Category: Medical Plan: Continue Vitamin D3 2000 units QD (10) Smoker: Code(s): F17.200 - Nicotine dependence, unspecified, uncomplicated Category: Social Hx Plan: Patient is counseled again on smoking cessation Plan Follow up in 3 months Orders: Orders XR shoulder LT min 2V 03/21/25 M25.512 - Pain in left shoulder Complete Blood Count Auto Diff 3 Months D64.9 - Anemia, unspecified Comprehensive [place]. Panel Fast 3 Months E78.00 - Pure hypercholesterolemia, unspecified Lipid Panel 3 Months E78.00 - Pure hypercholesterolemia, unspecified
--- OUTSIDE RECORDS SUMMARY | 2025-03-21 10:14 | XMS_ITS | Clinical Summary ---
Author Organization [employer] Address [address] [facility] 7t [place] [address] Care Team Providers Care Inspector Scales Name Role Phone Unavailable Primary Care Provider [...] ?? Austen GRIMM et al. RAMON. 2013;310(19): 0482-0883 ?? (http://education.[employer].com/faq/FGZ188) Non-HDL Cholesterol 145(H) <130 mg/dL (calc) [facility] Comment: For patients with diabetes plus 1 major ASCVD risk ?? factor, treating to a non-HDL-C goal of <100 mg/dL ?? (LDL-C of <70 mg/dL) is considered a therapeutic ?? option. Triglycerides 154(H) <150 mg/dL [facility] 03/29/2022 us Demetris Romero MD LAB BLOOD ORDERABLES Final R esult [facility] [address] from Last 3 Months or Most Recently Relevant to Health Maintenance
--- OUTSIDE RECORDS SUMMARY | 2025-03-21 10:14 | XMS_ITS | Encounter Summary ---
Author Organization [employer] Address [address] [facility] [address]t [place] [address] Care Team Providers Care Bisque Brusher Name Role Phone Unavailable Primary Care Provider Unavailabl e Reason for Visit * Reason Comments Med Refill Encounter Details Date Type Department Care Team (Late st Contact Info) Description 06/15/2023 Refill [facility] MEDICINE [address] [place] [address] Leyla Cruz FNP [address] [place], [place] [phone] Gastroesophageal reflux disease, unspecified whether esophagitis present [...]
--- OUTSIDE RECORDS SUMMARY | 2025-03-21 10:14 | XMS_ITS | Encounter Summary ---
Author Organization [employer] Address [address] [facility] 7t [place] [address] Care Team Providers Care Butcher Or Smallgoods Maker Name Role Phone Unavailable Primary Care Provider Unavailabl e Reason for Visit * Reason Comments Med Refill Encounter Details Date Type Department Care Team (Late st Contact Info) Description 06/28/2023 Refill [facility] MEDICINE [address] [place] [address] Leyla Cruz FNP [address] [place] [address] Social History Tobacco Use Types Packs/Day Years [...]
--- OUTSIDE RECORDS SUMMARY | 2025-03-21 10:14 | XMS_ITS | Encounter Summary ---
Author Organization [employer] Address [address] [facility] 7t [place] [address] Care Team Providers Care Inshore Undersea Warfare Officer Name Role Phone Leyla Cruz Primary Care Provider [phone] Jagdish Reyna Primary Care Provider Unavail able Encounter Details Date Type Department Care Team (Late st Contact Info) Description 03/21/2023 Orders Only [facility] CHC MED & PEDS [address] [place], [place] [phone] Debbie Melissa LPN Social History Tobacco Use [...] on filedocumented in this encounter Care Teams Inshore Undersea Warfare Officer Relationship Specialty Start Date End Date Leyla Cruz FNP [address] [place] [address] PCP - General Family Medicine 10/19/22 04/20/23 Jagdish Reyna AGNP [address] [place] [address] PCP - General Family Medicine 04/21/23 06/13/23 documented as of this encounter
== END 2025-03-21 10:19 | disposition home or self-care (01) ==
LOC: HO.HMCH 09:28
PROVIDERS: PCP Internal Medicine; Visit Provider Internal Medicine
DX: D50.9 Iron deficiency anemia, unspecified (principal); J44.9 Chronic obstructive pulmonary disease, unspecified; R25.2 Cramp and spasm; K29.50 Unspecified chronic gastritis without bleeding; K31.819 Angiodysplasia of stomach and duodenum without bleeding; E78.00 Pure hypercholesterolemia, unspecified; I10 Essential (primary) hypertension; M25.512 Pain in left shoulder; E55.9 Vitamin D deficiency, unspecified; F17.200 Nicotine dependence, unspecified, uncomplicated

== ENCOUNTER → 2025-03-21 10:45 | Outpatient (BNV) | payer OTHER, SELFPAY | PROVIDERS: PCP Internal Medicine; Visit Provider Radiology Diagnostic Radiology | DX: M19.012 Primary osteoarthritis, left shoulder (principal) | CPT/HCPCS: 73030 ==

== ENCOUNTER 2025-07-23 09:00 | Outpatient (RCR) | payer OTHER, SELFPAY ==
[2025-06-04 09:49] VITALS: BP 113/55; PULSE 59; RESP 16; TEMP 36.3; O2SAT 100
[2025-06-11 09:52] VITALS: BP 122/59; PULSE 55; RESP 16; TEMP 36.7; O2SAT 100
[2025-06-18 08:50] VITALS: BP 128/63; PULSE 56; RESP 16; TEMP 36.6; O2SAT 100
[2025-06-18] MEDS: 0.9 % Sodium Chloride Flush 10 ML SYRINGE 5 ML IVFLUSH (09:26)
[2025-06-25 10:16] VITALS: BP 136/66; PULSE 70; RESP 16; TEMP 36.6; O2SAT 100
[2025-07-03 08:40] VITALS: BP 122/63; PULSE 52; RESP 16; TEMP 36.7; O2SAT 100
[2025-07-10 08:33] VITALS: BP 145/81; PULSE 50; RESP 16; TEMP 36.2; O2SAT 100
[2025-07-17 08:31] VITALS: BP 141/78; PULSE 60; RESP 16; TEMP 36.2; O2SAT 100
[2025-07-23 09:29] VITALS: BP 133/68; PULSE 55; RESP 16; TEMP 36.9; O2SAT 100
== END 2025-07-23 10:10 | disposition home or self-care (01) ==
LOC: HO.INF 09:00
PROVIDERS: Visit Provider Internal Medicine
DX: D50.9 Iron deficiency anemia, unspecified (principal)
CPT/HCPCS: 90471; 96365; 96374; J1756

== ENCOUNTER 2025-07-25 09:47 | Outpatient (AMB) | payer OTHER, SELFPAY ==
--- NOTE | 2025-07-25 10:02 | A.OFFPC_ITS ---
Vital Signs 07/25/25 10:03 Height 5 ft 5 in Weight 115 lb 8 oz BMI 19.2 BP 118/76 Blood Pressure Location Lt brachial Position Sitting Pulse 57 Pulse Source Pulse Oximeter Pulse Oximetry (%) 99 Oxygen Delivery Method Room Air Intake Visit Reasons: 3mth f/u Nurse Technician Required: No Accompanied by: Self / Same As Patient Allergies iron Adverse Reaction (Severe, Verified 07/25/25 10:42) abdominal pain and severe constipation ferrous fumarate Adverse Reaction (Intermediate, Verified 07/25/25 10:42) Constipation acetaminophen (From TYLENOL) Adverse Reaction (Unknown, Verified 07/25/25 10:42) Liver problems Medication List - Last Reconciled 07/25/25 by Scar Espinoza MD baclofen 20 mg PO BEDTIME 30 days cholecalciferol (vitamin D3) 50 mcg PO DAILY 90 days cyanocobalamin (vitamin B-12) 1,000 mcg PO DAILY ipratropium-albuterol 20-100 mcg/actuation (Combivent Respimat) 1 puff inhalation QID PRN omeprazole 20 mg PO BID propranolol 10 mg PO BID ropinirole 0.5 mg PO BEDTIME 30 days rosuvastatin 5 mg PO DAILY 90 days Tobacco use date assessed: 07/25/25 Fall risk assessment: No Falls in past year Last assessed Fall Risk: 03/21/25 Dental Screening Dental Screen Date: 07/25/25 Did you have a dental visit in the last 12 months?: Yes Did you have a dental problem in the last 6 months where you did not have access to dental care?: No Was dental information given to patient?: Patient has dentist HPI 3mth f/u HPI Details Patient comes in today for his follow up visit States that he is still experiencing frequent / recurrent pains in both shoulders and would like to know how his left shoulder x-rays done a few months ago came out He has also been reportedly experiencing increased pain and stiffness over his right lower back lately - feels that his low back pain is worse in the morning and it takes him a while before he can get up and out of bed in the morning due to his increased right lower back stiffness and pain He was seen by hematology a couple of months ago for his anemia and has been receiving IV iron infusion weekly since - states that he completed his last done a couple of days ago He denies any headaches or dizziness Denies any chest pains, no increased SOB No nausea/vomiting, no abdominal pain No change in bowel habits noted He was not able to get his follow up labs done prior to coming in today - states that he has not yet eaten anything this morning and can go and get them done as soon as he leaves the office today [facility] Medical History Benign essential hypertension Pure hypercholesterolemia COPD (chronic obstructive pulmonary disease) Nicotine dependence, cigarettes, uncomplicated Iron deficiency anemia Vitamin D deficiency Duodenal arteriovenous malformation Gastritis Tubular adenoma of colon (~2020) Left inguinal pain Surgical History History of elbow surgery History of left inguinal hernia repair (~2009) History of esophagogastroduodenoscopy (EGD) (~2020) History of colonoscopy (~2020) Family History Sister HTN (hypertension) Social History Household Members: [facility] Are you a primary respiratory care assistant to a significant other at home: No Do you presently have visiting nurse or other home services: No Alcohol intake: former Patient Tobacco Use Status: Current everyday Tobacco user Tobacco use type: Cigarette Cigarette Packs Per Day: 0.5 Years Smoked: (onset 14yo, 1/2ppd x 53yrs, 25+PYH) e-Cigarette/Vaping Use: Never Used service: No Current occupational status: disabled Cognitive needs: No Hearing needs: No Vision needs: No Questionnaire PHQ-9 Over the last 2 weeks, how often have you been bothered by any of the following problems? 1. Little interest or pleasure in doing things: not at all 2. Feeling down, depressed, or hopeless: not at all 3. Trouble falling or staying asleep, or sleeping too much: not at all 4. Feeling tired or having little energy: not at all 5. Poor appetite or overeating: not at all 6. Feeling bad about yourself - or that you are a failure or have let yourself or your family down: not at all 7. Trouble concentrating on things, such as reading the newspaper or watching television: not at all 8. Moving or speaking so slowly that other people could have noticed. Or the opposite - being so fidgety or restless that you have been moving around a lot more than usual: not at all 9. Thoughts that you would be better off or of hurting yourself in some way: not at all Total score: 0 Depression Screening Interpretation: Negative Depression Screening Done: Yes 42565 - PHQ-9 Billing: Yes Source: Developed by Drs. Abdirashid Nava, Cara Benson, Qamar Kan and colleagues, with an educational atif from [employer]. Thrive Questionnaire Date Thrive assessed: 07/25/25 I am a: Patient What is your living situation today?: I choose not to answer this question Within the past 12 months, did the food you bought not last and you didn't have the money to get more?: I choose not to answer this question Within the past 12 months, did you worry whether your food would run out before you got money to buy more?: I choose not to answer this question Do you have trouble paying for medicines?: I choose not to answer this question Do you have trouble getting transportation to medical appointments?: I choose not to answer this question Do you have trouble paying your heating and electricity bill?: I choose not to answer this question Do you have trouble taking care of your child, family member or friend?: I choose not to answer this question Do you have trouble with day-to-day activities such as bathing, preparing meals, shopping, managing finances, etc.?: I choose not to answer this question Are you currently unemployed and looking for a job?: I choose not to answer this question Are you interested in more education?: I choose not to answer this question Please select the resources that you would like help with: None Currently or been in a relationship where the following occur: I choose not to answer THRIVE Score: 0 AUDIT C Alcohol Use Questionnaire (AUDIT-C) 1. How often do you have a drink containing alcohol?: Never 3. How often do you have six or more drinks on one occasion?: Never Total Score: 0 Score Reviewed/Action Taken: Yes CHACHO-7 AMB Questionnaire CHACHO-7 Date CHACHO - 7 assessed: 07/25/25 Feeling nervous, anxious, or on edge: 0 = Not at all Not being able to stop or control worryin = Not at all Worrying too much about different things: 0 = Not at all Trouble relaxin = Not at all Being so restless that it is hard to sit still: 0 = Not at all Becoming easily annoyed or irritable: 0 = Not at all Feeling afraid as if something awful might happen: 0 = Not at all Total CHACHO-7 score (0-4 normal; 5-9 mild; 10-14 moderate; 15-21 severe): 0 Source: Developed by Drs. Abdirashid Nava, Cara Benson, Qamar Kan and colleagues, with an educational atif from [employer]. Review of Systems Const Denies chills, Reports difficulty sleeping, Denies fatigue, Denies fever(s) and Denies headache(s) ENT Denies dysphagia, Denies dizziness, Denies otalgia, Denies headache(s), Denies neck pain, Denies odynophagia and Denies sore throat Card Denies chest pain, Denies irregular heart rhythm, Denies palpitations and Denies dyspnea Resp Denies chest congestion, Denies cough and Denies dyspnea GI Denies abdominal pain, Denies constipation, Denies dysphagia, Denies heartburn, Denies diarrhea, Denies nausea, Denies odynophagia and Denies vomiting Denies difficulty urinating, Denies dysuria, Reports nocturia and Reports urinary frequency Musc Reports back pain (over the right lower back lately; pain radiates down back of leg at times), Reports arthralgias (on and off in the both shoulders ), Reports muscle cramps (in both legs but especially in toes of both feet, worse at night), Denies neck pain, Reports numbness (on and off in the left arm) and Reports stiffness (over the right lower back and in both shoulders) Skin/Breast Denies rash Neuro Denies dizziness, Denies headache(s), Reports numbness (on and off in the left arm) and Denies paresthesias Endo Denies fatigue and Denies palpitations Physical exam (Primary Care) Vital Signs: Last Vital Signs Pulse 57 07/25/25 10:03 BP 118/76 07/25/25 10:03 Pulse Ox 99 07/25/25 10:03 Oxygen Delivery Method Room Air 07/25/25 10:03 BMI result Body Mass Index 19.2 Tobacco/Smoking Status: Tobacco use Status Tobacco use date assessed 07/25/25 07/25/25 10:10 Patient Tobacco Use Status Current everyday Tobacco 07/25/25 10:10 Tobacco use type Cigarette 07/25/25 10:10 e-Cigarette/Vaping Use Never Used 07/25/25 10:10 PHQ-9: PHQ-9 Score PHQ-9: Total score 0 07/25/25 10:55 Depression Screening Interpretation: Negative Thrive Assessment: Date of Thrive Assessment Date Thrive assessed 07/25/25 07/25/25 10:10 Currently or been in a relationship where the following occur: I choose not to answer Const General: no acute distress and alert HENMT Ears: TM's normal bilaterally and EAC's normal Throat: Yes posterior oropharynx normal and Yes tonsils normal (no TP congestion) Neck Neck: Yes supple and No lymphadenopathy Thyroid: Thyroid normal Resp Auscultation: clear to auscultation bilaterally, no rales and no wheezes Cardio Rate: regular rate Rhythm: regular rhythm Heart sounds: no murmurs GI Palpation (GI): Soft to palpation and nontender Auscultation: normal bowel sounds General: Yes no CVA tenderness Back/Spine/Pelvis Back: no CVA tenderness Thoracic/Lumbar Spine: paraspinal muscle tenderness on the right in the upper lumbar, in the mid lumbar and in the lower lumbar and lumbar spinal tenderness Skin Rashes: no rashes Extrem General: Yes no clubbing, cyanosis or edema Right upper extremity: shoulder/upper arm Details: tenderness Location: of the A-C joint Left upper extremity: shoulder/upper arm Details: tenderness Location: of the A- C joint and normal ROM; no swelling Coding Level of Care Code Est Pt Level 4 (36578) Diagnoses Iron deficiency anemia, unspecified iron deficiency anemia type D50.9 Iron deficiency anemia type: unspecified iron deficiency Bilateral leg cramps R25.2 Chronic gastritis without bleeding, unspecified gastritis type K29.50 Chronicity: chronic Gastritis bleeding: without bleeding Gastritis type: unspecified gastritis Duodenal arteriovenous malformation K31.819 Pure hypercholesterolemia E78.00 Benign essential hypertension I10 Chronic obstructive pulmonary disease, unspecified COPD type J44.9 COPD type: unspecified COPD Left shoulder pain, unspecified chronicity M25.512 Chronicity: unspecified Right shoulder pain, unspecified chronicity M25.511 Chronicity: unspecified Right low back pain, unspecified chronicity, unspecified whether sciatica present M54.50 Chronicity: unspecified Sciatica presence: unspecified whether sciatica present Vitamin D deficiency E55.9 Smoker F17.200 Additional Codes PHQ-9 - 94075 - PHQ-9 Billing: Yes ([id number]) Assessment & Plan Assessment & Plan (1) Iron deficiency anemia: Code(s): D50.9 - Iron deficiency anemia, unspecified Category: Medical Qualifiers: Iron deficiency anemia type: unspecified iron deficiency Qualified Code(s): D50.9 - Iron deficiency anemia, unspecified Plan: His H/H was most recently at . a couple of months ago He has been receiving IV iron infusion when needed as he is unable to tolerate oral iron tablets/supplements due to abdominal pain and severe constipation Will have him go and get his CBC rechecked VANESSA Follow up with hematology (Dr. Ventura) as scheduled (2) Bilateral leg cramps: Code(s): R25.2 - Cramp and spasm Category: Medical Plan: He was on Baclofen previously but he states that they only helped temporarily and partially Have advised patient that anemia is one of the conditions that can contribute to leg cramping and pain, especially at night He was then started on a trial of Ropinirole, which he states helped better than Baclofen did - (?) possible RLS Continue Ropinirole 0.5 mg Q H-S- (3) Gastritis: Comment: (EGD in September 2021 revealed (+) gastric erosion and erythema) Code(s): K29.70 - Gastritis, unspecified, without bleeding Category: Medical Qualifiers: Chronicity: chronic Gastritis bleeding: without bleeding Gastritis type: unspecified gastritis Qualified Code(s): K29.50 - Unspecified chronic gastritis without bleeding Plan: Continue Omeprazole 20 mg BID Follow up with GI as scheduled (4) Duodenal arteriovenous malformation: Comment: (seen on EGD done 09/2021 - s/p ablation with APC) Code(s): K31.819 - Angiodysplasia of stomach and duodenum without bleeding Category: Medical Plan: (+) Hx of GI bleed due to AVMs He's had no issues with GI bleeding for several months now Follow up with GI as scheduled (5) Pure hypercholesterolemia: Code(s): E78.00 - Pure hypercholesterolemia, unspecified Category: Medical Plan: Will have patient go and get his follow up labs done VANESSA Reinforced low cholesterol diet Continue Rosuvastatin 5 mg QD Will recheck his fasting lipids and labs again in 3 months for follow up (6) Benign essential hypertension: Code(s): I10 - Essential (primary) hypertension Category: Medical Plan: Reinforced low sodium diet - goal is systolic BP of 120 to 130 mm or less Continue Propranolol 10 mg BID although Propranolol was initially prescribed more for his liver (portal hypertension) than his BP (7) COPD (chronic obstructive pulmonary disease): Comment: CT lung (screening) in 09/2023 revealed (+) findings of mild emphysema Code(s): J44.9 - Chronic obstructive pulmonary disease, unspecified Category: Medical Qualifiers: COPD type: unspecified COPD Qualified Code(s): J44.9 - Chronic obstructive pulmonary disease, unspecified Plan: Currently appears controlled CT lung scan in September 2023 revealed (+) findings of mild emphysema Continue Combivent Respimat 20-100 mcg 1 inhalation QID (8) Left shoulder pain: Code(s): M25.512 - Pain in left shoulder Category: Medical Qualifiers: Chronicity: unspecified Qualified Code(s): M25.512 - Pain in left shoulder Plan: X-rays of the left shoulder done back in March 2025 revealed findings of mild to moderate narrowing of the AC joint (9) Right shoulder pain: Code(s): M25.511 - Pain in right shoulder Category: Medical Qualifiers: Chronicity: unspecified Qualified Code(s): M25.511 - Pain in right shoulder Plan: Will send patient for x-rays of the right shoulder for further evaluation (10) Right low back pain: Code(s): M54.50 - Low back pain, unspecified Category: Medical Qualifiers: Chronicity: unspecified Sciatica presence: unspecified whether sciatica present Qualified Code(s): M54.50 - Low back pain, unspecified Plan: Will send him for repeat lumbar spine x-rays as well for further evaluation (11) Vitamin D deficiency: Code(s): E55.9 - Vitamin D deficiency, unspecified Category: Medical Plan: Continue Vitamin D3 2000 units QD (12) Smoker: Code(s): F17.200 - Nicotine dependence, unspecified, uncomplicated Category: Social Hx Plan: Patient is counseled again on smoking cessation Plan Follow up in 3 months Orders: Orders XR lumbar spine 2-3V 07/25/25 M54.50 - Low back pain, unspecified XR shoulder RT min 2V 07/25/25 M25.511 - Pain in right shoulder TSH reflex Free T4 07/25/25 E78.00 - Pure hypercholesterolemia, unspecified UA CC w/rflx Micro + Cult 07/25/25 R30.0 - Dysuria Vitamin D 25-OH Total 07/25/25 E55.9 - Vitamin D deficiency, unspecified Comprehensive [place]. Panel Fast 3 Months E78.00 - Pure hypercholesterolemia, unspecified Lipid Panel 3 Months E78.00 - Pure hypercholesterolemia, unspecified
[2025-07-25 10:03] VITALS: BP 118/76; PULSE 57; O2SAT 99; BMI 19.2
--- OUTSIDE RECORDS SUMMARY | 2025-07-25 10:35 | XMS_ITS | Clinical Summary ---
Author Organization [employer] Address [address] [facility] [address] [place] [address] Care Team Providers Care Child Welfare Consultant Name Role Phone Unavailable Primary Care Provider Unavailabl e Medications omeprazole (PriLOSEC) [address] capsuleIndicatio ns:Gastroesophag eal reflux disease, unspecified whether esophagitis [...] 04/01/2021, Additional history exists Influenza Vaccine (#1) 2025 2, 09/08/2021, 10/22/2020, Additional history exists Lipid [...] patient's age to complete this topic Meningococcal B Vaccine Aged Out No l onger eligible based on patient's age to complete [...] LAB SYSTEM LDL Cholesterol 118(H) mg/dL (calc) [facility] Comment: Reference range: <100 Desirable range <100 mg/dL for primary prevention; <70 mg/dL for patients with CHD or diabetic patients with > or = 2 CHD risk factors. LDL-C is now calculated using the Austen-Romel calculation, which is a validated novel method providing better accuracy than the Friedewald equation in the estimation of LDL-C. Austen GRIMM et al. RAMON. 2013;310(19): 9074-1254 (http://education.[employer].com/faq/YTZ221) Non-HDL Cholesterol 145(H) <130 mg/dL (calc) [facility] Comment: For patients with diabetes plus 1 major ASCVD risk factor, treating to a non-HDL-C goal of <100 mg/dL (LDL-C of <70 mg/dL) is considered a therapeutic option. Triglycerides 154(H) <150 mg/dL [facility] 03/29/2022 us Demetris Romero MD LAB BLOOD ORDERABLES Final R esult [facility] [address] from Last 3 Months or Most Recently Relevant to Health Maintenance
--- OUTSIDE RECORDS SUMMARY | 2025-07-25 10:36 | XMS_ITS | Encounter Summary ---
Author Organization [employer] Address [address] [facility] [address] [place] [address] Care Team Providers Care Marine Electronics Technician Name Role Phone Unavailable Primary Care Provider Unavailabl e Reason for Visit * Reason Comments Med Refill Encounter Details Date Type Department Care Team (Late st Contact Info) Description 06/15/2023 Refill [facility] [address] [place] [address] Leyla Cruz FNP [address] [place], [place] [phone] Gastroesophageal reflux disease, unspecified whether esophagitis present [...]
--- OUTSIDE RECORDS SUMMARY | 2025-07-25 10:36 | XMS_ITS | Encounter Summary ---
Author Organization [employer] Address [address] [facility] [address] [place] [address] Care Team Providers Care Interface Engineer Name Role Phone Leyla Cruz Primary Care Provider [phone] Jagdish Reyna Primary Care Provider Unavail able Encounter Details Date Type Department Care Team (Late st Contact Info) Description 03/21/2023 Orders Only [facility] [address] [place], [place] [phone] Debbie Melissa LPN Social History Tobacco Use [...] on filedocumented in this encounter Care Teams Interface Engineer Relationship Specialty Start Date End Date Leyla Cruz FNP [address] [place] [address] PCP - General Family Medicine 10/19/22 04/20/23 Jagdish Reyna AGNP [address] [place] [address] PCP - General Family Medicine 04/21/23 06/13/23 documented as of this encounter
--- OUTSIDE RECORDS SUMMARY | 2025-07-25 10:36 | XMS_ITS | Patient Health Record ---
Author Organization [facility] Address [address] [place] [address] Care Team Providers Care Section Hand Helper Name Role Phone Abdirashid Baird Unavailable [phone] Reason For Referral No Information Plan Of Treatment No Information
--- OUTSIDE RECORDS SUMMARY | 2025-07-25 10:36 | XMS_ITS | Encounter Summary ---
Author Organization [employer] Address [address] [facility] [address] [place] [address] Care Team Providers Care Director Of Loss Prevention Name Role Phone Unavailable Primary Care Provider Unavailabl e Reason for Visit * Reason Comments Med Refill Encounter Details Date Type Department Care Team (Late st Contact Info) Description 06/28/2023 Refill [facility] [address] [place] [address] Leyla Cruz FNP [address] [place], [place] [phone] Social History Tobacco Use Types Packs/Day Years [...]
== END 2025-07-25 10:54 | disposition home or self-care (01) ==
LOC: HO.HMCH 09:48
PROVIDERS: PCP Internal Medicine; Visit Provider Internal Medicine
DX: D50.9 Iron deficiency anemia, unspecified (principal); J44.9 Chronic obstructive pulmonary disease, unspecified; R25.2 Cramp and spasm; K29.50 Unspecified chronic gastritis without bleeding; K31.819 Angiodysplasia of stomach and duodenum without bleeding; E78.00 Pure hypercholesterolemia, unspecified; I10 Essential (primary) hypertension; M25.512 Pain in left shoulder; M25.511 Pain in right shoulder; M54.50 Low back pain, unspecified; E55.9 Vitamin D deficiency, unspecified; F17.200 Nicotine dependence, unspecified, uncomplicated

== ENCOUNTER 2025-07-25 09:47 | Outpatient (REF) | payer OTHER, SELFPAY ==
--- NOTE | ~2025-07-25 | XR_ITS ---
EXAMINATION: XR SHOULDER, RIGHT CLINICAL INFORMATION: M25.511 - Pain in right shoulder COMPARISON: March 19, 2019 TECHNIQUE: AP external rotation, Grashey, scapular Y, and axillary views of the right shoulder. FINDINGS: There is chronic AC joint separation is present on the prior. Chronic ossification is present between the distal clavicle and acromion. Minute osteophytes are present along the inferior glenoid and along the medial humeral head. There is a small degenerative cyst in the lateral anatomic neck of humerus. There is no dislocation. XR/XR shoulder RT min 2V IMPRESSION: Chronic type III AC joint separation. Mild glenohumeral joint degenerative change. Electronically signed by: Rizwan Joseph MD 07/25/2025 01:06 PM EDT
--- NOTE | ~2025-07-25 | XR_ITS ---
EXAMINATION: XR LUMBOSACRAL SPINE CLINICAL INFORMATION: M54.50 - Low back pain, unspecified COMPARISON: None available. TECHNIQUE: Three views of the lumbosacral spine. FINDINGS: Moderate atherosclerotic calcification is present in the abdominal aorta and common iliac arteries. There are 5 nonrib-bearing lumbar segments. There is mild concavity involving superior endplate of L4. T12-L1: There is mild disc space narrowing L1-L2: There is mild disc space narrowing and small osteophytes L2-L3: There is minimal grade 1 anterolisthesis and mild disc space narrowing L3-L4: There is mild disc space narrowing L4-L5: Subtle retrolisthesis, endplate sclerosis and osteophytes with minimal disc space narrowing L5-S1: Unremarkable XR/XR lumbar spine 2-3V IMPRESSION: Age-indeterminate mild superior endplate compression fracture of L4. Mild degenerative disc disease. Electronically signed by: Rizwan Joseph MD 07/25/2025 01:10 PM EDT
[2025-07-25 11:53] LABS: MANUAL DIFF FLAG NO
[2025-07-25 12:31] LABS: Hematocrit 35.9 % (42.0-52.0); Hemoglobin 12.0 g/dl (14.0-18.0); Imm Gran Abs Auto 0.02 X10*3/uL (0.00-0.03); Imm Gran Pct Auto 0.3 % (0.0-0.4); Lymphocytes Absolute Auto 1.7 X10*3/uL (1.2-4.9); Mean Corpuscular HGB Conc 33.4 g/dl (31.0-36.0); Mean Corpuscular Hemoglobin 26.8 pg (27.0-33.0); Mean Corpuscular Volume 80.1 fL (80.0-98.0); NRBC Abs Auto 0.000 X10*3/uL (0.0-0.012); NRBC Pct Auto 0.0 /100WBC (0.0-0.2); Platelet Count 172 X10*3/uL (160-400); Red Blood Count 4.48 X10*6/uL (4.60-5.80); White Blood Count 6.5 X10*3/uL (4.8-10.8)
[2025-07-25 13:02] LABS: Appearance Urine Clear; Glucose Urine UA Negative (Negative); PH 6.0 (5.0-9.0); Specific Gravity - Urine 1.010 (1.005-1.025)
[2025-07-25 13:11] LABS: Alanine Aminotransferase 26 U/L (0-40); Albumin Level 4.7 g/dL (3.5-5.0); Alkaline Phosphatase 66 U/L (39-117); Anion Gap 10 (12-20); Aspartate Amino Transferase 31 U/L (5-37); Blood Urea Nitrogen 8 mg/dL (9-16); Calcium 9.4 mg/dL (8.4-10.2); Carbon Dioxide 28 mmol/L (22-29); Chloride 106 mmol/L (96-108); Cholesterol 124 mg/dL (<200); Estimated Glomerular Filt Rate > 60; HDL Cholesterol 38 mg/dL (>40); Potassium 4.4 mmol/L (3.3-5.1); Sodium 140 mmol/L (135-145); Total Protein 7.5 g/dL (6.5-8.0); Triglycerides 88 mg/dL (<150)
== END 2025-07-25 09:48 | disposition home or self-care (01) ==
LOC: HO.XRAY 09:47
PROVIDERS: PCP Internal Medicine; Visit Provider Internal Medicine
DX: R30.0 Dysuria (principal); M25.511 Pain in right shoulder; D64.9 Anemia, unspecified; E78.00 Pure hypercholesterolemia, unspecified; E55.9 Vitamin D deficiency, unspecified; M54.50 Low back pain, unspecified; R25.2 Cramp and spasm; K29.50 Unspecified chronic gastritis without bleeding; K31.819 Angiodysplasia of stomach and duodenum without bleeding; I10 Essential (primary) hypertension; J44.9 Chronic obstructive pulmonary disease, unspecified; M25.512 Pain in left shoulder; F17.210 Nicotine dependence, cigarettes, uncomplicated; Z79.899 Other long term (current) drug therapy
CPT/HCPCS: 36415; 72100; 73030; 80053; 80061; 81003; 82306; 84443; 85025; 96127; 99212

== ENCOUNTER → 2025-07-25 11:57 | Outpatient (BNV) | payer OTHER, SELFPAY | PROVIDERS: PCP Internal Medicine; Visit Provider Radiology Diagnostic Radiology | DX: M54.50 Low back pain, unspecified (principal); S43.101A Unspecified dislocation of right acromioclavicular joint, initial encounter | CPT/HCPCS: 72100; 73030 ==

== ENCOUNTER 2025-08-26 09:42 | Outpatient (AMB) | payer OTHER, SELFPAY ==
--- NOTE | 2025-08-26 09:53 | MHC.OFFVIS ---
Vital Signs 08/26/25 09:54 Height 5 ft 5 in Weight 117 lb BMI 19.5 BP 97/55 L Blood Pressure Location Lt brachial Position Sitting Pulse 61 Pulse Oximetry (%) 96 Oxygen Delivery Method Room Air Intake Visit Reasons: Colonoscopy Screening Intake Note: Patient new consult for 2nd pre Colonoscopy screening. Patient was saw by February on 10/25/2021.Last Colonoscopy was at [facility] [place] on 2020 by with 3 yrs recall. Patient denies any GI issues for today visit. Windows And Doors Installer Required: No Windows And Doors Installer Services: Windows And Doors Installer Present Windows And Doors Installer Name: Bradly [id number] , [facility] [place] Accompanied by: Self / Same As Patient Allergies iron Adverse Reaction (Severe, Verified 08/26/25 09:53) abdominal pain and severe constipation ferrous fumarate Adverse Reaction (Intermediate, Verified 08/26/25 09:53) Constipation acetaminophen (From TYLENOL) Adverse Reaction (Unknown, Verified 08/26/25 09:53) Liver problems Medication List - Last Reconciled 08/26/25 by Ameena Matamoros CNP baclofen 20 mg PO BEDTIME 30 days cholecalciferol (vitamin D3) 50 mcg PO DAILY 90 days cyanocobalamin (vitamin B-12) 1,000 mcg PO DAILY ibuprofen (Motrin IB) 200 mg PO DAILY ipratropium-albuterol 20-100 mcg/actuation (Combivent Respimat) 1 puff inhalation QID PRN omeprazole 20 mg PO BID propranolol 10 mg PO BID rosuvastatin 5 mg PO DAILY 90 days HPI HPI Colonoscopy Screening: Details: Patient is a 69-year-old male with PMH of COPD, EVERETT. Follow-up for colonoscopy surveillance after prior removal of large, precancerous colon polyps; evaluation of ongoing upper GI symptoms; and management of cirrhosis. Last visit with Mable Morgan NP 10/25/2021 for cirrhosis. Prior colonoscopy in September 2021 that revealed large, precancerous polyps?surveillance colonoscopy delayed due to rescheduling issues. States upper endoscopy at that time revealed stomach inflammation. Reports daily bowel movements with soft, formed stools and denies constipation except with oral iron; tolerates iron only via IV route. Appetite reported as picky eater. Takes omeprazole 20 mg BID for daily heartburn with persistent symptoms, but denies regurgitation or dysphagia. Longstanding liver disease; history of cirrhosis attributed to prior alcohol use (reported abstinent for 20 years). Last liver ultrasound (Jun 2022) showed cirrhosis; recent LFTs (Jul 2025) within normal limits. Currently receiving IV iron for anemia (recent completion of six infusions). Comorbidities include hyperlipidemia, hypertension, and history suggestive of restless legs. Reports chronic musculoskeletal issues requiring daily OTC ibuprofen (two tablets/day) for post-surgical pain. No family history of GI malignancy reported; parental history unknown. Patient denies: fever/chills, n/v, appetite changes, regurgitation, dysphasia, unintentional wt loss, ab pain or melena/hematochezia. 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 [facility] Medical History (Updated 08/26/25 @ 11:30 by Ameena Matamoros CNP) Acid reflux Benign essential hypertension Pure hypercholesterolemia COPD (chronic obstructive pulmonary disease) Nicotine dependence, cigarettes, uncomplicated Iron deficiency anemia Vitamin D deficiency Duodenal arteriovenous malformation Gastritis Tubular adenoma of colon (~2020) Left inguinal pain Surgical History History of elbow surgery History of left inguinal hernia repair (~2009) History of esophagogastroduodenoscopy (EGD) (~2020) History of colonoscopy (~2020) Family History Sister HTN (hypertension) Social History Household Members: Family Housing: Condominium Are you a primary cattle care worker to a significant other at home: No Do you presently have visiting nurse or other home services: No Alcohol intake: former Patient Tobacco Use Status: Current everyday Tobacco user Tobacco use type: Cigarette Cigarette Packs Per Day: 0.5 Years Smoked: (onset 14yo, 1/2ppd x 53yrs, 25+PYH) e-Cigarette/Vaping Use: Never Used service: No Current occupational status: disabled Cognitive needs: No Hearing needs: No Vision needs: No Review of Systems Const Reports as per HPI ENT Reports as per HPI Card Reports as per HPI Resp Reports as per HPI GI Reports as per HPI Reports as per HPI Physical Exam Vital Signs: Last Vital Signs Pulse 61 08/26/25 09:54 BP 97/55 L 08/26/25 09:54 Pulse Ox 96 08/26/25 09:54 Oxygen Delivery Method Room Air 08/26/25 09:54 BMI result Body Mass Index 19.5 Const General: healthy appearing, no acute distress and well developed Nutritional Appearance: average body habitus Orientation/consciousness: patient oriented x3 HEENT Head: Yes normal to inspection, Yes normocephalic and Yes atraumatic Face and sinus: Yes normal facial exam Eyes General: appearance normal, both eyes and all related structures Neck Neck: Yes normal visual inspection Resp Effort & Inspection: normal respiratory effort, able to speak in complete sentences, no tracheal deviation and symmetric chest movement Cardio Jugular venous distension: no JVD GI Inspection: Yes normal to inspection and No distended Palpation (GI): Soft to palpation, not firm, nontender and No hepatosplenomegaly present Auscultation: normal bowel sounds Neuro General: patient oriented x3 Gait exam (Neuro): Normal gait present Psych Appearance: grossly normal Mental Status: mental status grossly normal Speech and movement: Normal speech and movement present Affect: normal affect Attitude: cooperative Thought process: Normal thought process present Thought content: Normal thought content present Insight: Good insight present (Psych) Judgement: Good judgement present (Psych) Results Reviewed Results Reviewed: Operative Note Date of Service: 10/11/21 Narrative: Pre-op diagnosis: Colon cancer screening, iron deficiency anemia Post-op diagnosis: other (Gastritis, hiatal hernia, duodenal AVM) Procedure: FLEXIBLE TRANSORAL UPPER GASTROINTESTINAL ENDOSCOPY WITH BIOPSIES AND APC OF DUODENAL AVM AND COLONOSCOPY TILL CECUM WITH SNARE POLYPECTOMY AND SUBMUCOSAL INJECTION UPPER ENDOSCOPY Procedure: The patient was placed in the left lateral decubitis position and pre-procedure medications were administered and a bite block was placed. The endoscope was inserted into the mouth and advanced under direct vision to the third part of duodenum. A careful inspection was made as the upper endoscope was withdrawn including a retroflexed examination of the proximal stomach; Findings and interventions are described below. Findings: Larynx: Normal Esophagus: GE junction at 36 cms, small hiatal hernia 36 to 38 cms. No esophagitis or Napoles's. Stomach: Moderate diffuse gastric erythema with nodular appearing mucosa in the body and fundus. One small erosion in the antrum. Biopsies were obtained. Grade 2 flap valve on retroflexed examination of the cardia. Duodenum: Normal bulb and descending duodenum. Biopsies were obtained from 3rd part of duodenum to check for celiac sprue. 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 Intervention: Biopsies as noted above COLONOSCOPY PROCEDURE NOTE Procedure: The patient was placed in the left lateral decubitis position and pre-procedure medications were administered. After a digital rectal examination of the ano-rectum, the video colonoscope was inserted into the rectum and advanced through the colon to the cecum. The colonoscope was slowly withdrawn in a retrograde panoramic fashion and the colon mucosa was carefully examined including a retroflexed view of the rectum. Findings and interventions are described below. Procedure Difficulty: : Without difficulty Findings: Terminal Ileum: Not evaluated Cecum: Normal Ascending Colon: Normal Transverse Colon: Two 10 to 15 mm sessile polyps removed with a hot snare. A 2 cms sessile polyp raised with 4 cc of normal saline and removed with a hot snare. Descending Colon: Normal Sigmoid Colon: A 10-12 mm sessile polyp removed with a hot snare. Mild diverticulosis Rectum: Normal Ano-rectum: Large non-bleeding internal hemorrhoids Colon preparation: Good Impression and Post Procedure Diagnosis: Endoscopy Findings: ESOPHAGUS: Small hiatal hernia STOMACH: Moderate diffuse gastric erythema with nodular appearing mucosa in the body and fundus. One small erosion in the antrum DUODENUM: Biopsies were obtained from 3rd part of duodenum to check for celiac sprue. 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 Colonoscopy Findings: Four medium sized polyps removed Mild diverticulosis seen in the sigmoid colon Large hemorrhoids on retroflexed exam. 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 Plan: Await pathology results Patient has an appointment on 10/25/21 in the GI Clinic with Mable Morgan NP. If patient has continued anemia, consider further evaluation with Capsule Endoscopy to check for additional small bowel AVMs. Repeat Colonoscopy interval based on path results - in 3 years if polyps are adenomatous and 10 years if polyps are hyperplastic. Above findings were reviewed with the patient and hiatal hernia, colon polyps and hemorrhoids handouts were given in the discharge area PATHOLOGY: Collected: 10/11/21 Location: [facility] Received: 10/11/21 Diagnosis A. Small bowel, biopsy: Duodenal mucosa within normal limits; negative for celiac disease. B. Stomach, antrum, biopsy: Antral- type mucosa with mild chronic inactive inflammation; no Helicobacter organisms seen. C. Stomach, body, biopsy: Oxyntic mucosa with mild chronic inactive inflammation; no Helicobacter organisms seen. D. Colon, transverse, polypectomies: Fragments of tubular adenomas; no high-grade dysplasia or carcinoma seen. E. Colon, sigmoid, polypectomy: Tubular adenoma; no high grade dysplasia or carcinoma seen. Clinical History Pre-Op Dx: Colon cancer screening, anemia Post-Op Dx: Gastritis, duodenal AVM, colon polyps, diverticulosis, hemorrhoids, r/o sprue, r/o H. pylori, r/ o gastritis Date of Service: 06/23/22 Procedure(s): US abdomen complete Accession Number(s): [id number] cc: YIN LOPEZ MD~ EXAMINATION: US ABDOMEN COMPLETE CLINICAL INFORMATION: Alcoholic cirrhosis. COMPARISON: Ultrasound abdomen complete 07/23/2021 and 12/28/2020. TECHNIQUE: Real-time imaging of the abdominal viscera. FINDINGS: PANCREAS: Visualized portions of the pancreas demonstrate heterogeneous echotexture nonspecific. The tail is not well visualized. ABDOMINAL AORTA: Atherosclerotic calcifications of the distal aorta. The remaining segments are unremarkable. INFERIOR VENA CAVA: Visualized portions are normal. LIVER: Calcification in the right hepatic lobe measuring 2 mm. Liver demonstrates a nodular contour with heterogeneous echotexture suggesting cirrhotic morphology. The liver is normal in size. No focal hepatic lesion. There is no intrahepatic biliary duct dilatation seen. GALLBLADDER: Gallbladder is mildly contracted with a region of focal thickening measuring up to 7 mm with twinkle artifact nonspecific though may represent an element of adenomyomatosis the proper clinical setting. No evidence of calculi, pericholecystic fluid. Sonographic Harper sign is negative. COMMON BILE DUCT: Normal in caliber measuring 0.4 cm in diameter. RIGHT KIDNEY: Normal. No hydronephrosis. No renal calculi or focal parenchymal lesions. The kidney measures 10.3 cm in maximum dimension. LEFT KIDNEY: Normal. No hydronephrosis. No renal calculi or focal parenchymal lesions. The kidney measures 10.3 cm in maximum dimension. SPLEEN: Splenule noted measuring up to 1.0 cm. The spleen measures 10.5 cm in maximum dimension. FREE FLUID: None. US/US abdomen complete IMPRESSION: 1. Calcification in the right hepatic lobe measuring 2 mm. 2. Liver demonstrates a nodular contour with heterogeneous echotexture suggesting cirrhotic morphology. 3. Gallbladder is mildly contracted with a region of focal thickening measuring up to 7 mm with twinkle artifact nonspecific though may represent an element of adenomyomatosis in the proper clinical setting. 4. Splenule noted measuring up to 1.0 cm. Assessment & Plan Assessment & Plan (1) Acid reflux: Comment: 10/11/21 EGD -Gastritis, duodenal AVM, r/o sprue, r/o H. pylori, Code(s): K21.9 - Gastro-esophageal reflux disease without esophagitis Category: Medical Qualifiers: Esophagitis presence: without esophagitis Qualified Code(s): K21.9 - Gastro-esophageal reflux disease without esophagitis Plan: Persistent daily heartburn despite BID PPI, history of gastric inflammation, chronic NSAID use. Additional Testing: Repeat EGD concurrent w/ colonoscopy Medication Management: Continue omeprazole 20 mg BID; prenatal genetic counselor regarding risks of chronic NSAID use; discuss alternatives for pain management (e.g., topical, non-NSAID analgesics). Lifestyle Recommendations: Avoid food/drink triggers; consider limiting Pepsi/soft drinks; encourage small, frequent meals; avoid recumbency after eating. Follow-Up: Review symptom control after repeat EGD; further management per findings. (2) Tubular adenoma of colon: Onset Date: ~2020 Comment: 10/11/21 colonoscopy complete with good prep- 10-12 mm TA ( sigmoid), Two 10 to 15 mm; 2 cms TA ( transverse), diverticulosis, hemorrhoids. Recommendations for repeat in 3 years ( 2023) Code(s): D12.6 - Benign neoplasm of colon, unspecified Category: Medical Plan: High-risk history necessitating 3-year f/u Additional Testing: Colonoscopy scheduled; Miralax/Gatorade-based prep; reinforce bowel prep details. Medication Management: None specific for polyp surveillance. Lifestyle Recommendations: Review bowel prep restrictions; avoid solid foods day prior, no red/blue/purple liquids; ensure reliable transport day of procedure (Team to assist). Follow-Up: Post-procedure GI clinic visit; instructions for scheduling provided. (3) Cirrhosis: Code(s): K74.60 - Unspecified cirrhosis of liver Category: Medical Qualifiers: Hepatic cirrhosis type: alcoholic cirrhosis Ascites presence: without ascites Qualified Code(s): K70.30 - Alcoholic cirrhosis of liver without ascites Plan: Imaging and history confirm diagnosis; ongoing risk for progression/HCC. Additional Testing: Hepatic US ordered; routine labs (CBC, CMP, LFTs, AFP) to monitor for disease progression and HCC completed 07/2025. PT/INR added. Medication Management: Avoid all acetaminophen. Statin use to be reviewed for hepatic safety; ongoing propranolol for portal pressure. Continue IV iron. Lifestyle Recommendations: Strict lifelong alcohol abstinence (successfully maintained for >20 years), avoid hepatotoxic medications, promote healthy diet and regular exercise, coordinate smoking cessation support. Follow-Up: Imaging and labs every 6 months alternating US and CT per liver surveillance protocol; reinforce follow-up. (4) Iron deficiency anemia: Code(s): D50.9 - Iron deficiency anemia, unspecified Category: Medical Qualifiers: Iron deficiency anemia type: unspecified iron deficiency Qualified Code(s): D50.9 - Iron deficiency anemia, unspecified Plan: Completed course of IV iron; history of intolerance to PO iron; labs stable. Managed by PCP Additional Testing: Monitor ferritin, CBC at intervals. Medication Management: Continue IV iron as needed; reassess need per Hgb/ferritin. Lifestyle Recommendations: Balanced diet with adequate iron; avoid self-restarting oral iron. Follow-Up: Periodic labs per protocol; re-evaluate for ongoing blood loss if anemia persists/recurs. Plan Follow-up after endoscopy or sooner as needed Time: I spent a total of 33 minutes on the date of encounter which includes: Preparing to see the patient (reviewed previous documentation, test results and medical history) Performing a medically appropriate exam and/or evaluation Ordering medications, tests, and procedures Documenting clinical information in the health record Orders: Orders US abdomen complete Today K74.60 - Unspecified cirrhosis of liver Prothrombin Time INR Today K74.60 - Unspecified cirrhosis of liver Referrals GI Procedure Notification D12.6 - Benign neoplasm of colon, unspecified, K21.9 - Gastro-esophageal reflux disease without esophagitis, Z12.11 - Encounter for screening for malignant neoplasm of colon Medications: New bisacodyl Take per colonoscopy instructions 5 mg PO ONCE 4 tabs 0RF polyethylene glycol 3350 (Miralax) per colonoscopy prep instructions 238 grams PO ONCE 238 grams 0RF Coding Level of Care Code Established Pt Est Pt Level 3 (14801) Patient Type Established Diagnoses Gastroesophageal reflux disease without esophagitis K21.9 Esophagitis presence: without esophagitis Tubular adenoma of colon D12.6 Alcoholic cirrhosis of liver without ascites K70.30 Hepatic cirrhosis type: alcoholic cirrhosis Ascites presence: without ascites Iron deficiency anemia, unspecified iron deficiency anemia type D50.9 Iron deficiency anemia type: unspecified iron deficiency
[2025-08-26 09:54] VITALS: BP 97/55; PULSE 61; O2SAT 96; BMI 19.5
--- OUTSIDE RECORDS SUMMARY | 2025-08-26 11:03 | XMS_ITS | Clinical Summary ---
Author Organization [employer] Address [address] [facility] [address] [place] [address] Care Team Providers Care Vigoureux Printer Name Role Phone Unavailable Primary Care Provider [...] tabletIndication s:Alcoholic cirrhosis, unspecified whether ascites present (HCC) TOME LUZ TABLETA DOS VECES AL ALBIN [...] 08/07/2012, 07/13/2004 COVID-19 Vaccine (5 - season) 2025 10/19/2022, 11/09/2021, 04/01/2021, Additional history exists Influenza [...] LAB SYSTEM LDL Cholesterol 118(H) mg/dL (calc) [facility] Comment: Reference range: <100 Desirable range <100 mg/dL for primary prevention; <70 mg/dL for patients with CHD or diabetic patients with > or = 2 CHD risk factors. LDL-C is now calculated using the Austen-Romel calculation, which is a validated novel method providing better accuracy than the Friedewald equation in the estimation of LDL-C. Austen SS et al. RAMON. 2013;310(19): 4008-8813 (http://education.[employer].com/faq/CCZ028) Non-HDL Cholesterol 145(H) <130 mg/dL (calc) [facility] Comment: For patients with diabetes plus 1 major ASCVD risk factor, treating to a non-HDL-C goal of <100 mg/dL (LDL-C of <70 mg/dL) is considered a therapeutic option. Triglycerides 154(H) <150 mg/dL [facility] 03/29/2022 us Demetris Romero MD LAB BLOOD ORDERABLES Final R esult [facility] [address] from Last 3 Months or Most Recently Relevant to Health Maintenance
--- OUTSIDE RECORDS SUMMARY | 2025-08-26 11:03 | XMS_ITS | Encounter Summary ---
Author Organization [employer] Address [address] [facility] [address] [place] [address] Care Team Providers Care Outside Salesman Name Role Phone Unavailable Primary Care Provider Unavailabl e Reason for Visit * Reason Comments Med Refill Encounter Details Date Type Department Care Team (Late st Contact Info) Description 06/28/2023 Refill [facility] [address] [place] [address] Leyla Cruz FNP [address] [employer], [place] [id number] Social History Tobacco Use Types Packs/Day Years [...]
--- OUTSIDE RECORDS SUMMARY | 2025-08-26 11:03 | XMS_ITS | Encounter Summary ---
Author Organization [employer] Address [address] [facility] [address] [place] [address] Care Team Providers Care Linoleum Layer Helper Name Role Phone Unavailable Primary Care Provider Unavailabl e Reason for Visit * Reason Comments Med Refill Encounter Details Date Type Department Care Team (Late st Contact Info) Description 06/15/2023 Refill [facility] [address] [place] [address] Leyla Cruz FNP [address] [place], [place] [phone] Gastroesophageal reflux disease, unspecified whether esophagitis present [...]
--- OUTSIDE RECORDS SUMMARY | 2025-08-26 11:03 | XMS_ITS | Patient Health Record ---
Author Organization [facility] Address [address] [place] [address] Care Team Providers Care Social Psychologist Name Role Phone Abdirashid Baird Unavailable [phone] Reason For Referral No Information Plan Of Treatment No Information
--- OUTSIDE RECORDS SUMMARY | 2025-08-26 11:03 | XMS_ITS | Encounter Summary ---
Author Organization [employer] Address [address] [facility] [address] [place] [address] Care Team Providers Care Technologist Development Name Role Phone Leyla Cruz Primary Care Provider [phone] Jagdish Reyna Primary Care Provider Unavail able Encounter Details Date Type Department Care Team (Late st Contact Info) Description 03/21/2023 Orders Only [facility] [address] [place], [place] [phone] Debbie Melissa LPN Social History Tobacco Use [...] on filedocumented in this encounter Care Teams Technologist Development Relationship Specialty Start Date End Date Leyla Cruz FNP [address] [place] [address] PCP - General Family Medicine 10/19/22 04/20/23 Jagdish Reyna AGNP [address] [place] [address] PCP - General Family Medicine 04/21/23 06/13/23 documented as of this encounter
== END 2025-08-26 10:53 | disposition home or self-care (01) ==
LOC: HO.HGI 09:42
PROVIDERS: PCP Internal Medicine; Visit Provider Nurse Practitioner Family
DX: K21.9 Gastro-esophageal reflux disease without esophagitis (principal); D12.6 Benign neoplasm of colon, unspecified; K70.30 Alcoholic cirrhosis of liver without ascites; D50.9 Iron deficiency anemia, unspecified
CPT/HCPCS: 99213

== ENCOUNTER → 2025-08-26 09:42 | Outpatient (BNVA) | payer OTHER, SELFPAY | PROVIDERS: PCP Internal Medicine; Visit Provider Nurse Practitioner Family | DX: K21.9 Gastro-esophageal reflux disease without esophagitis (principal); D12.6 Benign neoplasm of colon, unspecified; K70.30 Alcoholic cirrhosis of liver without ascites; D50.9 Iron deficiency anemia, unspecified; F10.11 Alcohol abuse, in remission; Z72.0 Tobacco use | CPT/HCPCS: 99212 ==

== ENCOUNTER 2025-11-05 09:33 | Outpatient (REF) | payer OTHER, SELFPAY ==
--- NOTE | ~2025-11-05 | US_ITS ---
EXAMINATION: US ABDOMEN COMPLETE CLINICAL INFORMATION: Cirrhosis. Surveillance. K 74.60. COMPARISON: June 23, 2022 TECHNIQUE: Real-time ultrasound of the abdomen using grayscale and color Doppler technique. FINDINGS: PANCREAS: No peripancreatic fluid collection. ABDOMINAL AORTA: The proximal, mid, and distal segments are normal in caliber. INFERIOR VENA CAVA: Visualized portions are normal. LIVER: Liver measures 14 cm. Prominent caudate lobe. Subtle nodular surface. No solid or cystic lesion. Coarse echotexture. Portal vein is patent with hepatopedal flow direction. No gross intrahepatic biliary ductal dilatation. GALLBLADDER: Gallbladder wall irregularity with hyperechoic abnormalities. Gallbladder wall measures 3 mm. No distention. No intraluminal abnormality. COMMON BILE DUCT: 5 mm. RIGHT KIDNEY: 10 cm. Normal echotexture. Renal cortical thickness is normal. No hydronephrosis. No solid or cystic lesion.. LEFT KIDNEY: 11 cm. Normal echotexture. Renal cortical thickness is normal. No hydronephrosis. No gross solid or cystic lesion. SPLEEN: 10 cm. No solid or cystic lesion. 1.2 cm accessory spleen, splenic hilum.. FREE FLUID: None. US/US abdomen complete IMPRESSION: No solid or cystic lesion, hepatic. No ascites. Questionable adenomyomatosis, gallbladder. No hydronephrosis. Electronically signed by: Oniel Nelson MD 11/05/2025 10:35 AM EST
--- OUTSIDE RECORDS SUMMARY | 2025-11-05 11:01 | XMS_ITS | Patient Health Record ---
Author Organization [facility] Address [address] [place] [address] Care Team Providers Care Hand Umbrella Tipper Name Role Phone Abdirashid Baird Unavailable [phone] Reason For Referral No Information Plan Of Treatment No Information
== END 2025-11-05 09:34 | disposition home or self-care (01) ==
LOC: HO.US 09:33
PROVIDERS: PCP Internal Medicine; Visit Provider Nurse Practitioner Family
DX: K74.60 Unspecified cirrhosis of liver (principal)
CPT/HCPCS: 76700

== ENCOUNTER → 2025-11-05 09:36 | Outpatient (BNV) | payer OTHER, SELFPAY | PROVIDERS: PCP Internal Medicine; Visit Provider Radiology Diagnostic Radiology | DX: K74.60 Unspecified cirrhosis of liver (principal) | CPT/HCPCS: 76700 ==